=== PATIENT | female | born 1945 | race Caucasian/White ===

== ENCOUNTER → 2018-05-02 08:13 | Outpatient (CLI) | payer MEDICARE, OTHER, SELFPAY ==
[2018-05-02 09:28] LABS: Hemoglobin A1C% w Est Avg Glu 6.4 % (4.0-6.0)
[2018-05-02 09:32] LABS: Creatinine Urine Random 69.5 mg/dL
[2018-05-02 09:44] LABS: Alanine Aminotransferase 23 IU/L (9-52); Albumin 4.3 g/dL (3.5-5.0); Albumin Globulin Ratio 1.1 (1.0-2.8); Alkaline Phosphatase 63 U/L (38-126); Aspartate Aminotransferase 23 IU/L (14-36); BUN Creatinine Ratio 21.4 (6-22); Bilirubin Total 0.8 mg/dL (0.2-1.3); Blood Urea Nitrogen 15 mg/dL (7-17); Calcium 9.2 mg/dL (8.4-10.2); Carbon Dioxide 30 mmol/L (22-32); Chloride 102 mmol/L (98-107); Cholesterol 130 mg/dL (140-199); Estimated Glomerular Filt Rate > 60.0 mL/min (>60); Globulin 3.8 g/dL (1.7-4.1); Glucose 78 mg/dL (80-110); HDL Cholesterol 36 mg/dL (40-60); HEMOLYSIS < 15 (0-50); LDL Cholesterol Calculated 70 mg/dL (<100); Potassium 3.9 mmol/L (3.4-5.1); Sodium 140 mmol/L (137-145); Total Protein 8.1 g/dL (6.3-8.2); Triglycerides 118 mg/dL (35-150)
[2018-05-02 09:50] LABS: Microalbumi Creatinin Ratio Ur 8.6 ug/mg CR (<30); Microalbumin Urine Random < 0.6 mg/dL (0-1.6)
[2018-05-02 10:05] LABS: Thyroid Stimulating Hormone 4.03 uIU/mL (0.47-4.68)
== END ==
PROVIDERS: PCP Physician Assistant; Visit Provider Physician Assistant
DX: E11.9 Type 2 diabetes mellitus without complications (principal); E78.5 Hyperlipidemia, unspecified; I10 Essential (primary) hypertension
CPT/HCPCS: 36415; 80053; 80061; 82043; 82570; 83036; 84443

== ENCOUNTER → 2018-05-31 11:38 | Outpatient (CLI) | payer MEDICARE, OTHER, SELFPAY ==
--- NOTE | 2018-05-31 11:39 | DI.MG.S_ITS ---
BILATERAL DIGITAL SCREENING MAMMOGRAM 3D/2D WITH CAD: 05/31/2018 CLINICAL: Routine screening. Comparison is made to exams dated: 02/28/2016 mammogram, 10/30/2014 mammogram, and 04/17/2013 mammogram - [facility]. The tissue of both breasts is predominantly fatty. Current study was also evaluated with a Computer Aided Detection (CAD) system. No significant masses, calcifications, or other findings are seen in either breast. There has been no significant interval change. IMPRESSION: NEGATIVE There is no mammographic evidence of malignancy. A 1 year screening mammogram is recommended. This exam was interpreted at Station ID: [id number]. NOTE: For mammograms, a report in lay terms will be sent to the patient. Approximately 15% of breast malignancies will not be visualized mammographically. In the management of a palpable breast mass, a negative mammogram must not discourage biopsy of a clinically suspicious lesion. Electronically Signed By: Lloyd smith/tommy:05/31/2018 16:56:34 letter sent: Normal Exam ACR BI-RADS Category 1: Negative 3341F
== END ==
PROVIDERS: Family Provider Physician Assistant; PCP Physician Assistant; Visit Provider Physician Assistant
DX: Z12.31 Encounter for screening mammogram for malignant neoplasm of breast (principal)
CPT/HCPCS: 77063; 77067

== ENCOUNTER → 2019-03-24 09:00 | Outpatient (CLI) | payer MEDICARE, OTHER, SELFPAY ==
[2019-03-24 10:17] LABS: Hemoglobin A1C% w Est Avg Glu 5.7 % (4.0-6.0)
[2019-03-24 10:44] LABS: Alanine Aminotransferase 20 IU/L (9-52); Albumin 4.2 g/dL (3.5-5.0); Albumin Globulin Ratio 1.2 (1.0-2.8); Alkaline Phosphatase 55 U/L (38-126); Aspartate Aminotransferase 23 IU/L (14-36); Bilirubin Total 0.9 mg/dL (0.2-1.3); Blood Urea Nitrogen 18 mg/dL (7-17); Calcium 9.8 mg/dL (8.4-10.2); Carbon Dioxide 28 mmol/L (22-32); Chloride 103 mmol/L (98-107); Cholesterol 140 mg/dL (140-199); Estimated Glomerular Filt Rate > 60.0 mL/min (>60); Globulin 3.4 g/dL (1.7-4.1); Glucose 112 mg/dL (80-110); HDL Cholesterol 36 mg/dL (40-60); HEMOLYSIS < 15 (0-50); LDL Cholesterol Calculated 88 mg/dL (<100); Potassium 3.9 mmol/L (3.4-5.1); Sodium 141 mmol/L (137-145); Total Protein 7.6 g/dL (6.3-8.2); Triglycerides 81 mg/dL (35-150)
[2019-03-24 12:19] LABS: Creatinine Urine Random 82.5 mg/dL
[2019-03-24 12:25] LABS: Microalbumi Creatinin Ratio Ur 7.2 ug/mg CR (<30); Microalbumin Urine Random < 0.6 mg/dL (0-1.6)
== END ==
PROVIDERS: PCP Physician Assistant; Visit Provider Physician Assistant
DX: E11.9 Type 2 diabetes mellitus without complications (principal); E78.5 Hyperlipidemia, unspecified; I10 Essential (primary) hypertension
CPT/HCPCS: 36415; 80053; 80061; 82043; 82570; 83036

== ENCOUNTER → 2019-06-06 15:12 | Outpatient (CLI) | payer MEDICARE, OTHER, SELFPAY ==
--- NOTE | 2019-06-06 15:14 | DI.MG.S_ITS ---
BILATERAL DIGITAL SCREENING MAMMOGRAM 3D/2D WITH CAD: 06/06/2019 CLINICAL: Routine screening. Comparison is made to exams dated: 05/31/2018 mammogram, 02/28/2016 mammogram, and 10/30/2014 mammogram - [facility]. The tissue of both breasts is predominantly fatty. Current study was also evaluated with a Computer Aided Detection (CAD) system. There are benign vascular calcifications and calcifications in both breasts. No significant masses, calcifications, or other findings are seen in either breast. There has been no significant interval change. IMPRESSION: There is no mammographic evidence of malignancy. A 1 year screening mammogram is recommended. This exam was interpreted at Station ID: [id number]. NOTE: For mammograms, a report in lay terms will be sent to the patient. Approximately 15% of breast malignancies will not be visualized mammographically. In the management of a palpable breast mass, a negative mammogram must not discourage biopsy of a clinically suspicious lesion. Electronically Signed By: Ghislaine evans/tommy:06/06/2019 16:06:21 letter sent: Normal Exam ACR BI-RADS Category 2: Benign Finding(s) 3342F
== END ==
PROVIDERS: PCP Physician Assistant; Visit Provider Physician Assistant
DX: Z12.31 Encounter for screening mammogram for malignant neoplasm of breast (principal)
CPT/HCPCS: 77063; 77067

== ENCOUNTER → 2020-04-19 08:11 | Outpatient (CLI) | payer MEDICARE, OTHER, SELFPAY ==
[2020-04-19 09:36] LABS: Basophils Absolute Auto 0 /uL (0-100); Basophils Percent Auto 0.5 % (0-2); Eosinophils Absolute Auto 500 /uL (0-450); Eosinophils Percent Auto 8.9 % (2-4); Hematocrit 37.1 % (36-46); Hemoglobin 12.7 g/dL (12.0-16.0); Lymphocytes Absolute Auto 2900 /uL (1100-4500); Lymphocytes Percent Auto 49.7 % (25-40); Mean Corpuscular HGB Conc 34.3 % (30-36); Mean Corpuscular Hemoglobin 31.8 PG (26-34); Mean Corpuscular Volume 92.6 fL (80-100); Monocytes Absolute Auto 500 /uL (0-900); Monocytes Percent Auto 8.3 % (3-14); Neutrophils Absolute Auto 1900 /uL (1500-7000); Neutrophils Percent Auto 32.6 % (50-75); Platelet Count 240 X10^3/uL (150-400); Red Blood Cell Count 4.01 X10^6/uL (4.0-5.2); Red Cell Distribution Width 13.9 % (11.6-14.8); White Blood Cell Count 5.9 X10^3/uL (4.5-11.0)
[2020-04-19 09:37] LABS: Add Manual Diff / Slide Review SLIDE REVIEW
[2020-04-19 09:44] LABS: Hemoglobin A1C% w Est Avg Glu 7.1 % (4.0-6.0)
[2020-04-19 09:59] LABS: RBC Morphology Normal Morphology
[2020-04-19 10:01] LABS: Platelet Estimate Adequate on smear
[2020-04-19 10:50] LABS: Alanine Aminotransferase 23 IU/L (<35); Albumin 4.2 g/dL (3.5-5.0); Albumin Globulin Ratio 1.1 (1.0-2.8); Alkaline Phosphatase 68 U/L (38-126); Aspartate Aminotransferase 27 IU/L (14-36); BUN Creatinine Ratio 21.9 (6-22); Bilirubin Total 0.7 mg/dL (0.2-1.3); Blood Urea Nitrogen 16 mg/dL (7-17); Calcium 9.5 mg/dL (8.4-10.2); Carbon Dioxide 28 mmol/L (22-32); Chloride 103 mmol/L (98-107); Cholesterol 161 mg/dL (140-199); Estimated Glomerular Filt Rate > 60.0 mL/min (>60); Glucose 112 mg/dL (80-110); HDL Cholesterol 29 mg/dL (40-60); HEMOLYSIS < 15 (0-50); LDL Cholesterol Calculated 109 mg/dL (<100); Potassium 4.3 mmol/L (3.4-5.1); Sodium 138 mmol/L (137-145); Total Protein 8.2 g/dL (6.3-8.2); Triglycerides 117 mg/dL (35-150)
[2020-04-19 10:59] LABS: Vitamin D 25 Hydroxy (D3) 35.4 ng/mL (30.0-100.0)
== END ==
PROVIDERS: PCP Family Medicine; Referring Provider Family Medicine; Visit Provider Family Medicine
DX: E11.9 Type 2 diabetes mellitus without complications (principal); E78.2 Mixed hyperlipidemia; I10 Essential (primary) hypertension; E55.9 Vitamin D deficiency, unspecified
CPT/HCPCS: 36415; 80053; 80061; 82306; 83036; 85025

== ENCOUNTER → 2021-04-09 10:49 | Outpatient (CLI) | payer MEDICARE, SELFPAY ==
--- NOTE | 2021-04-09 10:54 | DI.MG.S_ITS ---
BILATERAL DIGITAL SCREENING MAMMOGRAM 3D/2D WITH CAD: 04/09/2021 CLINICAL: Routine screening. Comparison is made to exams dated: 06/06/2019 mammogram, 05/31/2018 mammogram, and 02/28/2016 mammogram - [facility]. The tissue of both breasts is predominantly fatty. Current study was also evaluated with a Computer Aided Detection (CAD) system. There are benign calcifications in both breasts. There also are benign vascular calcifications in both breasts. No significant masses, calcifications, or other findings are seen in either breast. There has been no significant interval change. IMPRESSION: BENIGN There is no mammographic evidence of malignancy. A 1 year screening mammogram is recommended. This exam was interpreted at Station ID: [id number]. NOTE: For mammograms, a report in lay terms will be sent to the patient. Approximately 15% of breast malignancies will not be visualized mammographically. In the management of a palpable breast mass, a negative mammogram must not discourage biopsy of a clinically suspicious lesion. Electronically Signed By: Dary garcia/tommy:04/09/2021 13:03:57 letter sent: Normal Exam ACR BI-RADS Category 2: Benign Finding(s) 3342F
== END ==
PROVIDERS: PCP Family Medicine; Referring Provider Family Medicine; Visit Provider Family Medicine
DX: Z12.31 Encounter for screening mammogram for malignant neoplasm of breast (principal)
CPT/HCPCS: 77063; 77067

== ENCOUNTER → 2021-04-15 10:15 | Outpatient (CLI) | payer MEDICARE, SELFPAY ==
[2021-04-15 11:29] LABS: Add Manual Diff / Slide Review NO; Basophils Absolute Auto 0 /uL (0-100); Basophils Percent Auto 0.5 % (0-2); Eosinophils Absolute Auto 200 /uL (0-450); Eosinophils Percent Auto 2.8 % (2-4); Hematocrit 38.4 % (36-46); Hemoglobin 12.9 g/dL (12.0-16.0); Lymphocytes Absolute Auto 3000 /uL (1100-4500); Lymphocytes Percent Auto 42.4 % (25-40); Mean Corpuscular HGB Conc 33.5 % (30-36); Mean Corpuscular Hemoglobin 31.6 PG (26-34); Mean Corpuscular Volume 94.2 fL (80-100); Monocytes Absolute Auto 500 /uL (0-900); Monocytes Percent Auto 7.2 % (3-14); Neutrophils Absolute Auto 3300 /uL (1500-7000); Neutrophils Percent Auto 47.1 % (50-75); Platelet Count 237 X10^3/uL (150-400); Red Blood Cell Count 4.08 X10^6/uL (4.0-5.2); Red Cell Distribution Width 13.6 % (11.6-14.8)
[2021-04-15 11:33] LABS: Hemoglobin A1C% w Est Avg Glu 6.9 % (4.0-6.0)
[2021-04-15 11:40] LABS: Alanine Aminotransferase 31 IU/L (<35); Albumin 4.5 g/dL (3.5-5.0); Albumin Globulin Ratio 1.1 (1.0-2.8); Alkaline Phosphatase 68 U/L (38-126); Aspartate Aminotransferase 33 IU/L (14-36); BUN Creatinine Ratio 25.6 (6-22); Bilirubin Total 0.9 mg/dL (0.2-1.3); Blood Urea Nitrogen 20 mg/dL (7-17); Calcium 9.9 mg/dL (8.4-10.2); Carbon Dioxide 28 mmol/L (22-32); Chloride 103 mmol/L (98-107); Cholesterol 172 mg/dL (140-199); Estimated Glomerular Filt Rate > 60.0 mL/min (>60); Globulin 4.2 g/dL (1.7-4.1); Glucose 122 mg/dL (80-110); HDL Cholesterol 34 mg/dL (40-60); HEMOLYSIS < 15 (0-50); LDL Cholesterol Calculated 109 mg/dL (<100); Sodium 139 mmol/L (137-145); Total Protein 8.7 g/dL (6.3-8.2); Triglycerides 144 mg/dL (35-150)
[2021-04-15 11:57] LABS: Vitamin D 25 Hydroxy (D3) 28.5 ng/mL (30.0-100.0)
== END ==
PROVIDERS: PCP Family Medicine; Referring Provider Family Medicine; Visit Provider Family Medicine
DX: E11.9 Type 2 diabetes mellitus without complications (principal); E55.9 Vitamin D deficiency, unspecified; E78.2 Mixed hyperlipidemia; I10 Essential (primary) hypertension
CPT/HCPCS: 36415; 80053; 80061; 82306; 83036; 85025

== ENCOUNTER → 2021-05-22 11:31 | Outpatient (CLI) | payer MEDICARE, SELFPAY ==
--- NOTE | 2021-05-22 11:33 | DI.RAD.S_ITS ---
PROCEDURE: XR KNEE LT 3V INDICATIONS: pain TECHNIQUE: 3 views of the knee were acquired. COMPARISON: [facility], , KNEE 3V LEFT, 06/20/2013, 11:47. FINDINGS: Bones: Moderate tricompartmental osteoarthritis is seen most prominent in medial femoral tibial compartment. No fractures or dislocations. No suspicious bony lesions. Soft tissues: No joint effusion. No suspicious soft tissue calcifications. 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 No fracture or dislocation. No significant joint effusion. Dictated by: Joe Duke M.D. on 05/22/2021 at 12:14 Approved by: Joe Duke M.D. on 05/22/2021 at 12:15
--- NOTE | 2021-05-22 11:33 | DI.RAD.S_ITS ---
PROCEDURE: XR KNEE RT 3V INDICATIONS: pain TECHNIQUE: 3 views of the knee were acquired. COMPARISON: [facility], , KNEE 3V LEFT, 06/20/2013, 11:47. FINDINGS: Bones: No fractures or dislocations. Moderate tricompartmental osteoarthritis is seen more prominent in medial femoral tibial compartment. No suspicious bony lesions. Soft tissues: No joint effusion. No suspicious soft tissue calcifications. 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 No fracture or dislocation. Dictated by: Joe Duke M.D. on 05/22/2021 at 11:58 Approved by: Joe Duke M.D. on 05/22/2021 at 12:14
== END ==
PROVIDERS: PCP Family Medicine; Referring Provider Family Medicine; Visit Provider Family Medicine
DX: M25.561 Pain in right knee (principal); M25.562 Pain in left knee; M16.0 Bilateral primary osteoarthritis of hip; G89.29 Other chronic pain
CPT/HCPCS: 73562

== ENCOUNTER 2021-06-25 08:15 | Outpatient (RCR) | payer MEDICARE, SELFPAY ==
--- NOTE | 2021-06-20 09:58 | PT.OIE ---
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) History of pneumonia (~2013) Hx of cholecystectomy (Unknown) Hx of knee surgery (Unknown) Hx of myocardial infarction (~2013) Hyperlipemia (Unknown) Hypertension (Unknown) Medicare annual wellness visit, subsequent Pyelonephritis (~2013) Somatic dysfunction of lower extremity Vitamin D deficiency Past Surgical History (Last Reviewed 04/16/20 @ 17:09 by Leonides Murray DO) History of back surgery (Unknown) 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) Hx of cholecystectomy (Unknown) Hx of hysterectomy (Unknown) Hx of knee surgery (Unknown) Visit Care Team Role Provider Type Leonides Murray DO Attending Provider Physician Primary Care Provider Referring Provider Specialty: [facility] Address: [address] [place] [address] Email: Physical Therapy Initial Evaluation PT-OP-A Visit Information Start: 06/20/21 09:37 Freq: Status: Active Protocol: Document 06/20/21 09:37 (Rec: 06/20/21 09:58 [email or web address]) Out-Patient Physical Therapy Visit Information Visit Information Visit Type Initial Evaluation Visit Start Time 08:45 Visit Stop Time 09:30 Total Visit Minutes 45 Visit Number 1 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 Recent x-ray shows moderate tricompartmental osteoarthritis more prominent in medial femoral tibial compartment. She also had bilateral cortisone injection at her knees few weeks ago from Dr. Murray. She is feeling better now with pain 3-4/10 but it was 6/10 prior to injection. She stated she had difficulty in walking more than a few blocks, specifically painful climbing stairs. Her pain limits her to go for long walks and kneel to reach for pantry. She lives in a 5th wheel so she does climb steps and reach down often. Prior Treatments and Tests meniscal repair bilateral within the past 10 years. Pt does not recall whether it's medial / lateral Cortisone injection from Dr. Murray on both knees recent x-ray =Moderate tricompartmental osteoarthritis more prominent in medial femoral tibial compartment PT-OP-C Subjective Start: 06/20/21 09:37 Freq: Status: Active Protocol: Document 06/20/21 09:37 HH (Rec: 06/20/21 09:58 HH [email or web address]) Patient Questionnaires Lower Extremity Functional Scale LEFS Score 49 LEFS Impairment 20 to 39% Impaired (Score 48- 62) OP-PT Pain Assessment Location B knee Pain Location Details medial knee joint line Intensity 4 Scale Used Numeric (0 - 10) Description Aching Frequency Frequent Pain Aggravating Factors ADL's,Activity,Exercise, Standing,Walking,Stair Climbing Pain Alleviating Factors Inactivity PT-OP-D Balance Start: 06/20/21 09:37 Freq: Status: Active Protocol: Document 06/20/21 09:37 HH (Rec: 06/20/21 09:58 HH [email or web address]) Balance Tests Single Limb Standing Single Limb- Right >30 Single Limb- Left >30 PT-OP-F Manual Assessment Start: 06/20/21 09:37 Freq: Status: Active Protocol: Document 06/20/21 09:37 HH (Rec: 06/20/21 09:58 HH [email or web address]) Manual Assessments Soft Tissue Assessment Soft Tissue Mobility Assessment significant toncity at hip adductors, and abductors. PT-OP-G Mobility & Gait Start: 06/20/21 09:37 Freq: Status: Active Protocol: Document 06/20/21 09:37 HH (Rec: 06/20/21 09:58 HH [email or web address]) OP Gait Assessment Comments Gait Comments dec stride length and lateral thrust noted at R/L knee during stance phase. PT-OP-K Range of Motion Start: 06/20/21 09:37 Freq: Status: Active Protocol: Document 06/20/21 09:37 HH (Rec: 06/20/21 09:58 [email or web address]) Knee Goniometric Range of Motion Knee Right Flexion Active (degrees) 131 Extension Passive (degrees) 4 Left Flexion Active (degrees) 137 Extension Passive (degrees) 3 Comments pain with end range flexion. PT-OP-L Special Tests Start: 06/20/21 09:37 Freq: Status: Active Protocol: Document 06/20/21 09:37 HH (Rec: 06/20/21 09:58 [email or web address]) Special Tests Knee Special Tests Patellar Grind Test Test Results +VE Muriel Test Test Results -ve Apley's Compression Test Results -ve Apprehension Test Test Results -ve Varus- 0 Degrees Test Results -ve Valgus- 0 Degrees Test Results -ve Varus- 25 Degrees Test Results -ve Valgus- 25 Degrees Test Results -ve PT-OP-M Strength Start: 06/20/21 09:37 Freq: Status: Active Protocol: Document 06/20/21 09:37 HH (Rec: 06/20/21 09:58 [email or web address]) Hip Strength Hip Manual Muscle Testing Right Flexion (L2) 4- Good- Extension (S1) 4- Good- Abduction 4- Good- Adduction 4- Good- Left Flexion (L2) 4- Good- Extension (S1) 4- Good- Abduction 4- Good- Adduction 4- Good- Knee Strength Knee Manual Muscle Testing Right Flexion (S2) 4 Good Extension (L3) 4 Good Left Flexion (S2) 4 Good Extension (L3) 4 Good Ankle/Foot Strength Ankle and Foot Manual Muscle Testing Right Dorsiflexion (L4) 4 Good Plantarflexion (S1) 4 Good Left Dorsiflexion (L4) 4 Good Plantarflexion (S1) 4 Good PT-OP-Q Treatments Start: 06/20/21 09:37 Freq: Status: Active Protocol: Document 06/20/21 09:37 HH (Rec: 06/20/21 09:58 [email or web address]) Therapeutic Exercises Supine Exercises hip add squeeze Side bilateral Reps/Minutes 10s x10 Comments for HEP piriformis stretch Side bilateral Reps/Minutes 15s x 5 Comments for HEP Standing Exercises calf raises Side bilateral Reps/Minutes 10 x2 tennis ball release Standing Exercise Name on bilateral buttocks Comments for hEP PT-OP-T Assessment and Plan Start: 06/20/21 09:37 Freq: Status: Active Protocol: Document 06/20/21 09:37 (Rec: 06/20/21 09:58 [email or web address]) Physical Therapy Assessment Rehab Potential Rehabilitation Potential Good Evaluation Complexity Number of Personal Factors/Comorbidities 1-2 Number of Body Systems Impaired 1-2 Clinical Presentation at Evaluation Stable Impairments Impairments Activity Tolerance,Balance, Functional Activities, Functional Mobility,Gait,Pain, Posture,ROM,Soft Tissue Mobility,Strength Goals HEP Impairment pt does not have HEP Short Term Goal (STG) pt will comply to daily HEP safely and independently without increase in pain STG Duration 4weeks LEFS Impairment pt scores 49 on LEFS Short Term Goal (STG) pt will be able to show improved mobility and strength by scoring 55 on LEFS STG Duration 4 weeks Assessment Summary Assessment Emily is a 76 yo female here for her chronic bilateral knee pain R>L which affects her ability to walk, kneel and climb stairs. Her recent x- ray shows Moderate tricompartmental osteoarthritis more prominent in medial femoral tibial compartment. Upon assessment, pt's symptoms are minimal possibly d/t her recent cortisone injection. She only has discomfort with end range flexion and patella grind test . However, She presents moderate knee varus posture with lateral knee thrust during gait. Pt will benefit from skilled therapy for postural correction, hip adductors strengthening to improve her knee strength and stability. However, [place] so her progress will be limited. Will focus primarily on pt education. Physical Therapy Plan Frequency and Duration Frequency of Treatment 1-2/wk Duration of Treatment 4 weeks Plan of Care Start Date 06/20/21 Plan of Care End Date 07/20/21 Therapeutic Interventions Therapeutic Interventions Aquatic Therapy,Balance Training,Gait Training,Home Exercise Program,Joint Mobilizations,Manual Therapy, Neuromuscular Re-education, Patient/Caregiver Education, Self-Care/Home Management,Soft Tissue Mobilization,Taping, Therapeutic Activities, Therapeutic Exercises Modalities Cold Pack/Ice Massage,Electric Stimulation,Hot Packs, Infrared Therapy,Ultrasound Next Visit Focus/Plan Next Note Type Treatment Note Next Visit Plan hip add strengthening STM on hip hip stretches
--- NOTE | 2021-06-20 09:58 | PT.OPPOC ---
Physical, Occupational & Speech Therapy At [facility] Current Diagnoses Other chronic pain (06/20/21) Pain in right knee (06/20/21) Pain in left knee (06/20/21) Visit Care Team Role Provider Type Leonides Murray DO Attending Provider Physician Primary Care Provider Referring Provider Specialty: Family Practice Address: [address] [place] [address], [facility] Email: Plan Of Care PT-OP-T Assessment and Plan Start: 06/20/21 09:37 Freq: Status: Active Protocol: Document 06/20/21 09:37 (Rec: 06/20/21 09:58 [email or web address]) Physical Therapy Assessment Rehab Potential Rehabilitation Potential Good Evaluation Complexity Number of Personal Factors/Comorbidities 1-2 Number of Body Systems Impaired 1-2 Clinical Presentation at Evaluation Stable Impairments Impairments Activity Tolerance,Balance, Functional Activities, Functional Mobility,Gait,Pain, Posture,ROM,Soft Tissue Mobility,Strength Goals HEP Impairment pt does not have HEP Short Term Goal (STG) pt will comply to daily HEP safely and independently without increase in pain STG Duration 4weeks LEFS Impairment pt scores 49 on LEFS Short Term Goal (STG) pt will be able to show improved mobility and strength by scoring 55 on LEFS STG Duration 4 weeks Assessment Summary Assessment Emily is a 76 yo female here for her chronic bilateral knee pain R>L which affects her ability to walk, kneel and climb stairs. Her recent x- ray shows Moderate tricompartmental osteoarthritis more prominent in medial femoral tibial compartment. Upon assessment, pt's symptoms are minimal possibly d/t her recent cortisone injection. She only has discomfort with end range flexion and patella grind test . However, She presents moderate knee varus posture with lateral knee thrust during gait. Pt will benefit from skilled therapy for postural correction, hip adductors strengthening to improve her knee strength and stability. However, [place] is [place] so her progress will be limited. Will focus primarily on pt education. Physical Therapy Plan Frequency and Duration Frequency of Treatment 1-2/wk Duration of Treatment 4 weeks Plan of Care Start Date 06/20/21 Plan of Care End Date 07/20/21 Therapeutic Interventions Therapeutic Interventions Aquatic Therapy,Balance Training,Gait Training,Home Exercise Program,Joint Mobilizations,Manual Therapy, Neuromuscular Re-education, Patient/Caregiver Education, Self-Care/Home Management,Soft Tissue Mobilization,Taping, Therapeutic Activities, Therapeutic Exercises Modalities Cold Pack/Ice Massage,Electric Stimulation,Hot Packs, Infrared Therapy,Ultrasound Next Visit Focus/Plan Next Note Type Treatment Note Next Visit Plan hip add strengthening STM on hip hip stretches Plan of Care Dates Plan of Care Start Date 06/20/21 Plan of Care End Date 07/20/21 Electronically Signed by: Steffen Medel, PT 06/20/21 0958 Please Sign and Return: I have reviewed this Plan of Care and certify that the skilled therapy services above are required to meet the patient?s needs. Physician Signature Date Printed Name and Credentials Clinical Instructor Signature Printed Name and Credentials
--- NOTE | 2021-06-23 10:32 | PT.OTN ---
Current Diagnoses Other chronic pain (06/23/21) Pain in right knee (06/23/21) Pain in left knee (06/23/21) Physical Therapy Treatment Note PT-OP-A Visit Information Start: 06/20/21 09:37 Freq: Status: Active Protocol: Document 06/23/21 09:49 HH (Rec: 06/23/21 10:31 [id number]) Out-Patient Physical Therapy Visit Information Visit Information Visit Type Treatment Note Visit Start Time 09:48 Visit Stop Time 10:30 Total Visit Minutes 42 Visit Number 2/ Number of [employer] GROUNDS Visits 0 PT-OP-B Current Condition Start: 06/20/21 09:37 Freq: Status: Active Protocol: Document 06/20/21 09:37 HH (Rec: 06/20/21 09:58 HH [email or web address]) Current Condition History of Current Condition Onset Date couple months ago Current Complaints Bilateral knee pain R>L, difficulty in walking History of Current Condition Emily is a 76 yo female here for her bilateral knee pain R >L. Recent x-ray shows moderate tricompartmental osteoarthritis more prominent in medial femoral tibial compartment. She also had bilateral cortisone injection at her knees few weeks ago from Dr. Murray. She is feeling better now with pain 3-4/10 but it was 6/10 prior to injection. She stated she had difficulty in walking more than a few blocks, specifically painful climbing stairs. Her pain limits her to go for long walks and kneel to reach for pantry. She lives in a 5th wheel so she does climb steps and reach down often. Prior Treatments and Tests meniscal repair bilateral within the past 10 years. Pt does not recall whether it's medial / lateral Cortisone injection from Dr. Murray on both knees recent x-ray =Moderate tricompartmental osteoarthritis more prominent in medial femoral tibial compartment PT-OP-C Subjective Start: 06/20/21 09:37 Freq: Status: Active Protocol: Document 06/23/21 09:49 HH (Rec: 06/23/21 10:31 [id number]) OP-PT Subjective Patient Comments Patient Comments Molly been doing my exercises and they feel ok. PT-OP-D Balance Start: 06/20/21 09:37 Freq: Status: Active Protocol: Document 06/20/21 09:37 HH (Rec: 06/20/21 09:58 HH [email or web address]) Balance Tests Single Limb Standing Single Limb- Right >30 Single Limb- Left >30 PT-OP-F Manual Assessment Start: 06/20/21 09:37 Freq: Status: Active Protocol: Document 06/20/21 09:37 HH (Rec: 06/20/21 09:58 [email or web address]) Manual Assessments Soft Tissue Assessment Soft Tissue Mobility Assessment significant toncity at hip adductors, and abductors. PT-OP-G Mobility & Gait Start: 06/20/21 09:37 Freq: Status: Active Protocol: Document 06/20/21 09:37 HH (Rec: 06/20/21 09:58 [email or web address]) OP Gait Assessment Comments Gait Comments dec stride length and lateral thrust noted at R/L knee during stance phase. PT-OP-K Range of Motion Start: 06/20/21 09:37 Freq: Status: Active Protocol: Document 06/20/21 09:37 HH (Rec: 06/20/21 09:58 [email or web address]) Knee Goniometric Range of Motion Knee Right Flexion Active (degrees) 131 Extension Passive (degrees) 4 Left Flexion Active (degrees) 137 Extension Passive (degrees) 3 Comments pain with end range flexion. PT-OP-L Special Tests Start: 06/20/21 09:37 Freq: Status: Active Protocol: Document 06/20/21 09:37 HH (Rec: 06/20/21 09:58 [email or web address]) Special Tests Knee Special Tests Patellar Grind Test Test Results +VE Muriel Test Test Results -ve Apley's Compression Test Results -ve Apprehension Test Test Results -ve Varus- 0 Degrees Test Results -ve Valgus- 0 Degrees Test Results -ve Varus- 25 Degrees Test Results -ve Valgus- 25 Degrees Test Results -ve PT-OP-M Strength Start: 06/20/21 09:37 Freq: Status: Active Protocol: Document 06/20/21 09:37 HH (Rec: 06/20/21 09:58 [email or web address]) Hip Strength Hip Manual Muscle Testing Right Flexion (L2) 4- Good- Extension (S1) 4- Good- Abduction 4- Good- Adduction 4- Good- Left Flexion (L2) 4- Good- Extension (S1) 4- Good- Abduction 4- Good- Adduction 4- Good- Knee Strength Knee Manual Muscle Testing Right Flexion (S2) 4 Good Extension (L3) 4 Good Left Flexion (S2) 4 Good Extension (L3) 4 Good Ankle/Foot Strength Ankle and Foot Manual Muscle Testing Right Dorsiflexion (L4) 4 Good Plantarflexion (S1) 4 Good Left Dorsiflexion (L4) 4 Good Plantarflexion (S1) 4 Good PT-OP-Q Treatments Start: 06/20/21 09:37 Freq: Status: Active Protocol: Document 06/23/21 09:49 (Rec: 06/23/21 10:31 [id number]) Cardio Equipment Recumbent Bicycle Duration (Minutes) 5 Resistance 5 Seat Position 3 Therapeutic Exercises Supine Exercises bridging Side bilateral Equipment Used ball between. Reps/Minutes 10 x2, 3sec hold at top Comments for HEP hip add squeeze Side bilateral Reps/Minutes 10s x10 Comments review today. piriformis stretch Side bilateral Reps/Minutes 15s x 5 Comments review today Standing Exercises step up Side bilateral Equipment Used 4 inch step Reps/Minutes 10x 2 Comments next to L rail squat Side bilateral Reps/Minutes 8x2 calf raises Side bilateral Reps/Minutes 10 x2 Therapeutic Activity Therapeutic Activity STS Reps/Minutes 10 x2 Comments for HEP, cues on preventing using the trunk Manual Therapy Treatment Soft Tissue Mobilization R hip add Mobilization Type Rolling Intensity/Depth Moderate Body Position Supine R glute Mobilization Type Myofascial Release,Sustained Pressure,Trigger Point Release ,Other Intensity/Depth Moderate Body Position Sidelying PT-OP-T Assessment and Plan Start: 06/20/21 09:37 Freq: Status: Active Protocol: Document 06/23/21 09:49 (Rec: 06/23/21 10:31 [id number]) Physical Therapy Assessment Goals HEP Impairment pt does not have HEP Short Term Goal (STG) pt will comply to daily HEP safely and independently without increase in pain STG Duration 4weeks LEFS Impairment pt scores 49 on LEFS Short Term Goal (STG) pt will be able to show improved mobility and strength by scoring 55 on LEFS STG Duration 4 weeks Assessment Summary Assessment Added bridging, STS and step up today to HEP to focus on knee and hip strengthening. Pt chuck session very well without discomfort. Physical Therapy Plan Frequency and Duration Frequency of Treatment 1-2/wk Duration of Treatment 4 weeks Plan of Care Start Date 06/20/21 Plan of Care End Date 07/20/21 Therapeutic Interventions Therapeutic Interventions Aquatic Therapy,Balance Training,Gait Training,Home Exercise Program,Joint Mobilizations,Manual Therapy, Neuromuscular Re-education, Patient/Caregiver Education, Self-Care/Home Management,Soft Tissue Mobilization,Taping, Therapeutic Activities, Therapeutic Exercises Modalities Cold Pack/Ice Massage,Electric Stimulation,Hot Packs, Infrared Therapy,Ultrasound Next Visit Focus/Plan Next Note Type Treatment Note Next Visit Plan hip add strengthening STM on hip hip stretches
--- NOTE | 2021-06-25 08:57 | PT.OTN ---
Current Diagnoses Other chronic pain (06/25/21) Pain in right knee (06/25/21) Pain in left knee (06/25/21) Physical Therapy Treatment Note PT-OP-A Visit Information Start: 06/20/21 09:37 Freq: Status: Active Protocol: Document 06/25/21 08:17 HH (Rec: 06/25/21 08:57 HH [id number]) Out-Patient Physical Therapy Visit Information Visit Information Visit Type Discharge Summary Visit Start Time 08:16 Visit Stop Time 09:00 Total Visit Minutes 44 Visit Number 3/99 Number of PHYSICIAN GENERAL PRACTICE Visits 0 PT-OP-B Current Condition Start: 06/20/21 09:37 Freq: Status: Active Protocol: Document 06/20/21 09:37 HH (Rec: 06/20/21 09:58 HH [email or web address]) Current Condition History of Current Condition Onset Date couple months ago Current Complaints Bilateral knee pain R>L, difficulty in walking History of Current Condition Eimly is a 76 yo female here for her bilateral knee pain R >L. Recent x-ray shows moderate tricompartmental osteoarthritis more prominent in medial femoral tibial compartment. She also had bilateral cortisone injection at her knees few weeks ago from Dr. Murray. She is feeling better now with pain 3-4/10 but it was 6/10 prior to injection. She stated she had difficulty in walking more than a few blocks, specifically painful climbing stairs. Her pain limits her to go for long walks and kneel to reach for pantry. She lives in a 5th wheel so she does climb steps and reach down often. Prior Treatments and Tests meniscal repair bilateral within the past 10 years. Pt does not recall whether it's medial / lateral Cortisone injection from Dr. Murray on both knees recent x-ray =Moderate tricompartmental osteoarthritis more prominent in medial femoral tibial compartment PT-OP-C Subjective Start: 06/20/21 09:37 Freq: Status: Active Protocol: Document 06/25/21 08:17 HH (Rec: 06/25/21 08:57 HH [id number]) OP-PT Subjective Patient Comments Patient Comments My knees are doing okay so far. Patient Reported Progress Improving PT-OP-D Balance Start: 06/20/21 09:37 Freq: Status: Active Protocol: Document 06/20/21 09:37 HH (Rec: 06/20/21 09:58 HH [email or web address]) Balance Tests Single Limb Standing Single Limb- Right >30 Single Limb- Left >30 PT-OP-F Manual Assessment Start: 06/20/21 09:37 Freq: Status: Active Protocol: Document 06/20/21 09:37 HH (Rec: 06/20/21 09:58 [email or web address]) Manual Assessments Soft Tissue Assessment Soft Tissue Mobility Assessment significant toncity at hip adductors, and abductors. PT-OP-G Mobility & Gait Start: 06/20/21 09:37 Freq: Status: Active Protocol: Document 06/20/21 09:37 HH (Rec: 06/20/21 09:58 [email or web address]) OP Gait Assessment Comments Gait Comments dec stride length and lateral thrust noted at R/L knee during stance phase. PT-OP-K Range of Motion Start: 06/20/21 09:37 Freq: Status: Active Protocol: Document 06/20/21 09:37 HH (Rec: 06/20/21 09:58 [email or web address]) Knee Goniometric Range of Motion Knee Right Flexion Active (degrees) 131 Extension Passive (degrees) 4 Left Flexion Active (degrees) 137 Extension Passive (degrees) 3 Comments pain with end range flexion. PT-OP-L Special Tests Start: 06/20/21 09:37 Freq: Status: Active Protocol: Document 06/20/21 09:37 HH (Rec: 06/20/21 09:58 [email or web address]) Special Tests Knee Special Tests Patellar Grind Test Test Results +VE Muriel Test Test Results -ve Apley's Compression Test Results -ve Apprehension Test Test Results -ve Varus- 0 Degrees Test Results -ve Valgus- 0 Degrees Test Results -ve Varus- 25 Degrees Test Results -ve Valgus- 25 Degrees Test Results -ve PT-OP-M Strength Start: 06/20/21 09:37 Freq: Status: Active Protocol: Document 06/20/21 09:37 HH (Rec: 06/20/21 09:58 [email or web address]) Hip Strength Hip Manual Muscle Testing Right Flexion (L2) 4- Good- Extension (S1) 4- Good- Abduction 4- Good- Adduction 4- Good- Left Flexion (L2) 4- Good- Extension (S1) 4- Good- Abduction 4- Good- Adduction 4- Good- Knee Strength Knee Manual Muscle Testing Right Flexion (S2) 4 Good Extension (L3) 4 Good Left Flexion (S2) 4 Good Extension (L3) 4 Good Ankle/Foot Strength Ankle and Foot Manual Muscle Testing Right Dorsiflexion (L4) 4 Good Plantarflexion (S1) 4 Good Left Dorsiflexion (L4) 4 Good Plantarflexion (S1) 4 Good PT-OP-Q Treatments Start: 06/20/21 09:37 Freq: Status: Active Protocol: Document 06/25/21 08:17 (Rec: 06/25/21 08:57 [id number]) Cardio Equipment Recumbent Bicycle Duration (Minutes) 6 Resistance 5 Seat Position 3 Therapeutic Exercises Supine Exercises bridging Side bilateral Equipment Used ball between. Reps/Minutes 10 x2, 3sec hold at top Comments review hip add squeeze Side bilateral Reps/Minutes 10s x10 Comments review today. piriformis stretch Side bilateral Reps/Minutes 15s x 5 Comments review today Sitting Exercises LAQ Side bilateral Equipment Used 5 # ankle weight Reps/Minutes 10 x2 Comments for HEP Standing Exercises step up Side bilateral Equipment Used 4 inch step Reps/Minutes 10x 2 Comments next to L rail squat Side bilateral Reps/Minutes 10x2 Comments review calf raises Side bilateral Reps/Minutes 10 x2 tennis ball release Standing Exercise Name on bilateral buttocks Comments for hEP PT-OP-T Assessment and Plan Start: 06/20/21 09:37 Freq: Status: Active Protocol: Document 06/25/21 08:17 (Rec: 06/25/21 08:57 [id number]) Physical Therapy Assessment Goals HEP Impairment pt does not have HEP Short Term Goal (STG) pt will comply to daily HEP safely and independently without increase in pain STG Duration 4weeks LEFS Impairment pt scores 49 on LEFS Short Term Goal (STG) pt will be able to show improved mobility and strength by scoring 55 on LEFS STG Duration 4 weeks Assessment Summary Assessment Since pt is moving to [place] next week, therefore, spent time to review all her HEP today before DC. Physical Therapy Plan Frequency and Duration Frequency of Treatment 1-2/wk Duration of Treatment 4 weeks Plan of Care Start Date 06/20/21 Plan of Care End Date 07/20/21 Therapeutic Interventions Therapeutic Interventions Aquatic Therapy,Balance Training,Gait Training,Home Exercise Program,Joint Mobilizations,Manual Therapy, Neuromuscular Re-education, Patient/Caregiver Education, Self-Care/Home Management,Soft Tissue Mobilization,Taping, Therapeutic Activities, Therapeutic Exercises Modalities Cold Pack/Ice Massage,Electric Stimulation,Hot Packs, Infrared Therapy,Ultrasound Discharge Physical Therapy Discharge Reasons Patient Request
== END 2021-07-22 10:18 ==
LOC: PHYS 08:15
PROVIDERS: PCP Family Medicine; Referring Provider Family Medicine; Visit Provider Family Medicine
DX: M25.561 Pain in right knee (principal); M25.562 Pain in left knee; G89.29 Other chronic pain
CPT/HCPCS: 97110; 97140; 97161; 97530

== ENCOUNTER → 2022-04-07 09:38 | Outpatient (CLI) | payer MEDICARE, SELFPAY ==
[2022-04-07 10:48] LABS: Hemoglobin A1C% w Est Avg Glu 8.2 % (4.0-6.0)
[2022-04-07 10:59] LABS: Alanine Aminotransferase 30 IU/L (<35); Albumin 4.2 g/dL (3.5-5.0); Albumin Globulin Ratio 1.1 (1.0-2.8); Alkaline Phosphatase 58 U/L (38-126); Aspartate Aminotransferase 24 IU/L (14-36); Bilirubin Total 0.9 mg/dL (0.2-1.3); Blood Urea Nitrogen 20 mg/dL (7-17); Calcium 9.1 mg/dL (8.4-10.2); Carbon Dioxide 30 mmol/L (22-32); Chloride 102 mmol/L (98-107); Cholesterol 176 mg/dL (140-199); Estimated Glomerular Filt Rate > 60 mL/min (>60); Globulin 3.7 g/dL (1.7-4.1); Glucose 128 mg/dL (80-110); HDL Cholesterol 35 mg/dL (40-60); HEMOLYSIS < 15 (0-50); LDL Cholesterol Calculated 112 mg/dL (<100); Potassium 3.6 mmol/L (3.4-5.1); Sodium 139 mmol/L (137-145); Total Protein 7.9 g/dL (6.3-8.2); Triglycerides 147 mg/dL (35-150)
[2022-04-07 11:15] LABS: Vitamin D 25 Hydroxy (D3) 38.6 ng/mL (30.0-100.0)
== END ==
PROVIDERS: PCP Family Medicine; Referring Provider Family Medicine; Visit Provider Family Medicine
DX: E11.9 Type 2 diabetes mellitus without complications (principal); E55.9 Vitamin D deficiency, unspecified; E78.2 Mixed hyperlipidemia; I10 Essential (primary) hypertension
CPT/HCPCS: 36415; 80053; 80061; 82306; 83036

== ENCOUNTER → 2022-07-08 09:28 | Outpatient (CLI) | payer MEDICARE, SELFPAY ==
[2022-07-08 10:41] LABS: Alanine Aminotransferase 26 IU/L (<35); Albumin 4.2 g/dL (3.5-5.0); Albumin Globulin Ratio 1.1 (1.0-2.8); Alkaline Phosphatase 62 U/L (38-126); Aspartate Aminotransferase 27 IU/L (14-36); BUN Creatinine Ratio 24.3 (6-22); Bilirubin Total 0.7 mg/dL (0.2-1.3); Blood Urea Nitrogen 17 mg/dL (7-17); Calcium 9.2 mg/dL (8.4-10.2); Carbon Dioxide 26 mmol/L (22-32); Chloride 103 mmol/L (98-107); Estimated Glomerular Filt Rate > 60 mL/min (>60); Glucose 113 mg/dL (80-110); HEMOLYSIS < 15 (0-50); Potassium 3.4 mmol/L (3.4-5.1); Sodium 141 mmol/L (137-145); Total Protein 8.2 g/dL (6.3-8.2)
[2022-07-08 10:45] LABS: Hemoglobin A1C% w Est Avg Glu 7.2 % (4.0-6.0)
== END ==
PROVIDERS: PCP Family Medicine; Referring Provider Family Medicine; Visit Provider Family Medicine
DX: E11.9 Type 2 diabetes mellitus without complications (principal); E78.2 Mixed hyperlipidemia; I10 Essential (primary) hypertension
CPT/HCPCS: 36415; 80053; 83036

== ENCOUNTER → 2023-03-09 12:01 | Outpatient (CLI) | payer MEDICARE, SELFPAY ==
--- NOTE | 2023-03-25 09:20 | DIAB.MNT ---
Initial Diabetes Medical Nutrition Therapy Assessment Name: Emily Valente Date: 03/09/23 Time: 1-2p Dx: Type II Diabetes Provider: Trevor Diaz presents today for initial DM visit. 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 Endorses DM ed in 2011 at diagnosis in [place] Last eye apt 2 years ago Last dental 5 years ago Diet is vegetarian. Wants to confirm her diet choices are ideal for DM management and overall health. Also interested in discussing weight loss and potential nutrient deficiencies with vegetarian diet. Diet Recall: 830a: egg, veggie sausage, coffee and water 1p: veggies, cheese, low carb wrap 3-6p: fruit or veggies 6p: veggies, 1/2c rice, vegetarian chx strips 830p: fruit cup or low carb ice cream Idana: water x 60oz, coffee, diet soda occasionally Anthropometrics: Ht: 65 Wt: 176# reported Weight history: States preferred wt is 150#. Current BMI of 29. Physical Activity: Barriers include bad knees. Walks when knees do not bother her. Aims for 5x per week for 15-30 min 1-2x per day. Self-Monitoring Blood Glucose: FB-129mg/dl and pc readings 150-200mg/dl. Feels shaky and foggy at 70mg/dl. Treats with toast and low sugar jelly, results in 30mg/dl increase. Diabetes Medications: 30u Glargine HS Pertinent Labs: HgA1c: 8.2% 7.2% 07/2022 Past Medical History: (Last Updated 05/22/21 @ 11:32 by Javier Murray, DO) Bilateral knee pain Apvb-Fkif-Ilrh syndrome (Unknown) Carpal tunnel syndrome (~2013) Diabetes (Unknown) History of pneumonia (~2013) Hx of myocardial infarction (~2013) Hyperlipemia (Unknown) Hypertension (Unknown) Medicare annual wellness visit, subsequent Pyelonephritis (~2013) -sepsis-TN Somatic dysfunction of lower extremity Vitamin D deficiency Nutrition Rx: Plate Method Nutrition Diagnosis: - Predicted excessive Na intake r/t processed vegetarian options aeb diet recall Intervention: This participant was very receptive. Provided appropriate educational handouts. Discussed the following topics: Brief pathophysiology of T2DM SMBG goals and trends, s/s hypoglycemia Vegetarian diets: frank nutrients, Na in processed options healthy weight for age Focus on LBM Plate Method, Potential for adding resistance training safely Created SMART goals for patient self-care and success. Goals: Continue walks as able Aim for 30 min activity per day of some kind Consider resistance training Try to vary SMBG and write down to determine trends Follow-up: [facility] follow-up prn. Provided option to f/u in Aug after RD returns from leave or other options for support in the interim prn. Heather Buckley, [place], [facility] Certified Diabetes Care and Certified Pesticide Applicator P: [phone] Thank you for this referral
== END ==
PROVIDERS: Absent Provider Family Medicine; Family Provider Family Medicine; PCP Family Medicine; Referring Provider Family Medicine; Visit Provider Family Medicine
DX: E11.9 Type 2 diabetes mellitus without complications (principal); Z79.4 Long term (current) use of insulin; Z71.3 Dietary counseling and surveillance
CPT/HCPCS: 97802

== ENCOUNTER → 2023-03-11 08:00 | Outpatient (CLI) | payer MEDICARE, SELFPAY ==
--- NOTE | 2023-03-11 08:02 | DI.MG.S_ITS ---
BILATERAL DIGITAL SCREENING MAMMOGRAM 3D/2D WITH CAD: 03/11/2023 CLINICAL: Routine screening. Comparison is made to exams dated: 04/09/2021 mammogram, 06/06/2019 mammogram, and 05/31/2018 mammogram - [facility]. There are scattered areas of fibroglandular density in both breasts (category b / 25%-50% glandular tissue). Current study was also evaluated with a Computer Aided Detection (CAD) system. There are benign calcifications in both breasts. There also are benign vascular calcifications in both breasts. No significant masses, calcifications, or other findings are seen in either breast. There has been no significant interval change. IMPRESSION: BENIGN There is no mammographic evidence of malignancy. A 1 year screening mammogram is recommended. Based on the Tyrer Cuzick model (a risk assessment model) the patient's lifetime risk is 3.2% and her 10 year risk is 3.2%. According to the ACR, ACS, and NCCN guidelines, an annual breast MRI exam along with mammogram is recommended if the patient's lifetime risk is 20% or greater. This exam was interpreted at Station ID: [id number]. NOTE: For mammograms, a report in lay terms will be sent to the patient. Approximately 15% of breast malignancies will not be visualized mammographically. In the management of a palpable breast mass, a negative mammogram must not discourage biopsy of a clinically suspicious lesion. Electronically Signed By: Román aragon/tommy:03/11/2023 08:48:37 letter sent: Normal Exam ACR BI-RADS Category 2: Benign Finding(s) 3342F
[2023-03-11 08:49] LABS: Add Manual Diff / Slide Review NO; Basophils Absolute Auto 0 /uL (0-100); Basophils Percent Auto 0.7 % (0-2); Eosinophils Absolute Auto 500 /uL (0-450); Eosinophils Percent Auto 7.6 % (2-4); Hematocrit 37.7 % (36-46); Hemoglobin 12.8 g/dL (12.0-16.0); Lymphocytes Absolute Auto 2800 /uL (1100-4500); Lymphocytes Percent Auto 41.6 % (25-40); Monocytes Absolute Auto 600 /uL (0-900); Monocytes Percent Auto 9.4 % (3-14); Neutrophils Absolute Auto 2800 /uL (1500-7000); Neutrophils Percent Auto 40.7 % (50-75); Platelet Count 230 X10^3/uL (150-400); Red Blood Cell Count 4.01 X10^6/uL (4.0-5.2); Red Cell Distribution Width 13.7 % (11.6-14.8); White Blood Cell Count 6.8 X10^3/uL (4.5-11.0)
[2023-03-11 09:04] LABS: Alanine Aminotransferase 23 IU/L (<35); Albumin Globulin Ratio 1.2 (1.0-2.8); Alkaline Phosphatase 53 U/L (38-126); Aspartate Aminotransferase 21 IU/L (14-36); BUN Creatinine Ratio 21.5 (6-22); Bilirubin Total 0.5 mg/dL (0.2-1.3); Blood Urea Nitrogen 17 mg/dL (7-17); Carbon Dioxide 30 mmol/L (22-32); Chloride 101 mmol/L (98-107); Estimated Glomerular Filt Rate > 60 mL/min (>60); Globulin 3.4 g/dL (1.7-4.1); Glucose 108 mg/dL (80-110); HEMOLYSIS < 15 (0-50); Potassium 3.8 mmol/L (3.4-5.1); Sodium 138 mmol/L (137-145); Total Protein 7.4 g/dL (6.3-8.2)
[2023-03-11 10:42] LABS: Creatinine Urine Random 95.5 mg/dL
[2023-03-11 10:45] LABS: Microalbumin Urine Random < 0.6 mg/dL (0-1.6)
[2023-03-12 05:54] LABS: x Labcorp Estim. Avg Glu (eAG) 154 mg/dL (.)
== END ==
PROVIDERS: Family Provider Family Medicine; PCP Family Medicine; Referring Provider Family Medicine; Visit Provider Family Medicine
DX: Z12.31 Encounter for screening mammogram for malignant neoplasm of breast (principal); E11.9 Type 2 diabetes mellitus without complications; E78.2 Mixed hyperlipidemia; I10 Essential (primary) hypertension
CPT/HCPCS: 36415; 77063; 77067; 80053; 82043; 82570; 83036; 85025

== ENCOUNTER → 2023-06-29 15:07 | Outpatient (CLI) | payer MEDICARE, SELFPAY ==
--- NOTE | 2023-06-29 15:08 | DI.RAD.S_ITS ---
PROCEDURE: XR CHEST 2V INDICATIONS: Dyspnea TECHNIQUE: 2 views of the chest were acquired. COMPARISON: [facility], , CHEST 2 VIEW, 04/18/2015, 9:43. FINDINGS: Surgical changes and devices: Cholecystectomy clips. Lungs and pleura: Lungs are clear. No pleural effusions or pneumothorax. Mediastinum: Mediastinal contours are normal. Heart size is normal. Bones and chest wall: No suspicious bony abnormalities. Soft tissues appear unremarkable. IMPRESSION: No source for dyspnea identified radiographically. Dictated by: Calvin Vegas [facility] Interpreted: Joe George MD on 06/29/2023 at 15:29 Transcribed by: FLAQUITA on 06/29/2023 at 15:30 Approved by: Joe George M.D. on 06/30/2023 at 7:07
== END ==
PROVIDERS: Family Provider Family Medicine; PCP Family Medicine; Referring Provider Registered Nurse Diabetes Educator; Visit Provider Registered Nurse Diabetes Educator
DX: R06.09 Other forms of dyspnea (principal)
CPT/HCPCS: 71046

== ENCOUNTER → 2023-07-07 08:11 | Outpatient (CLI) | payer MEDICARE, SELFPAY | PROVIDERS: Family Provider Family Medicine; PCP Family Medicine; Referring Provider Family Medicine; Visit Provider Family Medicine | DX: R06.09 Other forms of dyspnea (principal); J98.8 Other specified respiratory disorders | CPT/HCPCS: 94060; 94726; 94729 ==

== ENCOUNTER → 2023-07-09 09:07 | Outpatient (CLI) | payer MEDICARE, SELFPAY ==
--- NOTE | 2023-07-09 09:08 | DI.ECHO.S_ITS ---
[facility] +---------+ : : [address] : [address] : : : : [address] : : : : Phone: [phone]+ Echocardiogram Report + + :Name: AMIE LUTZ Study Date: 07/09/2023 Height: 65 in : :[facility] ReadingLocation: Weight: 180 lb : : Gender: Female BSA: 1.9 m2 : :: 1945 Age: 78 yrs BP: 153/76 mmHg: :Reason For Study: Dyspnea on Exertion : :Ordering Physician: NEREIDA, : :ALMA Performed By: Cassandra Torrez : :Referring: ALMA PADRON : + + Interpretation Summary The ejection fraction is estimated to be 60-65%. Diastolic parameters suggest probable normal left ventricular diastolic function and normal filling pressures. The right ventricle is normal in size and function. There is mild mitral regurgitation. There is trace aortic regurgitation. There is mild to moderate tricuspid regurgitation. The right ventricular systolic pressure is estimated to be at least 30 mmHg based on an estimated right atrial pressure of 3 mm Hg. Procedure: A two-dimensional transthoracic echocardiogram with color flow and Doppler was performed. The study quality was technically adequate. The patient had an echocardiogram, but there is no comparison study available. The patient was in normal sinus rhythm during the exam. Left Ventricle: The left ventricle is normal in size. The ejection fraction is estimated to be 60-65%. Diastolic parameters suggest probable normal left ventricular diastolic function and normal filling pressures. Right Ventricle: The right ventricle is normal in size and function. Atria: Borderline left atrial enlargement. Right atrial size is normal. The atrial septum is aneurysmal. There is no Doppler evidence for an interatrial shunt. Mitral Valve: The mitral valve is normal. There is mild mitral annular calcification. There is no mitral valve stenosis. There is mild mitral regurgitation. Aortic Valve: The aortic valve is trileaflet. There is no aortic valve stenosis. There is trace aortic regurgitation. Tricuspid Valve: The tricuspid valve is normal. There is no tricuspid stenosis. There is mild to moderate tricuspid regurgitation. The right ventricular systolic pressure is estimated to be at least 30 mmHg based on an estimated right atrial pressure of 3 mm Hg. Pulmonic Valve: The pulmonic valve is not well visualized. There is no pulmonic valvular stenosis. There is trace pulmonic regurgitation. Great Vessels: The aortic root is normal size. The ascending aorta is normal in size. The pulmonary artery is normal size. The IVC is of normal diameter and collapses greater than 50% with a sniff. This suggests a low right atrial pressure of 3 mm Hg. Pericardium/ Pleura There is no pericardial effusion. There is no pleural effusion. MMode/2D Measurements & Calculations LVIDd: 4.3 cm LVOT diam: 1.9 cm LVIDs: 2.6 cm Ao root diam: 3.0 cm FS: 39.5 % asc Aorta Diam: 2.8 cm IVSd: 0.80 cm LVPWd: 0.90 cm LV walter. diameter/BSA (cm/m^2): 2.3 LV sys. diameter/BSA (cm/m^2): 1.4 LA A2 area: 21.5 cm2 RA long axis: 4.6 cm LA A4 area: 18.8 cm2 RA area: 13.1 cm2 LA length (vol): 5.4 cm RA vol: 31.8 ml LA vol: 63.4 ml RA : 16.8 ml/m2 LA vol index: 33.5 ml/m2 RVD1 (basal): 3.5 cm LVLs ap4: 5.7 cm LVLd ap2: 7.2 cm TAPSE_phl: 2.0 cm LVLs ap2: 6.1 cm Doppler Measurements & Calculations Ao V2 max: 126.3 cm/sec LVOT Max Saad: 93.2 cm/sec Ao V2 mean: 87.6 cm/sec LV V1 max P.5 mmHg Ao max P.0 mmHg LV V1 VTI: 19.7 cm Ao mean P.5 mmHg RALPH(I,D): 2.1 cm2 Ao V2 VTI: 27.1 cm RALPH(V,D): 2.1 cm2 sev ratio: 0.73 RALPH indexed to BSA (cm^2/m^2): 1.1 MV E max saad: 57.2 cm/sec TR max saad: 229.5 cm/sec MV A max saad: 79.5 cm/sec TR max P.4 mmHg MV E/A: 0.72 PA V2 max: 112.0 cm/sec Med Peak E' Saad: 8.0 cm/sec PA V2 mean: 74.9 cm/sec E/E' med: 7.1 PA mean P.0 mmHg Lat Peak E' Saad: 9.1 cm/sec PA pr(Accel): 36.3 mmHg E/E' lat: 6.3 E/e' average: 6.7 MV dec time: 0.22 sec SV(LVOT): 55.7 ml AV VR_phl: 0.74 RALPH(VTI)/BSA_phl: 1.1 Reading Physician:05:00 PM
== END ==
PROVIDERS: Family Provider Family Medicine; PCP Family Medicine; Referring Provider Registered Nurse Diabetes Educator; Visit Provider Registered Nurse Diabetes Educator
DX: R06.09 Other forms of dyspnea (principal); I35.1 Nonrheumatic aortic (valve) insufficiency; I34.0 Nonrheumatic mitral (valve) insufficiency; I07.1 Rheumatic tricuspid insufficiency
CPT/HCPCS: 93306

== ENCOUNTER → 2023-07-14 13:30 | Outpatient (CLI) | payer MEDICARE, SELFPAY | PROVIDERS: Family Provider Family Medicine; PCP Family Medicine; Referring Provider Registered Nurse Diabetes Educator; Visit Provider Registered Nurse Diabetes Educator | DX: R06.09 Other forms of dyspnea (principal) | CPT/HCPCS: 93242 ==

== ENCOUNTER → 2023-07-29 15:05 | Outpatient (CLI) | payer OTHER, SELFPAY ==
--- NOTE | 2023-07-29 15:05 | DI.NM.S_ITS ---
PROCEDURE: NM EXERCISE TREADMILL NON NUC COMPARISON: None. INDICATIONS: Other forms of dyspnea FINDINGS: The patient exercised for 2 minutes and 31 seconds reaching 97% of maximum predicted heart rate. Severely reduced exercise capacity (ANTHONY +49%) and study stopped due to shortness of breath. No angina, no ectopy, and no ST changes during exercise or recovery. IMPRESSION: Low risk, normal treadmill ECG only stress test from inducible ischemia standpoint. Severely reduced exercise tolerance (ANTHONY +49%). Dictated by: Bravo Gaming MD on 07/30/2023 at 17:05 Approved by: Bravo Gaming MD on 07/30/2023 at 17:07
== END ==
PROVIDERS: Family Provider Family Medicine; PCP Family Medicine; Referring Provider Registered Nurse Diabetes Educator; Visit Provider Registered Nurse Diabetes Educator
DX: R06.09 Other forms of dyspnea (principal)
CPT/HCPCS: 93017

== ENCOUNTER → 2023-09-22 09:11 | Outpatient (CLI) | payer OTHER, SELFPAY ==
[2023-09-22 10:04] LABS: Add Manual Diff / Slide Review NO; Basophils Absolute Auto 0 /uL (0-100); Basophils Percent Auto 0.6 % (0-2); Eosinophils Absolute Auto 200 /uL (0-450); Eosinophils Percent Auto 3.2 % (2-4); Hematocrit 37.8 % (36-46); Hemoglobin 12.9 g/dL (12.0-16.0); Lymphocytes Absolute Auto 3100 /uL (1100-4500); Mean Corpuscular HGB Conc 34.1 % (30-36); Mean Corpuscular Hemoglobin 31.8 PG (26-34); Mean Corpuscular Volume 93.3 fL (80-100); Monocytes Absolute Auto 500 /uL (0-900); Monocytes Percent Auto 7.3 % (3-14); Neutrophils Absolute Auto 3300 /uL (1500-7000); Neutrophils Percent Auto 45.9 % (50-75); Platelet Count 219 X10^3/uL (150-400); Red Blood Cell Count 4.05 X10^6/uL (4.0-5.2); Red Cell Distribution Width 13.3 % (11.6-14.8); White Blood Cell Count 7.2 X10^3/uL (4.5-11.0)
[2023-09-22 10:19] LABS: Hemoglobin A1C% w Est Avg Glu 7.8 % (4.0-6.0)
[2023-09-22 10:29] LABS: BUN Creatinine Ratio 25.7 (6-22); Blood Urea Nitrogen 19 mg/dL (7-17); Calcium 10.5 mg/dL (8.4-10.2); Carbon Dioxide 28 mmol/L (22-32); Chloride 100 mmol/L (98-107); Estimated Glomerular Filt Rate > 60 mL/min (>60); Glucose 105 mg/dL (80-110); HEMOLYSIS < 15 (0-50); Potassium 3.5 mmol/L (3.4-5.1); Sodium 136 mmol/L (137-145)
[2023-09-22 11:01] LABS: Appearance Urine UA SL CLOUDY; Color Urine UA Yellow; pH Urine UA 6.5 (4.5-8.0)
[2023-09-22 11:02] LABS: Bacteria Urine Many (>30); Bilirubin Urine UA Negative (NEGATIVE); Culture Indicated Urine Specimen Cultured; Glucose Urine UA NEGATIVE (Negative); Ketones Urine UA NEGATIVE (NEGATIVE); Leukocyte Esterase Urine UA 2+ (NEGATIVE); Nitrite Urine UA POSITIVE (Negative); Occult Blood Urine UA Negative (Negative); Protein Urine UA Negative (Negative); RBC Urine None Seen (0-5/HPF); Squamous Epithelial Cell Urine >30 /HPF (0-5/HPF); Urobilinogen Urine UA 0.2 E.U./dL (0.2); WBC Urine 30-100/HPF (0-5/HPF)
== END ==
PROVIDERS: Family Provider Family Medicine; PCP Family Medicine; Referring Provider Orthopaedic Surgery; Visit Provider Orthopaedic Surgery
DX: Z01.818 Encounter for other preprocedural examination (principal); Z01.812 Encounter for preprocedural laboratory examination; R73.9 Hyperglycemia, unspecified; N39.0 Urinary tract infection, site not specified; R06.02 Shortness of breath; J45.40 Moderate persistent asthma, uncomplicated
CPT/HCPCS: 36415; 80048; 81001; 83036; 85025; 87077; 87086; 87186; 93005; 93010; 99214

== ENCOUNTER → 2024-02-24 08:05 | Outpatient (CLI) | payer MEDICARE, SELFPAY ==
--- NOTE | 2024-02-24 08:09 | DI.RAD.S_ITS ---
PROCEDURE: FL UPPER GI SERIES INDICATIONS: eval reflux w/ stricture COMPARISON: None. FINDINGS: KUB: Preprocedural brick siding applicator film demonstrates a normal bowel gas pattern. No suspicious abdominal calcifications. Visualized solid organ contours appear normal. Bony structures appear unremarkable. Esophagus: Esophageal mucosa is normal on air-contrast views. On single-contrast views, there is normal esophageal peristalsis. No strictures, extrinsic mass effects, or diverticula. Moderate hiatal hernia. Elicited gastroesophageal reflux is seen into the mid to upper esophagus. There is normal transit of a calibrated barium tablet through the esophagus. Stomach: The stomach is normally distensible, with normal rugal fold thickness. No mucosal masses or ulcers. Pylorus and duodenal bulb appear normal in morphology. Duodenal folds are normal in thickness as well. IMPRESSION: 1. Moderate hiatal hernia. 2. Elicited gastroesophageal reflux into the mid to upper esophagus. Approved by: Bobby Bautista M.D. on 02/24/2024 at 13:02
[2024-02-24 09:56] LABS: Add Manual Diff / Slide Review NO; Basophils Absolute Auto 0 /uL (0-100); Basophils Percent Auto 0.5 % (0-2); Eosinophils Absolute Auto 300 /uL (0-450); Eosinophils Percent Auto 5.5 % (2-4); Hematocrit 35.1 % (36-46); Hemoglobin 11.9 g/dL (12.0-16.0); Lymphocytes Absolute Auto 3100 /uL (1100-4500); Lymphocytes Percent Auto 49.5 % (25-40); Mean Corpuscular HGB Conc 33.8 % (30-36); Mean Corpuscular Hemoglobin 32.3 PG (26-34); Mean Corpuscular Volume 95.5 fL (80-100); Monocytes Absolute Auto 600 /uL (0-900); Neutrophils Absolute Auto 2200 /uL (1500-7000); Neutrophils Percent Auto 34.5 % (50-75); Platelet Count 264 X10^3/uL (150-400); Red Blood Cell Count 3.68 X10^6/uL (4.0-5.2); Red Cell Distribution Width 14.8 % (11.6-14.8); White Blood Cell Count 6.3 X10^3/uL (4.5-11.0)
[2024-02-24 10:19] LABS: Carbon Dioxide 25 mmol/L (22-32); Chloride 103 mmol/L (98-107); HEMOLYSIS < 15 (0-50); Potassium 3.9 mmol/L (3.4-5.1); Sodium 139 mmol/L (137-145)
== END ==
PROVIDERS: Family Provider Family Medicine; PCP Family Medicine; Referring Provider Orthopaedic Surgery; Visit Provider Orthopaedic Surgery
DX: K21.9 Gastro-esophageal reflux disease without esophagitis (principal); Z01.812 Encounter for preprocedural laboratory examination; K22.2 Esophageal obstruction; Z01.818 Encounter for other preprocedural examination; K44.9 Diaphragmatic hernia without obstruction or gangrene
CPT/HCPCS: 36415; 74240; 80051; 85025

== ENCOUNTER 2024-02-28 12:37 | Emergency (ER) | payer MEDICARE, SELFPAY ==
[2024-02-28 12:54] VITALS: BP 146/97; PULSE 89; RESP 18; TEMP 36.7; O2SAT 98; BMI 28.3
--- NOTE | 2024-02-28 13:04 | DI.RAD.S_ITS ---
PROCEDURE: XR KNEE RT 3V INDICATIONS: Fall 5/ increasing pain bearing weight. TECHNIQUE: 3 views of the knee were acquired. COMPARISON: [facility], CR, XR KNEE LT 3V, 05/22/2021, 11:38. FINDINGS: Bones: No fractures or dislocations. No suspicious bony lesions. Chondrocalcinosis. Moderate tricompartmental joint space narrowing and periarticular osteophytosis. Soft tissues: No joint effusion. No suspicious soft tissue calcifications. IMPRESSION: No acute bony abnormality or significant effusion. Moderate tricompartmental osteoarthrosis. Chondrocalcinosis. Approved by: Maryuri Howard M.D.,Ph.D. on 02/28/2024 at 13:56
--- NOTE | 2024-02-28 13:04 | DI.RAD.S_ITS ---
PROCEDURE: XR HIP W PEL IF DONE RT 2V INDICATIONS: Fall 5/ increasing pain bearing weight. TECHNIQUE: AP pelvis with lateral view(s) of the right hip(s). COMPARISON: [facility], , HIP 2V RIGHT, 08/14/2008, 13:53. FINDINGS: Bones: No fractures or dislocations. Pelvic ring appears intact. No suspicious bony lesions. Soft tissues: The visualized bowel gas pattern is normal. No suspicious soft tissue calcifications. Oral contrast opacifies the colon. IMPRESSION: No acute bony abnormality. Approved by: Maryuri Howard M.D.,Ph.D. on 02/28/2024 at 13:47
--- NOTE | 2024-02-28 13:08 | DI.US.S_ITS ---
PROCEDURE: US PERIPH VENOUS LOW EXTREM RT INDICATIONS: decreased movement post fall 02/01 with pain in calf TECHNIQUE: Real-time imaging, as well as color and pulse Doppler interrogation, were performed of the lower extremity deep veins from the inguinal ligament to the popliteal fossa, with documentation of the visualized calf veins. COMPARISON: None. FINDINGS: The common femoral, femoral, popliteal, and the visualized calf veins are normally compressible, and free of intraluminal thrombus. Color and pulse Doppler demonstrate normal phasic intraluminal flow. There is normal augmentation response to distal compression maneuver. IMPRESSION: No findings of lower extremity deep venous thrombosis. Dictated by: Fab Casper M.D. on 02/28/2024 at 14:36 Approved by: Fab Casper M.D. on 02/28/2024 at 14:36
[2024-02-28] MEDS: ACETAMINOPHEN 325 MG TABLET 975 MG PO (13:12)
[2024-02-28] MEDS: ONDANSETRON 4 MG ODT SL (15:27)
[2024-02-28] MEDS: OXYCODONE/ACETAMINOPHEN 5/325 TABLET 1 TAB PO (15:27)
[2024-02-28 15:39] VITALS: BP 136/60; PULSE 87
--- NOTE | 2024-02-28 17:28 | ED.LOWEXIN ---
HPI - Extremity Injury (Lower) <Shauna Rinaldi PA-C - Last Filed: 02/28/24 17:33> General Chief Complaint: Extremity Injury, Lower Stated Complaint: sciatic nerve pain Time Seen by Provider: 02/28/24 17:17 Source: patient Mode of arrival: Wheelchair History of Present Illness HPI Narrative: 78-year-old female presents to the ED with right-sided hip and knee pain for 4 weeks. Patient states that she suffered a mechanical fall on 02/02/2024, following which she has had right-sided hip and knee pain. No numbness, tingling, weakness. No urinary hesitancy, urinary incontinence, bowel incontinence. Patient states that she feels the pain go down from the right side of her back down the right leg. Related Data Home Medications Medication Instructions Recorded Confirmed FOLIC ACID/VIT A/VIT B1/VIT 1 tab PO QDAY ##0 03/30/11 02/23/24 (#MULTIVITAMIN) VITAMIN B COMPLEX 1 cap PO QDAY ##0 03/30/11 02/23/24 cholecalciferol (vitamin D3) 25 25 mcg PO DAILY 05/29/21 02/23/24 mcg (1,000 unit) capsule pen needle, diabetic 32 gauge x #1,200 ea 06/29/23 02/23/24 (TechLITE Pen Needle) Previous Rx's Medication Instructions Recorded Disabled Parking Permit #1 ea 04/16/20 blood sugar diagnostic (Blood #400 ea 04/03/22 Glucose Test strips) sumatriptan succinate 50 mg tablet 50 mg PO PRN #9 tabs 04/03/22 (Imitrex) lancets 30 gauge (OneTouch Delica See Rx Instructions .Route 06/05/22 Plus Lancet) .COMPLEX #400 ea amlodipine 10 mg tablet 10 mg PO QDAY #90 tabs 04/02/23 atorvastatin 10 mg tablet (Lipitor) 10 mg PO HS #90 tabs 04/02/23 hydrochlorothiazide 25 mg tablet 25 mg PO QDAY #90 tabs 04/02/23 potassium chloride 10 mEq 10 meq PO DAILY #90 caps 04/02/23 capsule,extended release [place] #100 ea 04/14/23 fluticasone 250 mcg-salmeterol 50 1 inh inhalation BID #180 ea 09/22/23 mcg/dose blistr powdr for inhalation insulin glargine 100 unit/mL (3 See Rx Instructions .Route 09/23/23 mL) subcutaneous pen (Lantus .COMPLEX #15 mL Solostar U-100 Insulin) albuterol sulfate 90 mcg/actuation 2 puff PO Q4-6H PRN for wheezing 12/28/23 aerosol inhaler #8.5 grams losartan 50 mg tablet 50 mg PO BID #180 tabs 12/28/23 cyclobenzaprine 5 mg tablet 5 mg PO BEDTIME PRN muscle spasm 02/23/24 #14 tabs naproxen 500 mg tablet 500 mg PO Q12H PRN pain #30 tabs 02/23/24 oxycodone-acetaminophen 5 mg-325 1 tab PO Q4-6H PRN pain #10 tabs 02/28/24 mg tablet (Percocet) Allergies Allergy/AdvReac Type Severity Reaction Status Date / Time codeine [CODEINE] Allergy Severe NAUSEA AND Verified 02/23/24 13:48 VOMITING lisinopril [LISINOPRIL] AdvReac Mild COUGH Verified 02/23/24 13:48 Review of Systems <Shauna Rinaldi PA-C - Last Filed: 02/28/24 17:33> Constitutional Constitutional: Denies chills, Denies fatigue, Denies fever(s), Denies frequent falls, Denies lethargy and Denies weakness Eyes Eyes: Denies change in vision, Denies eye discharge, Denies irritation and Denies loss of vision ENT Ears, Nose, Mouth, and Throat: Denies change in voice, Denies dizziness, Denies neck pain, Denies sore throat and Denies throat swelling Cardiovascular Cardiovascular: Denies chest pain, Denies irregular heart rhythm, Denies lightheadedness, Denies palpitations, Denies dyspnea, Denies dyspnea on exertion and Denies orthopnea Respiratory Respiratory: Denies cough, Denies dyspnea, Denies dyspnea on exertion and Denies wheezing Gastrointestinal Gastrointestinal: Denies abdominal pain, Denies change in bowel habits, Denies diarrhea, Denies nausea and Denies vomiting Musculoskeletal Musculoskeletal: Denies neck pain and Denies numbness Comments: Right-sided hip and knee pain Integumentary/Breasts Skin/Breast: Denies pruritus, Denies erythema, Denies rash and Denies wounds Neurologic Neurologic: Denies behavioral changes, Denies confusion, Denies dizziness, Denies frequent falls, Denies loss of vision, Denies numbness and Denies weakness Psychiatric Psychiatric: Denies anxiety, Denies behavioral changes, Denies confusion, Denies depression, Denies homicidal ideation and Denies suicidal ideation Endocrine Endocrine: Denies fatigue, Denies flushing and Denies palpitations Hematologic/Lymphatic Hematologic/Lymphatic: Denies easy bruising Allergic/Immunologic Allergic/Immunologic: Denies urticaria, Denies throat swelling and Denies wheezing Patient History <Shauna Rinaldi PA-C - Last Filed: 02/28/24 17:33> Medical History (Updated 02/28/24 @ 17:27 by Shauna Rinaldi PA-C) group home (current) use of insulin Preventative health care GERD (gastroesophageal reflux disease) History of migraine headaches Actinic keratosis Medication side effect Greater trochanteric bursitis of both hips Iliotibial band tendinitis of both sides Somatic dysfunction of lower extremity Bilateral knee pain Medicare annual wellness visit, subsequent Vitamin D deficiency History of pneumonia (~2013) Carpal tunnel syndrome (~2013) Tikk-Fgmd-Zkqn syndrome (Unknown) Pyelonephritis (~2013) Hx of myocardial infarction (~2013) Hyperlipemia (Unknown) Hypertension (Unknown) Diabetes (Unknown) Surgical History History of back surgery (Unknown) Hx of knee surgery (Unknown) Hx of hysterectomy (Unknown) Hx of cholecystectomy (Unknown) 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) Family History Child Age: 56 Kkgc-Cqtd-Bfas syndrome Father Alzheimer disease Mother Lung cancer Social History Smoking Status: Never smoker second hand exposure: No alcohol intake: current substance use type: does not use Smoking Status: Never smoker Substance Use Type: does not use Exam <Shauna Rinaldi PA-C - Last Filed: 02/28/24 17:33> Narrative Exam Narrative: Const General:?cooperative, healthy appearing and comfortable [facility] Head:?normal to inspection Ears:?hearing grossly normal bilaterally Nose:?external nose normal Face and sinus:?normal facial exam and sinuses nontender Mouth:?oral mucosae normal Throat:?posterior oropharynx normal Eyes General:?appearance normal, both eyes and all related structures Neck Neck:?normal visual inspection and no lymphadenopathy noted Resp Effort & Inspection:?normal respiratory effort Auscultation:?clear to auscultation bilaterally Cardio Rate:?regular rate Rhythm:?regular rhythm Musculoskeletal No midline tenderness to palpation. No paraspinal tenderness to palpation. There is no bony tenderness with palpation of the hip or knee. Strength and sensation is intact. There is full range of motion. No bruising. Patient is able to walk normally. Patient is neurovascularly intact. Neuro General:?patient alert, patient awake and patient oriented x3 Initial Vital Signs Initial Vital Signs: Vital Signs Temperature 98.1 F 02/28/24 12:54 Pulse Rate 89 02/28/24 12:54 Respiratory Rate 18 02/28/24 12:54 Blood Pressure 146/97 H 02/28/24 12:54 Pulse Oximetry 98 02/28/24 12:54 Oxygen Delivery Method Room Air 02/28/24 12:54 <Cruzito Valente MD - Last Filed: 02/28/24 19:09> Initial Vital Signs Initial Vital Signs: Vital Signs Temperature 98.1 F 02/28/24 12:54 Pulse Rate 89 02/28/24 12:54 Respiratory Rate 18 02/28/24 12:54 Blood Pressure 146/97 H 02/28/24 12:54 Pulse Oximetry 98 02/28/24 12:54 Oxygen Delivery Method Room Air 02/28/24 12:54 Course <Shauna Rinaldi PA-C - Last Filed: 02/28/24 17:33> Orders Ordered: ED Orders 02/28/24 13:04 XR hip w pel if done RT 2V Stat XR knee RT 3V Stat 02/28/24 13:08 US periph venous low extrem rt Stat Discontinued Medications Acetaminophen (Acetaminophen 325 Mg Tablet) 975 mg PO NOW ONE Stop: 02/28/24 13:11 Last Admin: 02/28/24 13:12 Dose: 975 mg Documented By: RB Ondansetron HCl (Ondansetron 4 Mg Odt) 4 mg SL NOW ONE Stop: 02/28/24 15:24 Last Admin: 02/28/24 15:27 Dose: 4 mg Documented By: SPF Oxycodone/Acetaminophen (Oxycodone/Acetaminophen 5/325 Tablet) 1 tab PO NOW ONE Stop: 02/28/24 15:17 Last Admin: 02/28/24 15:27 Dose: 1 tab Documented By: SPF Vital Signs Vital signs: Vital Signs - 8 hr 02/28/24 12:54 02/28/24 15:39 02/28/24 17:50 Temperature 98.1 F Pulse Rate 89 87 89 Respiratory Rate 18 14 Blood Pressure 146/97 H 136/60 131/59 L Pulse Oximetry 98 Oxygen Delivery Method Room Air 02/28/24 17:52 Temperature Pulse Rate Respiratory Rate Blood Pressure Pulse Oximetry 97 Oxygen Delivery Method Room Air <Cruzito Valente MD - Last Filed: 02/28/24 19:09> Orders Ordered: ED Orders 02/28/24 13:04 XR hip w pel if done RT 2V Stat XR knee RT 3V Stat 02/28/24 13:08 US periph venous low extrem rt Stat Discontinued Medications Acetaminophen (Acetaminophen 325 Mg Tablet) 975 mg PO NOW ONE Stop: 02/28/24 13:11 Last Admin: 02/28/24 13:12 Dose: 975 mg Documented By: RB Ondansetron HCl (Ondansetron 4 Mg Odt) 4 mg SL NOW ONE Stop: 02/28/24 15:24 Last Admin: 02/28/24 15:27 Dose: 4 mg Documented By: SPF Oxycodone/Acetaminophen (Oxycodone/Acetaminophen 5/325 Tablet) 1 tab PO NOW ONE Stop: 02/28/24 15:17 Last Admin: 02/28/24 15:27 Dose: 1 tab Documented By: SPF Vital Signs Vital signs: Vital Signs - 8 hr 02/28/24 12:54 02/28/24 15:39 02/28/24 17:50 Temperature 98.1 F Pulse Rate 89 87 89 Respiratory Rate 18 14 Blood Pressure 146/97 H 136/60 131/59 L Pulse Oximetry 98 Oxygen Delivery Method Room Air 02/28/24 17:52 Temperature Pulse Rate Respiratory Rate Blood Pressure Pulse Oximetry 97 Oxygen Delivery Method Room Air MDM - Extremity Injury (Lower) <Shauna Rinaldi PA-C - Last Filed: 02/28/24 17:33> MDM Narrative Medical decision making narrative: 78-year-old female presents to the ED with right-sided hip and knee pain for 4 weeks. Concern for fracture/dislocation versus musculoskeletal sprain/strain versus DVT versus other. X-rays were obtained which did not show acute findings. Ultrasound of the right lower extremity was negative for DVTs. Patient's symptoms improved with Percocet. Prescribed pain medications for a short period of time. Patient is able to walk normally. Recommend follow-up with PCP as soon as possible for further evaluation. ED return precautions discussed with patient. Patient verbalized understanding. Medical records reviewed: Yes Discharge Plan Departure Patient Disposition: Home Clinical Impression: Sciatica Qualifiers: Laterality: right Qualified Code(s): M54.31 - Sciatica, right side Instructions: DI for Sciatica Activity Restrictions/Additional Instructions: You were evaluated in the ED today for right-sided hip and knee pain. Your x-rays were normal. Your symptoms are likely due to a musculoskeletal sprain/strain/contusion. You are being prescribed some pain medications for the next few days until you are able to see your PCP. Please follow-up with your PCP as soon as possible. Return to the ED if you have worsening symptoms, numbness, tingling, weakness, urinary difficulties. Prescriptions: New oxycodone-acetaminophen [Percocet] 5-325 mg tablet 1 tab PO Q4-6H PRN (Reason: pain) Qty: 10 0RF No Action VITAMIN B COMPLEX 1 cap PO QDAY Qty: 0 FOLIC ACID/VIT A/VIT B1/VIT (#MULTIVITAMIN) 1 tab PO QDAY Qty: 0 (DME) Blood Glucose Test Strip See Rx Instructions .ROUTE .MEDSUPPLY Qty: 400 3RF Rx Instructions: Use to test blood glucose FOUR TIMES DAILY. lancets [OneTouch Delica Plus Lancet] 30 gauge misc See Rx Instructions .ROUTE .COMPLEX Qty: 400 2RF Dose Instruction: USE TO TEST BLOOD SUGAR FOUR TIMES DAILY Rx Instructions: USE TO TEST BLOOD SUGAR FOUR TIMES DAILY atorvastatin [Lipitor] 10 mg tablet 10 mg PO HS Qty: 90 3RF potassium chloride 10 mEq capsule, extended release 10 meq PO DAILY Qty: 90 3RF hydrochlorothiazide 25 mg tablet 25 mg PO QDAY Qty: 90 3RF amlodipine 10 mg tablet 10 mg PO QDAY Qty: 90 3RF fluticasone propion-salmeterol 250-50 mcg/dose blister with device 1 inh inhalation BID Qty: 180 3RF Rx Instructions: rinse mouth with water, gargle and spit after each use Lantus Solostar U-100 Insulin 100 unit/mL (3 mL) insulin pen See Rx Instructions .ROUTE .COMPLEX Qty: 15 7RF Dose Instruction: ADMINISTER 25 UNITS UNDER THE SKIN EVERY EVENING Rx Instructions: ADMINISTER 30 UNITS UNDER THE SKIN EVERY EVENING albuterol sulfate 90 mcg/actuation HFA aerosol inhaler 2 puff PO Q4-6H PRN (Reason: for wheezing) Qty: 8.5 0RF Rx Instructions: Need appointment for further refills 12/28/23 losartan 50 mg tablet 50 mg PO BID Qty: 180 0RF Rx Instructions: need appointment for further refills 12/28/23 (DME) Disabled Parking Permit Qty: 1 0RF Rx Instructions: As directed cholecalciferol (vitamin D3) 25 mcg (1,000 unit) capsule 25 mcg PO DAILY (DME) [place] 0 .Route .MEDSUPPLY Qty: 100 3RF Dose Instruction: As directed Rx Instructions: Use to inject insulin daily. generic pen needles. [id number] () GRN sumatriptan succinate [Imitrex] 50 mg tablet 50 mg PO PRN Qty: 9 2RF (DME) pen needle, diabetic [TechLITE Pen Needle] 32 gauge x 5/32 needle See Rx Instructions .ROUTE DAILY Qty: 1200 Rx Instructions: As directed naproxen 500 mg tablet 500 mg PO Q12H PRN (Reason: pain) Qty: 30 0RF cyclobenzaprine 5 mg tablet 5 mg PO BEDTIME PRN (Reason: muscle spasm) Qty: 14 0RF Referrals: Chandler Roman, DO [Primary Care Provider] - Stand Alone Forms: Patient Portal/API ED Sign-out <Cruzito Valente MD - Last Filed: 02/28/24 19:09> Cosign ED Attending Stormy Attestation: I was immediately available in the department for consultation. I reviewed the documentation. Supervised by Cruzito Valente MD.
[2024-02-28 17:50] VITALS: BP 131/59; PULSE 89; RESP 14
[2024-02-28 17:52] VITALS: O2SAT 97
== END 2024-02-28 17:52 | disposition home or self-care (01) ==
PROVIDERS: Emergency Provider Student in an Organized Health Care Education/Training Program; Family Provider Family Medicine; PCP Family Medicine
DX: M54.31 Sciatica, right side (principal); M25.561 Pain in right knee; M25.551 Pain in right hip
CPT/HCPCS: 73502; 73562; 93971; 99283; 99284

== ENCOUNTER → 2024-03-09 09:18 | Outpatient (CLI) | payer MEDICARE, SELFPAY ==
[2024-03-09 10:09] LABS: Hemoglobin A1C% w Est Avg Glu 6.3 % (4.0-6.0)
== END ==
LOC: LAB 09:19
PROVIDERS: Family Provider Family Medicine; PCP Family Medicine; Referring Provider Family Medicine; Visit Provider Family Medicine
DX: E11.9 Type 2 diabetes mellitus without complications (principal)
CPT/HCPCS: 36415; 83036

== ENCOUNTER → 2024-04-04 14:35 | Outpatient (CLI) | payer MEDICARE, SELFPAY ==
--- NOTE | 2024-04-04 14:37 | DI.RAD.S_ITS ---
PROCEDURE: XR LUMBAR SPINE 2-3V INDICATIONS: Persistent lower back and sacral pain x2 months TECHNIQUE: 3 views of the lumbar spine were acquired. COMPARISON: [facility], , -SPINE 2-3 VIEWS, 11/09/2013, 10:47. FINDINGS: Bones: 5 fap-wce-[id number] vertebrae are present. There is normal bony alignment. No vertebral body compression fractures. No suspicious bony lesions. Severe disc space narrowing is present L4-5 with overall moderate degenerative disc space narrowing throughout the lumbar spine. There is moderate to severe foraminal narrowing at L5-S1. Overall interval progression is present since 2013. Scattered anterior osteophytes are present. Soft tissues: Overlying bowel gas pattern is normal. No suspicious soft tissue calcifications. IMPRESSION: Progressive degenerative changes most severe at L5-S1. Dictated by: Gisselle Lazar M.D. on 04/04/2024 at 16:06 Approved by: Gisselle Lazar M.D. on 04/04/2024 at 16:07
--- NOTE | 2024-04-04 14:37 | DI.RAD.S_ITS ---
PROCEDURE: XR PELVIS 1-2V INDICATIONS: Persistent lower back and pelvic pain x2 months TECHNIQUE: 2 view(s) of the pelvis acquired. COMPARISON: None. FINDINGS: Bones: No fractures or dislocations. No suspicious bony lesions. Moderate bilateral degenerative hip joint space narrowing. Degenerative changes are present within the lower lumbar spine. Soft tissues: Visualized bowel gas pattern is normal. No suspicious soft tissue calcifications. 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 Dictated by: Gisselle Lazar M.D. on 04/04/2024 at 16:03 Approved by: Gisselle Lazar M.D. on 04/04/2024 at 16:06
== END ==
PROVIDERS: Family Provider Family Medicine; PCP Family Medicine; Referring Provider Family Medicine; Visit Provider Family Medicine
DX: M48.07 Spinal stenosis, lumbosacral region (principal); M54.50 Low back pain, unspecified
CPT/HCPCS: 72100; 72170

== ENCOUNTER 2024-04-19 22:38 | Inpatient (IN) | payer MEDICARE, SELFPAY ==
[2024-04-19 23:09] VITALS: BP 132/69; PULSE 88; RESP 20; TEMP 36.9; O2SAT 96; BMI 30.7
--- NOTE | 2024-04-19 23:20 | EKG_ITS ---
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
--- NOTE | 2024-04-19 23:20 | ED.ABDPAIN ---
HPI - Abdominal Pain General Chief Complaint: Abdominal Pain Stated Complaint: knee px, abd px, headache Time Seen by Provider: 04/19/24 22:50 Source: patient and family Mode of arrival: Wheelchair History of Present Illness HPI narrative: 78-year-old female with history of hypertension, insulin-dependent diabetes, chronic pain presents by private vehicle from home for abdominal pain, knee pain, altered mental status. History obtained from at bedside, however both and are poor historians and exact timeline of symptoms is confusing. Symptoms have been ongoing anywhere between 1-3 weeks. Patient has chronic knee pain and states that she was scheduled to undergo knee replacement surgery next month with Dr. Wilson. Patient has been taking her home pain medications without significant relief. Has been states that patient has not had very much to eat or drink over the last several days because her pain is so intense. Tonight between all of the patient's various pains as well as confusion has been decided to bring patient in for evaluation. Patient is alternately crying or laughing. Points to her midepigastric region as source of most pain, but was unable to provide any additional significant history Related Data Home Medications Medication Instructions Recorded Confirmed FOLIC ACID/VIT A/VIT B1/VIT 1 tab PO QDAY ##0 03/30/11 04/04/24 (#MULTIVITAMIN) VITAMIN B COMPLEX 1 cap PO QDAY ##0 03/30/11 04/04/24 cholecalciferol (vitamin D3) 25 25 mcg PO DAILY 05/29/21 04/04/24 mcg (1,000 unit) capsule pen needle, diabetic 32 gauge x #1,200 ea 06/29/23 04/04/24 (TechLITE Pen Needle) hydrocodone 5 mg-acetaminophen 325 tab PO 03/23/24 04/04/24 mg tablet Previous Rx's Medication Instructions Recorded Disabled Parking Permit #1 ea 04/16/20 blood sugar diagnostic (Blood #400 ea 04/03/22 Glucose Test strips) sumatriptan succinate 50 mg tablet 50 mg PO PRN #9 tabs 04/03/22 (Imitrex) [place] #100 ea 04/14/23 insulin glargine 100 unit/mL (3 See Rx Instructions .Route 09/23/23 mL) subcutaneous pen (Lantus .COMPLEX #15 mL Solostar U-100 Insulin) albuterol sulfate 90 mcg/actuation 2 puff PO Q4-6H PRN for wheezing 12/28/23 aerosol inhaler #8.5 grams amlodipine 10 mg tablet 10 mg PO QDAY #90 tabs 03/22/24 atorvastatin 10 mg tablet (Lipitor) 10 mg PO HS #90 tabs 03/22/24 hydrochlorothiazide 25 mg tablet 25 mg PO QDAY #90 tabs 03/22/24 losartan 50 mg tablet 50 mg PO BID #180 tabs 03/22/24 potassium chloride 10 mEq 10 meq PO DAILY #90 caps 03/22/24 capsule,extended release meloxicam 15 mg tablet 7.5 mg (1/2 x 15 mg) PO BID #30 03/23/24 tabs piroxicam 10 mg capsule (Feldene) 10 mg PO DAILY #30 caps 04/04/24 tramadol 50 mg tablet 50 mg PO BID PRN pain #30 tabs 04/04/24 lancets 30 gauge (OneTouch Delica See Rx Instructions .Route 04/07/24 Plus Lancet) .COMPLEX #400 ea oxaprozin 300 mg capsule 300 mg PO BID #60 caps 04/10/24 Allergies Allergy/AdvReac Type Severity Reaction Status Date / Time codeine [CODEINE] Allergy Severe NAUSEA AND Verified 04/04/24 13:58 VOMITING lisinopril [LISINOPRIL] AdvReac Mild COUGH Verified 04/04/24 13:58 Patient History Medical History 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 Preventative health care GERD (gastroesophageal reflux disease) History of migraine headaches Actinic keratosis Medication side effect Greater trochanteric bursitis of both hips Iliotibial band tendinitis of both sides Somatic dysfunction of lower extremity Bilateral knee pain Medicare annual wellness visit, subsequent Vitamin D deficiency History of pneumonia (~2013) Carpal tunnel syndrome (~2013) Tslx-Hray-Ioyz syndrome (Unknown) Pyelonephritis (~2013) Hx of myocardial infarction (~2013) Hyperlipemia (Unknown) Hypertension (Unknown) Diabetes (Unknown) Surgical History History of back surgery (Unknown) Hx of knee surgery (Unknown) Hx of hysterectomy (Unknown) Hx of cholecystectomy (Unknown) 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) Family History Child Age: 56 Itly-Kust-Osvs syndrome Father Alzheimer disease Mother Lung cancer Social History Smoking Status: Never smoker second hand exposure: No alcohol intake: current substance use type: does not use Smoking Status: Never smoker Substance Use Type: does not use Exam Initial Vital Signs Initial Vital Signs: Vital Signs Temperature 98.5 F 04/19/24 23:09 Pulse Rate 88 04/19/24 23:09 Respiratory Rate 20 04/19/24 23:09 Blood Pressure 132/69 04/19/24 23:09 Pulse Oximetry 96 04/19/24 23:09 Oxygen Delivery Method Room Air 04/19/24 23:09 Const: Awake, alert to voice, appears chronically unwell Cardiac: regular rate, regular rhythm RESP: unlabored, clear bilaterally, no wheezing GI: Soft, minimal midepigastric tenderness to deep palpation MSK: Atraumatic, full range of motion, pulses equal Skin: Warm, Dry, intact, no rashes Neuro: AO x3, CN II-XII grossly intact, moves all extremities Course Orders Ordered: ED Orders 04/19/24 23:19 CT abdomen pelvis wo con Stat 04/19/24 23:20 CT head/brain wo con Stat Chest [XR chest 1V] Stat EKG-12 Lead Stat 04/19/24 23:27 BNP [NT-proBNP (BNP-Adult 18+)] Stat CBC Auto Diff [Complete Blood Count AUTO DIFF] Stat CMP [Comprehensive Metabolic Panel] Stat Lactate (Lactic Acid) Stat Lipase Stat MAG [Magnesium] Stat PT [Prothrombin Time INR] Stat Procalcitonin Stat 04/19/24 23:40 Ammonia (NH3) Stat 04/19/24 23:55 Respiratory Panel (Film Array) Stat 04/20/24 01:23 CMP [Comprehensive Metabolic Panel] Stat 04/20/24 01:37 ABG [Arterial Blood Gas] Stat 04/20/24 02:06 UA Complete [Urinalysis and Microscopic] Stat Urine Culture Stat Urine Drug Screen, Rapid Stat Acetaminophen (Acetaminophen 325 Mg Tablet) 650 mg PO Q6H PRN PRN Reason: Fever/Mild Pain (1-3) Albuterol (Albuterol 2.5 Mg/3 Ml Neb (Adult)) 2.5 mg INH [id number] PRN PRN Reason: Dyspnea Amlodipine Besylate (Amlodipine 5 Mg Tablet) 10 mg PO DAILY ASHLEY Atorvastatin Calcium (Atorvastatin 20 Mg Tablet) 10 mg PO BEDTIME ASHLEY Hydralazine HCl (Hydralazine 20 Mg/Ml Vial) 10 mg IV Q6HR PRN PRN Reason: SBP>= 160 or DBP >=110 Hydrochlorothiazide (Hydrochlorothiazide 25 Mg Tablet) 25 mg PO DAILY ASHLEY Sodium Chloride (Normal Saline 0.9%) 1,000 mls @ 125 mls/hr IV CONT ASHLEY POTASSIUM CHLORIDE IN WATER (Potassium Cl 10 Meq/100 Ml Bebe) 10 meq in 100 mls @ 100 mls/hr IV Q1H ASHLEY Stop: 04/20/24 04:59 Melatonin (Melatonin 3 Mg Tablet) 6 mg PO BEDTIME PRN PRN Reason: insomnia Multivitamins (Multivitamin 1 Tablet) 1 tab PO DAILY ASHLEY Naloxone HCl (Naloxone 0.4 Mg/Ml Vial) 0.2 mg IV Q2MIN PRN PRN Reason: Opiate Reversal Ondansetron HCl (Ondansetron 4 Mg/2 Ml Inj) 4 mg IV Q8HR PRN PRN Reason: Nausea And Vomiting Sennosides (Sennosides 8.6 Mg Tablet) 17.2 mg PO BEDTIME PRN PRN Reason: Constipation Vitamin D (Cholecalciferol (Vitamin D3) 1,000 Unit Tablet) 1,000 unit PO DAILY ASHLEY Discontinued Medications Albuterol (Albuterol Hfa Mdi 60 Puff/8 Gm Inhaler) 2 puff INH Q4-6H PRN PRN Reason: for wheezing Calcitonin [place] (Calcitonin,[place] 400 Units/2 Ml Mdv) 300 units IM NOW ONE Stop: 04/20/24 00:32 Last Admin: 04/20/24 00:41 Dose: 300 units Documented By: MARY Droperidol (Droperidol 5 Mg/2 Ml Vial) 2.5 mg IV NOW ONE Stop: 04/20/24 02:08 Sodium Chloride (Normal Saline 0.9%) 1,000 mls @ 1,000 mls/hr IV BOLUS ONE Stop: 04/20/24 00:16 Last Infusion: 04/20/24 00:33 Dose: Infused Documented By: Admin: 04/19/24 23:43 Dose: 1,000 mls/hr Documented By: CLAY Sodium Chloride (Normal Saline 0.9%) 1,000 mls @ 1,000 mls/hr IV BOLUS ONE Stop: 04/20/24 00:56 Last Infusion: 04/20/24 01:26 Dose: Infused Documented By: Admin: 04/20/24 00:34 Dose: 1,000 mls/hr Documented By: MARY Magnesium Sulfate (Magnesium Sulfate) 2 gm in 50 mls @ 25 mls/hr IV NOW ONE Stop: 04/20/24 02:16 Last Infusion: 04/20/24 02:35 Dose: Infused Documented By: CLAY Co-signed By: Admin: 04/20/24 00:37 Dose: 25 mls/hr Documented By: MARY Co-signed By: CLAY Ceftriaxone Sodium 1,000 mg/ (Sodium Chloride) 100 mls @ 200 mls/hr IV NOW ONE Stop: 04/20/24 02:25 Morphine Sulfate (Morphine 4 Mg/Ml Inj) 4 mg IV NOW ONE Stop: 04/19/24 23:18 Last Admin: 04/19/24 23:44 Dose: 4 mg Documented By: CLAY Vital Signs Vital signs: Vital Signs - 8 hr 04/19/24 23:09 04/19/24 23:52 04/19/24 23:59 Temperature 98.5 F Pulse Rate 88 77 78 Respiratory Rate 20 16 25 H Blood Pressure 132/69 Pulse Oximetry 96 Oxygen Delivery Method Room Air 04/19/24 23:59 04/20/24 00:00 04/20/24 00:00 Temperature Pulse Rate 80 Respiratory Rate 22 Blood Pressure 133/63 130/61 Pulse Oximetry Oxygen Delivery Method 04/20/24 00:30 04/20/24 00:30 04/20/24 01:00 Temperature Pulse Rate 78 88 Respiratory Rate 14 25 H Blood Pressure 136/63 Pulse Oximetry 99 99 Oxygen Delivery Method Room Air 04/20/24 01:01 04/20/24 01:01 04/20/24 01:30 Temperature Pulse Rate 79 93 H Respiratory Rate 19 20 Blood Pressure 133/58 L Pulse Oximetry 99 Oxygen Delivery Method Room Air 04/20/24 02:00 04/20/24 02:00 04/20/24 02:30 Temperature Pulse Rate 89 82 Respiratory Rate 15 16 Blood Pressure 135/62 Pulse Oximetry 98 93 Oxygen Delivery Method Room Air Room Air 04/20/24 02:30 Temperature Pulse Rate Respiratory Rate Blood Pressure 125/70 Pulse Oximetry Oxygen Delivery Method MDM - Abdominal Pain Lab Data 04/19/24 23:27 04/20/24 01:23 Labs: Lab Results 04/19/24 04/19/24 04/19/24 Range/Units 23:27 23:40 23:55 WBC 11.7 H (4.5-11.0) X10^3/uL RBC 3.89 L (4.0-5.2) X10^6/uL Hgb 12.4 (12.0-16.0) g/dL Hct 36.5 (36-46) % MCV 93.9 (80-100) fL MCH 31.8 (26-34) PG MCHC 33.9 (30-36) % RDW 13.5 (11.6-14.8) % Plt Count 205 (150-400) X10^3/uL Neut % (Auto) 64.4 (50-75) % Lymph % (Auto) 27.6 (25-40) % [place] % (Auto) 7.2 (3-14) % Eos % (Auto) 0.3 L (2-4) % Baso % (Auto) 0.5 (0-2) % Neut # (Auto) 7500 H (2352-9207) /uL Lymph # (Auto) 3200 (7662-6987) /uL [place] # (Auto) 800 (0-900) /uL Eos # (Auto) 0 (0-450) /uL Baso # (Auto) 100 (0-100) /uL PT 12.0 (9.4-12.5) SECONDS INR 1.0 (0.9-1.3) ABG Sample Site ABG pH (7.35-7.45) ABG pCO2 (35-45) mmHg ABG pO2 (80-100) mmHg ABG HCO3 (23-27) mmol/L ABG Total CO2 (23-27) mmol/L ABG O2 Saturation (95-100) % ABG Base Excess (-2-3) mmol/L O2 Delivery Device FiO2 Sodium 138 (137-145) mmol/L Potassium 3.6 (3.4-5.1) mmol/L Chloride 102 (98-107) mmol/L Carbon Dioxide 23 (22-32) mmol/L BUN 55 H (7-17) mg/dL Creatinine 1.56 H (0.52-1.04) mg/dL Estimated GFR 34 L (>60) mL/min BUN/Creatinine Ratio 35.3 H (6-22) Glucose 158 H (80-110) mg/dL Lactate 2.4 H (0.7-2.1) mmol/L Calcium 13.1 H* (8.4-10.2) mg/dL Magnesium 1.4 L (1.6-2.3) mg/dL Total Bilirubin 0.6 (0.2-1.3) mg/dL AST 25 (14-36) IU/L ALT 21 (<35) IU/L Alkaline Phosphatase 84 (38-126) U/L Ammonia < 9 L (9-30) umol/L NT-Pro-B Natriuret Pep 45 (<450) pg/mL Total Protein 8.8 H (6.3-8.2) g/dL Albumin 4.5 (3.5-5.0) g/dL Globulin 4.3 H (1.7-4.1) g/dL Albumin/Globulin Ratio 1.0 (1.0-2.8) Lipase 55 (23-300) U/L Procalcitonin 0.074 (<0.5) ng/mL Urine Color Urine Appearance Urine pH (4.5-8.0) Ur Specific [place] (1.000-1.035) Urine Protein (Negative) Urine Glucose (UA) (Negative) g/dL Urine Ketones (NEGATIVE) Urine Occult Blood (Negative) Urine Nitrate (Negative) Urine Bilirubin (NEGATIVE) Urine Urobilinogen (0.2) E.U./dL Ur Leukocyte Esterase (NEGATIVE) Urine RBC (0-5/HPF) Urine WBC (0-5/HPF) Ur Squamous Epith Cells (0-5/HPF) Ur Transition Epith Cell Ur Renal Epithelial Cell Calcium Oxalate Crystal Uric Acid Crystals Triple Phos Crystals Other Crystals Amorphous Sediment Urine Bacteria (None) Hyaline Casts Granular Casts RBC Casts WBC Casts Other Casts Urine Mucus Urine Trichomonas Urine Yeast Urine Sperm Ur Culture Indicated? Micro UA Comment Vol Urine Centrifuged U Opiates 300ng/mL cut (Negative) Ur Oxycodone Screen (Negative) Urine Methadone Screen (Negative) Ur Barbiturates Screen (Negative) U Tricyclic Antidepress (Negative) Ur Phencyclidine Scrn (Negative) Ur Amphetamines Screen (Negative) U Methamphetamines Scrn (Negative) Ur MDMA Scrn (Ecstasy) (Negative) U Benzodiazepines Scrn (Negative) Urine Cocaine Screen (Negative) U Marijuana (THC) Screen (Negative) Urine Specific [place] (Normal) Ur Creatinine (Normal) Chlamy pneumoniae PCR Not detected (Not Detect) Adenovirus (PCR) Not detected (Not Detect) B.parapertussis DNA PCR Not detected (Not Detecte) Coronavirus OC43 (PCR) Not detected (Not Detect) Coronavirus HKU1 (PCR) Not detected (Not Detect) Coronavirus 229E (PCR) Not detected (Not Detect) SARS-CoV-2 (PCR) Not detected (Not Detecte) Coronavirus NL63 (PCR) Not detected (Not Detect) Human Metapneumovir PCR Not detected (Not Detect) Influenza Type A (PCR) Not detected (Not Detect) Influenza Type B (PCR) Not detected (Not Detect) M. pneumoniae (PCR) Not detected (Not Detect) Parainfluenza 1 (PCR) Not detected (Not Detect) Parainfluenza 2 (PCR) Not detected (Not Detect) Parainfluenza 3 (PCR) Not detected (Not Detect) Parainfluenza 4 (PCR) Not detected (Not Detect) RSV (PCR) Not detected (Not Detect) Entero/Rhino (PCR) Not detected (Not Detect) 04/20/24 04/20/24 04/20/24 Range/Units 01:23 01:37 02:06 WBC (4.5-11.0) X10^3/uL RBC (4.0-5.2) X10^6/uL Hgb (12.0-16.0) g/dL Hct (36-46) % MCV (80-100) fL MCH (26-34) PG MCHC (30-36) % RDW (11.6-14.8) % Plt Count (150-400) X10^3/uL Neut % (Auto) (50-75) % Lymph % (Auto) (25-40) % [place] % (Auto) (3-14) % Eos % (Auto) (2-4) % Baso % (Auto) (0-2) % Neut # (Auto) (6648-1853) /uL Lymph # (Auto) (4234-6729) /uL [place] # (Auto) (0-900) /uL Eos # (Auto) (0-450) /uL Baso # (Auto) (0-100) /uL PT (9.4-12.5) SECONDS INR (0.9-1.3) ABG Sample Site Right radial ABG pH 7.58 H (7.35-7.45) ABG pCO2 20.6 L* (35-45) mmHg ABG pO2 112 H (80-100) mmHg ABG HCO3 19 L (23-27) mmol/L ABG Total CO2 19 L (23-27) mmol/L ABG O2 Saturation 99 (95-100) % ABG Base Excess -1.3 (-2-3) mmol/L O2 Delivery Device Not Reportable FiO2 21 Sodium 139 (137-145) mmol/L Potassium 3.2 L (3.4-5.1) mmol/L Chloride 110 H (98-107) mmol/L Carbon Dioxide 21 L (22-32) mmol/L BUN 49 H (7-17) mg/dL Creatinine 1.25 H (0.52-1.04) mg/dL Estimated GFR 45 L (>60) mL/min BUN/Creatinine Ratio 39.2 H (6-22) Glucose 115 H (80-110) mg/dL Lactate 1.5 (0.7-2.1) mmol/L Calcium 11.1 H (8.4-10.2) mg/dL Magnesium (1.6-2.3) mg/dL Total Bilirubin 0.7 (0.2-1.3) mg/dL AST 74 H (14-36) IU/L ALT 36 H (<35) IU/L Alkaline Phosphatase 88 (38-126) U/L Ammonia (9-30) umol/L NT-Pro-B Natriuret Pep (<450) pg/mL Total Protein 7.3 (6.3-8.2) g/dL Albumin 3.7 (3.5-5.0) g/dL Globulin 3.6 (1.7-4.1) g/dL Albumin/Globulin Ratio 1.0 (1.0-2.8) Lipase (23-300) U/L Procalcitonin (<0.5) ng/mL Urine Color Yellow Urine Appearance Clear Urine pH 6.0 (4.5-8.0) Ur Specific [place] <=1.005 (1.000-1.035) Urine Protein Negative (Negative) Urine Glucose (UA) Negative (Negative) g/dL Urine Ketones Negative (NEGATIVE) Urine Occult Blood Negative (Negative) Urine Nitrate Positive H (Negative) Urine Bilirubin Negative (NEGATIVE) Urine Urobilinogen 0.2 (0.2) E.U./dL Ur Leukocyte Esterase Negative (NEGATIVE) Urine RBC None seen (0-5/HPF) Urine WBC (0-5/HPF) Ur Squamous Epith Cells (0-5/HPF) Ur Transition Epith Cell Ur Renal Epithelial Cell Calcium Oxalate Crystal Uric Acid Crystals Triple Phos Crystals Other Crystals Amorphous Sediment Urine Bacteria (None) Hyaline Casts Granular Casts RBC Casts WBC Casts Other Casts Urine Mucus Urine Trichomonas Urine Yeast Urine Sperm Ur Culture Indicated? Micro UA Comment Vol Urine Centrifuged U Opiates 300ng/mL cut (Negative) Ur Oxycodone Screen (Negative) Urine Methadone Screen (Negative) Ur Barbiturates Screen (Negative) U Tricyclic Antidepress (Negative) Ur Phencyclidine Scrn (Negative) Ur Amphetamines Screen (Negative) U Methamphetamines Scrn (Negative) Ur MDMA Scrn (Ecstasy) (Negative) U Benzodiazepines Scrn (Negative) Urine Cocaine Screen (Negative) U Marijuana (THC) Screen (Negative) Urine Specific [place] (Normal) Ur Creatinine (Normal) Chlamy pneumoniae PCR (Not Detect) Adenovirus (PCR) (Not Detect) B.parapertussis DNA PCR (Not Detecte) Coronavirus OC43 (PCR) (Not Detect) Coronavirus HKU1 (PCR) (Not Detect) Coronavirus 229E (PCR) (Not Detect) SARS-CoV-2 (PCR) (Not Detecte) Coronavirus NL63 (PCR) (Not Detect) Human Metapneumovir PCR (Not Detect) Influenza Type A (PCR) (Not Detect) Influenza Type B (PCR) (Not Detect) M. pneumoniae (PCR) (Not Detect) Parainfluenza 1 (PCR) (Not Detect) Parainfluenza 2 (PCR) (Not Detect) Parainfluenza 3 (PCR) (Not Detect) Parainfluenza 4 (PCR) (Not Detect) RSV (PCR) (Not Detect) Entero/Rhino (PCR) (Not Detect) 04/20/24 04/20/24 04/20/24 Range/Units 02:06 02:06 02:06 WBC (4.5-11.0) X10^3/uL RBC (4.0-5.2) X10^6/uL Hgb (12.0-16.0) g/dL Hct (36-46) % MCV (80-100) fL MCH (26-34) PG MCHC (30-36) % RDW (11.6-14.8) % Plt Count (150-400) X10^3/uL Neut % (Auto) (50-75) % Lymph % (Auto) (25-40) % [place] % (Auto) (3-14) % Eos % (Auto) (2-4) % Baso % (Auto) (0-2) % Neut # (Auto) (8472-2037) /uL Lymph # (Auto) (8644-9955) /uL [place] # (Auto) (0-900) /uL Eos # (Auto) (0-450) /uL Baso # (Auto) (0-100) /uL PT (9.4-12.5) SECONDS INR (0.9-1.3) ABG Sample Site ABG pH (7.35-7.45) ABG pCO2 (35-45) mmHg ABG pO2 (80-100) mmHg ABG HCO3 (23-27) mmol/L ABG Total CO2 (23-27) mmol/L ABG O2 Saturation (95-100) % ABG Base Excess (-2-3) mmol/L O2 Delivery Device FiO2 Sodium (137-145) mmol/L Potassium (3.4-5.1) mmol/L Chloride (98-107) mmol/L Carbon Dioxide (22-32) mmol/L BUN (7-17) mg/dL Creatinine (0.52-1.04) mg/dL Estimated GFR (>60) mL/min BUN/Creatinine Ratio (6-22) Glucose (80-110) mg/dL Lactate (0.7-2.1) mmol/L Calcium (8.4-10.2) mg/dL Magnesium (1.6-2.3) mg/dL Total Bilirubin (0.2-1.3) mg/dL AST (14-36) IU/L ALT (<35) IU/L Alkaline Phosphatase (38-126) U/L Ammonia (9-30) umol/L NT-Pro-B Natriuret Pep (<450) pg/mL Total Protein (6.3-8.2) g/dL Albumin (3.5-5.0) g/dL Globulin (1.7-4.1) g/dL Albumin/Globulin Ratio (1.0-2.8) Lipase (23-300) U/L Procalcitonin (<0.5) ng/mL Urine Color Urine Appearance Urine pH (4.5-8.0) Ur Specific [place] (1.000-1.035) Urine Protein (Negative) Urine Glucose (UA) (Negative) g/dL Urine Ketones (NEGATIVE) Urine Occult Blood (Negative) Urine Nitrate (Negative) Urine Bilirubin (NEGATIVE) Urine Urobilinogen (0.2) E.U./dL Ur Leukocyte Esterase (NEGATIVE) Urine RBC Cancelled (0-5/HPF) Urine WBC None seen Cancelled (0-5/HPF) Ur Squamous Epith Cells 0-1 /hpf D Cancelled (0-5/HPF) Ur Transition Epith Cell Cancelled Ur Renal Epithelial Cell Cancelled Calcium Oxalate Crystal Cancelled Uric Acid Crystals Cancelled Triple Phos Crystals Cancelled Other Crystals Cancelled Amorphous Sediment Cancelled Urine Bacteria Many (>30) H (None) Hyaline Casts Granular Casts RBC Casts WBC Casts Other Casts Urine Mucus Urine Trichomonas Urine Yeast Urine Sperm Ur Culture Indicated? Micro UA Comment Vol Urine Centrifuged U Opiates 300ng/mL cut (Negative) Ur Oxycodone Screen (Negative) Urine Methadone Screen (Negative) Ur Barbiturates Screen (Negative) U Tricyclic Antidepress (Negative) Ur Phencyclidine Scrn (Negative) Ur Amphetamines Screen (Negative) U Methamphetamines Scrn (Negative) Ur MDMA Scrn (Ecstasy) (Negative) U Benzodiazepines Scrn (Negative) Urine Cocaine Screen (Negative) U Marijuana (THC) Screen (Negative) Urine Specific [place] (Normal) Ur Creatinine (Normal) Chlamy pneumoniae PCR (Not Detect) Adenovirus (PCR) (Not Detect) B.parapertussis DNA PCR (Not Detecte) Coronavirus OC43 (PCR) (Not Detect) Coronavirus HKU1 (PCR) (Not Detect) Coronavirus 229E (PCR) (Not Detect) SARS-CoV-2 (PCR) (Not Detecte) Coronavirus NL63 (PCR) (Not Detect) Human Metapneumovir PCR (Not Detect) Influenza Type A (PCR) (Not Detect) Influenza Type B (PCR) (Not Detect) M. pneumoniae (PCR) (Not Detect) Parainfluenza 1 (PCR) (Not Detect) Parainfluenza 2 (PCR) (Not Detect) Parainfluenza 3 (PCR) (Not Detect) Parainfluenza 4 (PCR) (Not Detect) RSV (PCR) (Not Detect) Entero/Rhino (PCR) (Not Detect) 04/20/24 04/20/24 04/20/24 Range/Units 02:06 02:06 02:06 WBC (4.5-11.0) X10^3/uL RBC (4.0-5.2) X10^6/uL Hgb (12.0-16.0) g/dL Hct (36-46) % MCV (80-100) fL MCH (26-34) PG MCHC (30-36) % RDW (11.6-14.8) % Plt Count (150-400) X10^3/uL Neut % (Auto) (50-75) % Lymph % (Auto) (25-40) % [place] % (Auto) (3-14) % Eos % (Auto) (2-4) % Baso % (Auto) (0-2) % Neut # (Auto) (5507-1804) /uL Lymph # (Auto) (9448-8459) /uL [place] # (Auto) (0-900) /uL Eos # (Auto) (0-450) /uL Baso # (Auto) (0-100) /uL PT (9.4-12.5) SECONDS INR (0.9-1.3) ABG Sample Site ABG pH (7.35-7.45) ABG pCO2 (35-45) mmHg ABG pO2 (80-100) mmHg ABG HCO3 (23-27) mmol/L ABG Total CO2 (23-27) mmol/L ABG O2 Saturation (95-100) % ABG Base Excess (-2-3) mmol/L O2 Delivery Device FiO2 Sodium (137-145) mmol/L Potassium (3.4-5.1) mmol/L Chloride (98-107) mmol/L Carbon Dioxide (22-32) mmol/L BUN (7-17) mg/dL Creatinine (0.52-1.04) mg/dL Estimated GFR (>60) mL/min BUN/Creatinine Ratio (6-22) Glucose (80-110) mg/dL Lactate (0.7-2.1) mmol/L Calcium (8.4-10.2) mg/dL Magnesium (1.6-2.3) mg/dL Total Bilirubin (0.2-1.3) mg/dL AST (14-36) IU/L ALT (<35) IU/L Alkaline Phosphatase (38-126) U/L Ammonia (9-30) umol/L NT-Pro-B Natriuret Pep (<450) pg/mL Total Protein (6.3-8.2) g/dL Albumin (3.5-5.0) g/dL Globulin (1.7-4.1) g/dL Albumin/Globulin Ratio (1.0-2.8) Lipase (23-300) U/L Procalcitonin (<0.5) ng/mL Urine Color Urine Appearance Urine pH Normal (4.5-8.0) Ur Specific [place] (1.000-1.035) Urine Protein (Negative) Urine Glucose (UA) (Negative) g/dL Urine Ketones (NEGATIVE) Urine Occult Blood (Negative) Urine Nitrate (Negative) Urine Bilirubin (NEGATIVE) Urine Urobilinogen (0.2) E.U./dL Ur Leukocyte Esterase (NEGATIVE) Urine RBC (0-5/HPF) Urine WBC (0-5/HPF) Ur Squamous Epith Cells (0-5/HPF) Ur Transition Epith Cell Ur Renal Epithelial Cell Calcium Oxalate Crystal Uric Acid Crystals Triple Phos Crystals Other Crystals Amorphous Sediment Urine Bacteria Cancelled (None) Hyaline Casts Cancelled Granular Casts Cancelled RBC Casts Cancelled WBC Casts Cancelled Other Casts Cancelled Urine Mucus Cancelled Urine Trichomonas Cancelled Urine Yeast Cancelled Urine Sperm Cancelled Ur Culture Indicated? Specimen cultured Cancelled Micro UA Comment Cancelled Vol Urine Centrifuged 10ml (spun) Cancelled U Opiates 300ng/mL cut Positive H (Negative) Ur Oxycodone Screen Negative (Negative) Urine Methadone Screen Negative (Negative) Ur Barbiturates Screen Negative (Negative) U Tricyclic Antidepress Negative (Negative) Ur Phencyclidine Scrn Negative (Negative) Ur Amphetamines Screen Negative (Negative) U Methamphetamines Scrn Negative (Negative) Ur MDMA Scrn (Ecstasy) Negative (Negative) U Benzodiazepines Scrn Negative (Negative) Urine Cocaine Screen Negative (Negative) U Marijuana (THC) Screen Negative (Negative) Urine Specific [place] Normal (Normal) Ur Creatinine Normal (Normal) Chlamy pneumoniae PCR (Not Detect) Adenovirus (PCR) (Not Detect) B.parapertussis DNA PCR (Not Detecte) Coronavirus OC43 (PCR) (Not Detect) Coronavirus HKU1 (PCR) (Not Detect) Coronavirus 229E (PCR) (Not Detect) SARS-CoV-2 (PCR) (Not Detecte) Coronavirus NL63 (PCR) (Not Detect) Human Metapneumovir PCR (Not Detect) Influenza Type A (PCR) (Not Detect) Influenza Type B (PCR) (Not Detect) M. pneumoniae (PCR) (Not Detect) Parainfluenza 1 (PCR) (Not Detect) Parainfluenza 2 (PCR) (Not Detect) Parainfluenza 3 (PCR) (Not Detect) Parainfluenza 4 (PCR) (Not Detect) RSV (PCR) (Not Detect) Entero/Rhino (PCR) (Not Detect) Point of care testing: Point of Care Testing Glucose POC 150 Urine Dip Bedside Urine Glucose Negative Bedside Urine Bilirubin - Negative Bedside Urine Ketone - Negative Urine Specific [place] 1.010 Bedside Urine Occult Blood - Negative Bedside Urine pH 7.0 Bedside Urine Protein - Negative Bedside Urine Urobilinogen - Negative Bedside Urine Nitrite + Positive Bedside Urine Leukocytes - Negative Esterase Imaging Data CT scan - abdomen/pelvis: Radiologist's Impression: PROCEDURE: CT ABDOMEN PELVIS WO CON INDICATIONS: midepigastric pain, AMS TECHNIQUE: Axial sections were acquired from the lung bases to the pubic symphysis. Coronal and sagittal reformats were performed. For radiation dose reduction, the following was used: automated exposure control, adjustment of mA and/or kV according to patient size. COMPARISON: [facility], CT, ABDOMEN/PELVIS WITH CONTRAST, 11/28/2013, 8:30. FINDINGS: Image quality: Diagnostic. Lower Chest: No significant findings. URINARY: Right Kidney: No stones or hydronephrosis. Hyperdense exophytic focus is present posteriorly on right measuring 1 point cm. Scattered hypodensities are also present. Right Ureter: No hydroureter. Left Kidney: Low-attenuation foci Left Ureter: No hydroureter. Bladder: Normal wall thickness. No stones. ABDOMEN: Liver: No contour-deforming solid mass. Gallbladder: Removed. Biliary ducts: Common bile is measuring 1.0 cm. Pancreas: No ductal dilation. Spleen: Removed. Adrenal Glands: No adrenal nodules. Stomach and Bowel: Normal colonic caliber, without significant wall thickening. Moderate hiatal hernia. There is a fat containing within the anterior transverse colon. It measures 4.3 cm AP x 8 2 cm transverse. This was present in 2013 at which it measured approximately 2.8 x 3.5 cm. There is no proximal obstruction. Peritoneum: No abnormal intraperitoneal fluid. No free air. Ventral Wall: No hernia. Abdominal Nodes: No enlarged retroperitoneal or mesenteric lymph nodes. Vessels: Aorta and inferior vena cava are normal in size. PELVIS: Pelvic Organs: Unremarkable. Pelvic Nodes: Unremarkable. Miscellaneous: No inguinal hernias are seen. Bones: Unremarkable. 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 This is increased in size since 2014. No obstruction. Diverticulosis. Hyperdense exophytic focus arising from the right kidney. While this could represent hyperdense cysts, other etiologies cannot be excluded. Further evaluation as clinically indicated with ultrasound or dedicated renal CT/MR protocol is recommended as indicated. Hiatal hernia. Dictated by: Gisselle Lazar M.D. on 04/20/2024 at 0:30 Approved by: Gisselle Lazar M.D. on 04/20/2024 at 0:47 Chest x-ray: Radiologist's Impression: PROCEDURE: XR CHEST 1V INDICATIONS: AMS TECHNIQUE: One view of the chest was acquired. COMPARISON: [facility], , XR CHEST 2V, 06/29/2023, 15:24. FINDINGS: Surgical changes and devices: None. Lungs and pleura: Lungs are clear. No pleural effusions or pneumothorax. Mediastinum: Mediastinal contours appear normal. Heart size is enlarged. Bones and chest wall: No suspicious bony lesions. Overlying soft tissues appear unremarkable. IMPRESSION: No acute pulmonary process. Dictated by: Gisselle Lazar M.D. on 04/20/2024 at 0:30 Approved by: Gisselle Lazar M.D. on 04/20/2024 at 0:30 CT scan - head: Radiologist's Impression: PROCEDURE: CT HEAD/BRAIN WO CON INDICATIONS: AMS TECHNIQUE: Noncontrast 4.5 mm thick angled axial sections acquired from the foramen magnum to the vertex, with coronal and sagittal reformats. For radiation dose reduction, the following was used: automated exposure control, adjustment of mA and/or kV according to patient size. COMPARISON: None. FINDINGS: Image quality: Diagnostic. CSF spaces: Basal cisterns are patent. No extra-axial fluid collections. The ventricles are symmetric in size and shape. Brain: No intracranial bleeds or masses. There is cerebral volume loss for age, with resultant ventricular and sulcal prominence. There are periventricular and deep white matter chronic small vessel ischemic changes. There is intracranial internal carotid artery atherosclerosis. Skull and face: Calvarium and visualized facial bones appear intact, without suspicious lesions. Sinuses: Visualized sinuses and mastoids are clear. IMPRESSION: 1. No acute intracranial process. 2. Moderate atrophy and chronic microvascular ischemic changes. Dictated by: Gisselle Lazar M.D. on 04/20/2024 at 0:29 Approved by: Gisselle Lazar M.D. on 04/20/2024 at 0:29 MDM Narrative Medical decision making narrative: Altered mental status of unknown exact duration, worse today. Patient has her eyes closed, she alternately moans and laughs, following commands but unable to provide any meaningful history. Abdomen soft, minimally tender to deep palpation in the midepigastric region without rebound or guarding. Hemodynamically stable. Labs and imaging to be obtained. Laboratory work significant for WBC count 11.7, hemoglobin 12.4, platelets 205, sodium 138, potassium 3.6, creatinine 1.56, GFR 34, calcium 13.1, magnesium 1.4, ammonia undetectable. Patient's last creatinine in system greater than 7 months ago. Uncertain etiology of hypercalcemia, patient was on hydrochlorothiazide, no other medications that would obviously raise blood calcium. Patient given calcitonin, 2 L of IV fluids. CT brain negative for acute findings. CT abdomen and pelvis negative for etiology of patient's reported abdominal pain. Calcium improved with IV fluids and calcitonin to 11.1. Patient still altered, no change in mental status from arrival. Urinalysis positive for leukocyte esterase and nitrites with many bacteria. Given dose of IV Rocephin. Based on patient's continued encephalopathy with elevated calcium and suspected urinary tract infection patient to be admitted for further treatment. Critical Care Time Critical Care Time Critical Care Time: Yes Total Critical Care Time: 36 Attestation: Metabolic encephalopathy with hypercalcemia and likely urinary tract infection. Critical care includes aggressive IV fluid hydration, neurologic assessments, management of hypercalcemia Discharge Plan Departure Patient Disposition: Admitted as Observation Clinical Impression: Hypercalcemia, Acute metabolic encephalopathy, Acute UTI, CINTHYA (acute kidney injury) Admit Date/Time: 04/20/24 02:33 Admit Provider: Johny Gibson
[2024-04-19 23:39] LABS: Add Manual Diff / Slide Review NO; Basophils Absolute Auto 100 /uL (0-100); Basophils Percent Auto 0.5 % (0-2); Eosinophils Absolute Auto 0 /uL (0-450); Eosinophils Percent Auto 0.3 % (2-4); Hematocrit 36.5 % (36-46); Hemoglobin 12.4 g/dL (12.0-16.0); Lymphocytes Absolute Auto 3200 /uL (1100-4500); Lymphocytes Percent Auto 27.6 % (25-40); Mean Corpuscular HGB Conc 33.9 % (30-36); Mean Corpuscular Hemoglobin 31.8 PG (26-34); Mean Corpuscular Volume 93.9 fL (80-100); Monocytes Absolute Auto 800 /uL (0-900); Monocytes Percent Auto 7.2 % (3-14); Neutrophils Absolute Auto 7500 /uL (1500-7000); Neutrophils Percent Auto 64.4 % (50-75); Platelet Count 205 X10^3/uL (150-400); Red Blood Cell Count 3.89 X10^6/uL (4.0-5.2); Red Cell Distribution Width 13.5 % (11.6-14.8); White Blood Cell Count 11.7 X10^3/uL (4.5-11.0)
[2024-04-19] MEDS: SODIUM CHLORIDE 0.9% 1,000 ML 1000 ML IV (23:43)
[2024-04-19] MEDS: MORPHINE 4 MG/ML INJ IV (23:44)
[2024-04-19 23:51] LABS: Alanine Aminotransferase 21 IU/L (<35); Albumin 4.5 g/dL (3.5-5.0); Alkaline Phosphatase 84 U/L (38-126); Aspartate Aminotransferase 25 IU/L (14-36); BUN Creatinine Ratio 35.3 (6-22); Bilirubin Total 0.6 mg/dL (0.2-1.3); Blood Urea Nitrogen 55 mg/dL (7-17); Carbon Dioxide 23 mmol/L (22-32); Chloride 102 mmol/L (98-107); Estimated Glomerular Filt Rate 34 mL/min (>60); Globulin 4.3 g/dL (1.7-4.1); Glucose 158 mg/dL (80-110); HEMOLYSIS < 15 (0-50); Lactate (Lactic Acid) 2.4 mmol/L (0.7-2.1); Lipase 55 U/L (23-300); Magnesium 1.4 mg/dL (1.6-2.3); Potassium 3.6 mmol/L (3.4-5.1); Sodium 138 mmol/L (137-145); Total Protein 8.8 g/dL (6.3-8.2)
[2024-04-19 23:52] VITALS: PULSE 77; RESP 16
[2024-04-19 23:56] LABS: Calcium 13.1 mg/dL (8.4-10.2)
[2024-04-19 23:59] VITALS: BP 133/63; PULSE 78; RESP 25
[2024-04-20] VITALS (15 sets, daily range): BP systolic 111–136; BP diastolic 43–70; PULSE 75–96; RESP 14–25; TEMP 36.1–36.7; O2SAT 92–99; BMI 26.4
[2024-04-20] LABS: NT-proBNP (BNP-Adult 18+) 45 pg/mL (<450)
[2024-04-20 00:07] LABS: Procalcitonin 0.074 ng/mL (<0.5)
[2024-04-20 00:16] LABS: Ammonia (NH3) < 9 umol/L (9-30)
[2024-04-20] MEDS: SODIUM CHLORIDE 0.9% 1,000 ML 1000 ML IV (00:34)
[2024-04-20] MEDS: MAGNESIUM SULFATE 2 GM/50 ML PIGGYBACK IV (00:37)
[2024-04-20] MEDS: CALCITONIN,SALMON 400 UNITS/2 ML MDV 300 UNITS IM (00:41)
[2024-04-20 00:52] LABS: Adenovirus Not Detected (Not Detect); B. parapertussis Not Detected (Not Detecte); Bordetella pertussis Not Detected (Not Detect); Chlamydophila pneumoniae Not Detected (Not Detect); Coronavirus 229E Not Detected (Not Detect); Coronavirus HKU1 Not Detected (Not Detect); Coronavirus NL 63 Not Detected (Not Detect); Coronavirus OC43 Not Detected (Not Detect); Human Metapneumovirus Not Detected (Not Detect); Human Rhinovirus/Enterovirus Not Detected (Not Detect); Influenza A Not Detected (Not Detect); Influenza B Not Detected (Not Detect); Mycoplasma pneumoniae Not Detected (Not Detect); Parainfluenza Virus 1 Not Detected (Not Detect); Parainfluenza Virus 2 Not Detected (Not Detect); Parainfluenza Virus 3 Not Detected (Not Detect); Parainfluenza Virus 4 Not Detected (Not Detect); Respiratory Syncytial Virus Not Detected (Not Detect); SARS- CoV-2 Not Detected (Not Detecte)
[2024-04-20 01:10] LABS: Reflexed Lactate in 2 Hours Y
[2024-04-20 01:43] LABS: Alanine Aminotransferase 36 IU/L (<35); Albumin 3.7 g/dL (3.5-5.0); Alkaline Phosphatase 88 U/L (38-126); Aspartate Aminotransferase 74 IU/L (14-36); BUN Creatinine Ratio 39.2 (6-22); Bilirubin Total 0.7 mg/dL (0.2-1.3); Blood Urea Nitrogen 49 mg/dL (7-17); Calcium 11.1 mg/dL (8.4-10.2); Carbon Dioxide 21 mmol/L (22-32); Chloride 110 mmol/L (98-107); Estimated Glomerular Filt Rate 45 mL/min (>60); Globulin 3.6 g/dL (1.7-4.1); Glucose 115 mg/dL (80-110); HEMOLYSIS < 15 (0-50); Lactate 2HR (Lactic Acid Rflx) 1.5 mmol/L (0.7-2.1); Potassium 3.2 mmol/L (3.4-5.1); Sodium 139 mmol/L (137-145); Total Protein 7.3 g/dL (6.3-8.2)
[2024-04-20 01:50] LABS: Blood Gas Collection Site Right Radial; pH ABG 7.58 (7.35-7.45)
[2024-04-20 01:51] LABS: Base Excess ABG -1.3 mmol/L (-2-3); HCO3 ABG 19 mmol/L (23-27); Oxygen Saturation ABG 99 % (95-100); PCO2 ABG 20.6 mmHg (35-45); PO2 ABG 112 mmHg (80-100); TCO2 ABG 19 mmol/L (23-27)
[2024-04-20 01:52] LABS: Allen Test for ABG Passed? Yes, Passed; Fractionated Inspired Oxygen 21
[2024-04-20 02:19] LABS: Appearance Urine UA CLEAR; Bilirubin Urine UA NEGATIVE (NEGATIVE); Color Urine UA YELLOW; Glucose Urine UA NEGATIVE (Negative); Ketones Urine UA NEGATIVE (NEGATIVE); Leukocyte Esterase Urine UA NEGATIVE (NEGATIVE); Nitrite Urine UA POSITIVE (Negative); Occult Blood Urine UA NEGATIVE (Negative); Protein Urine UA NEGATIVE (Negative); Specific Gravity Urine UA <=1.005 (1.000-1.035); Urobilinogen Urine UA 0.2 E.U./dL (0.2)
[2024-04-20 02:24] LABS: UR Morphine/Opiate cutoff 300 Positive (Negative); Ur Creatinine Normal (Normal); Ur Specific Gravity Normal (Normal); Urine Amphetamines Negative (Negative); Urine Barbiturates Negative (Negative); Urine Benzodiazepines Negative (Negative); Urine Cocaine Negative (Negative); Urine MDMA Negative (Negative); Urine Methadone Negative (Negative); Urine Methamphetamines Negative (Negative); Urine Oxycodone Negative (Negative); Urine Phencyclidine Negative (Negative); Urine Tetrahydrocannabinol Negative (Negative); Urine Tricyclic Antidepressant Negative (Negative); Urine pH Normal (Normal)
[2024-04-20 02:35] LABS: Bacteria Urine Many (>30); Culture Indicated Urine Specimen Cultured; RBC Urine None Seen (0-5/HPF); Squamous Epithelial Cell Urine 0-1 /HPF (0-5/HPF); Urine Volume 10mL (spun); WBC Urine None Seen (0-5/HPF)
--- NOTE | 2024-04-20 02:59 | DI.MRI.S_ITS ---
PROCEDURE: MR ABDOMEN WO/W CON INDICATIONS: hypercalcemia and renal mass TECHNIQUE: Coronal HASTE through abdomen and pelvis; axial 2D FLASH in- and [id number] (with and without fat saturation), and breath-hold T2 FSE from the hepatic dome to the bottom of the kidneys. Coronal HASTE MR urogram of kidneys and bladder. Dynamic coronal VIBE during IV gadolinium administration; postgadolinium axial VIBE or 2D FLASH with fat saturation from the hepatic dome through the kidneys. COMPARISON: [facility], CT, CT ABDOMEN PELVIS WO CON, 04/19/2024, 23:23. FINDINGS: Image quality: Suboptimal due to motion artifact. Kidneys and Ureters: No hydronephrosis. No solid mass. Multiple renal cysts are present. The previously described lesions with indeterminate attenuation demonstrate T1 hyperintense characteristics, favoring benign hemorrhagic cysts. These include: -2.3 cm lesion at the superior pole of the left kidney (series 5, image 12) -2.2 cm lesion along the lateral margin of the right kidney (series 5, image 23). Enhancement of lesions cannot be confirmed due to the presence of T1 hyperintense signal and motion artifact. OTHER: Lung bases: Small hiatal hernia.. Liver: No solid mass. Gallbladder: Absent. Biliary ducts: No biliary dilation. Pancreas: No ductal dilation. Spleen: Size is within normal limits. Adrenal Glands: No adrenal nodules. Stomach and Bowel: Normal colonic caliber, without significant wall thickening. Colonic diverticulosis without evidence of diverticulitis. Peritoneum: No abnormal intraperitoneal fluid. No free air. Ventral Wall: No hernia. Abdominal Nodes: No retroperitoneal or mesenteric adenopathy by size criteria. Vessels: Aorta and inferior vena cava are normal in size. Bones: No aggressive osseous abnormality. IMPRESSION: Suboptimal evaluation due to motion artifact. This degrades the subtraction sequences, and does not allow for evaluation of true enhancement. Indeterminate lesions of the kidneys demonstrate intrinsic T1 hyperintense properties, favoring benign hemorrhagic cysts. However, given the limitations listed above, short-term follow-up with multiphasic CT should be considered in 6 months. Dictated by: Bulmaro Coyle M.D. on 04/20/2024 at 16:26 Approved by: Bulmaro Coyle M.D. on 04/20/2024 at 16:31
[2024-04-20] MEDS: SODIUM CHLORIDE 0.9% 1,000 ML 125 ML IV ×3 (03:50→22:45)
--- NOTE | 2024-04-20 05:08 | EKG_ITS ---
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
[2024-04-20] MEDS: cefTRIAXone 1,000 MG in SODIUM CHLORIDE 0.9% 100 ML 200 MG IV (05:25)
--- NOTE | 2024-04-20 05:25 | PM.HP.1 ---
History of Present Illness History of Present Illness Chief complaint: knee px, abd px, headache Narrative: 78 years old female with history of hypertension, hyperlipidemia, insulin-dependent diabetes, chronic pain presented to the ER with right upper quadrant abdominal pain, knee pain and altered mental status. The patient is poor historian but does report the pain was going on for over a week. Described as right upper quadrant, comes and goes, nonradiating, severe, relieved by pain medications, associated with some nausea and vomiting. She also reported poor appetite and feeling thirsty. Compliant with her home medications. Laboratory shows WBC 11.7, pH 7.58, pCO2 20.6, potassium 3.2, creatinine 125, blood sugar 158, lactic acid 2.4, calcium 13.1, AST 74, ALT 36, lipase 55, U tox positive for opioids, respiratory viral panel negative, procalcitonin 0.074. CT of the head and chest x-ray unremarkable. Abdominal CT scan shows hypodense exophytic focus arising from the right kidney could represent hyperdense cysts. In the ER she was given ceftriaxone 1 g IV, calcitonin, NS 2 L, magnesium 2 g IV, morphine 4 mg IV, droperidol 2.5 mg IV. 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 Preventative health care GERD (gastroesophageal reflux disease) History of migraine headaches Actinic keratosis Medication side effect Greater trochanteric bursitis of both hips Iliotibial band tendinitis of both sides Somatic dysfunction of lower extremity Bilateral knee pain Medicare annual wellness visit, subsequent Vitamin D deficiency History of pneumonia (~2013) Carpal tunnel syndrome (~2013) Oeei-Yjoi-Sajx syndrome (Unknown) Pyelonephritis (~2013) Hx of myocardial infarction (~2013) Hyperlipemia (Unknown) Hypertension (Unknown) Diabetes (Unknown) Surgical History History of back surgery (Unknown) Hx of knee surgery (Unknown) Hx of hysterectomy (Unknown) Hx of cholecystectomy (Unknown) 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) Family History Child Age: 56 Ivty-Kfmz-Kncw syndrome Father Alzheimer disease Mother Lung cancer Social History household members: spouse Smoking Status: Never smoker second hand exposure: No alcohol intake: current substance use type: does not use Meds Home Medications and Allergies Home Medications Medication Instructions Recorded Confirmed Type FOLIC ACID/VIT A/VIT B1/VIT 1 tab PO QDAY ##0 03/30/11 04/20/24 History (#MULTIVITAMIN) VITAMIN B COMPLEX 1 cap PO QDAY ##0 03/30/11 04/20/24 History Disabled Parking Permit #1 ea 04/16/20 04/20/24 Rx cholecalciferol (vitamin D3) 25 25 mcg PO DAILY 05/29/21 04/20/24 History mcg (1,000 unit) capsule blood sugar diagnostic (Blood #400 ea 04/03/22 04/20/24 Rx Glucose Test strips) sumatriptan succinate 50 mg tablet 50 mg PO PRN #9 tabs 04/03/22 04/20/24 Rx (Imitrex) [place] #100 ea 04/14/23 04/20/24 Rx pen needle, diabetic 32 gauge x #1,200 ea 06/29/23 04/20/24 History (TechLITE Pen Needle) albuterol sulfate 90 mcg/actuation 2 puff PO Q4-6H PRN for wheezing 12/28/23 04/20/24 Rx aerosol inhaler #8.5 grams amlodipine 10 mg tablet 10 mg PO QDAY #90 tabs 03/22/24 04/20/24 Rx atorvastatin 10 mg tablet (Lipitor) 10 mg PO HS #90 tabs 03/22/24 04/20/24 Rx hydrochlorothiazide 25 mg tablet 25 mg PO QDAY #90 tabs 03/22/24 04/20/24 Rx losartan 50 mg tablet 50 mg PO BID #180 tabs 03/22/24 04/20/24 Rx potassium chloride 10 mEq 10 meq PO DAILY #90 caps 03/22/24 04/20/24 Rx capsule,extended release tramadol 50 mg tablet 50 mg PO BID PRN pain #30 tabs 04/04/24 04/20/24 Rx lancets 30 gauge (OneTouch Delica See Rx Instructions .Route 04/07/24 04/20/24 Rx Plus Lancet) .COMPLEX #400 ea insulin glargine 100 unit/mL (3 30 unit SUBCUT DAILY 04/20/24 04/20/24 History mL) subcutaneous pen (Lantus Solostar U-100 Insulin) Allergies Allergy/AdvReac Type Severity Reaction Status Date / Time codeine [CODEINE] Allergy Severe NAUSEA AND Verified 04/04/24 13:58 VOMITING lisinopril [LISINOPRIL] AdvReac Mild COUGH Verified 04/04/24 13:58 Review of Systems Review of Systems ROS: Yes All systems reviewed with the patient and are negative except as otherwise documented Constitutional Constitutional: Reports as per HPI and Reports system reviewed and no additional complaints, except as documented Eyes Eyes: Reports as per HPI and Reports system reviewed and no additional complaints, except as documented ENT Ears, Nose, Mouth, and Throat: Yes as per HPI and Yes system reviewed and no additional complaints, except as documented Cardiovascular Cardiovascular: Reports system reviewed and no additional complaints, except as documented Respiratory Respiratory: Reports system reviewed and no additional complaints, except as documented Gastrointestinal Gastrointestinal: Reports system reviewed and no additional complaints, except as documented Genitourinary Genitourinary: Reports system reviewed and no additional complaints, except as documented Musculoskeletal Musculoskeletal: Reports system reviewed and no additional complaints, except as documented, Reports abnormal gait and Reports numbness Neurologic Neurologic: Reports system reviewed and no additional complaints, except as documented, Reports abnormal gait, Reports confusion and Reports numbness Psychiatric Psychiatric: Reports system reviewed and no additional complaints, except as documented and Reports confusion Exam Vital Signs (past 8 hours): - 04/19/24 23:09 04/19/24 23:52 04/19/24 23:59 Temperature 98.5 F Pulse Rate 88 77 78 Respiratory Rate 20 16 25 H Blood Pressure 132/69 Pulse Oximetry 96 Oxygen Delivery Method Room Air Oxygen Flow Rate 04/19/24 23:59 04/20/24 00:00 04/20/24 00:00 Temperature Pulse Rate 80 Respiratory Rate 22 Blood Pressure 133/63 130/61 Pulse Oximetry Oxygen Delivery Method Oxygen Flow Rate 04/20/24 00:30 04/20/24 00:30 04/20/24 01:00 Temperature Pulse Rate 78 88 Respiratory Rate 14 25 H Blood Pressure 136/63 Pulse Oximetry 99 99 Oxygen Delivery Method Room Air Oxygen Flow Rate 04/20/24 01:01 04/20/24 01:01 04/20/24 01:30 Temperature Pulse Rate 79 93 H Respiratory Rate 19 20 Blood Pressure 133/58 L Pulse Oximetry 99 Oxygen Delivery Method Room Air Oxygen Flow Rate 04/20/24 02:00 04/20/24 02:00 04/20/24 02:30 Temperature Pulse Rate 89 82 Respiratory Rate 15 16 Blood Pressure 135/62 Pulse Oximetry 98 93 Oxygen Delivery Method Room Air Room Air Oxygen Flow Rate 04/20/24 02:30 04/20/24 02:52 04/20/24 03:00 Temperature 97.8 F Pulse Rate 89 89 Respiratory Rate 18 14 Blood Pressure 125/70 114/47 L Pulse Oximetry 92 93 Oxygen Delivery Method Room Air Oxygen Flow Rate 04/20/24 03:00 04/20/24 04:00 04/20/24 04:05 Temperature 97.8 F Pulse Rate 89 Respiratory Rate 18 Blood Pressure 121/56 L 114/47 L Pulse Oximetry 92 Oxygen Delivery Method Room Air Oxygen Flow Rate 0 Oxygen Delivery Method Room Air Oxygen Flow Rate 0 Const General: cooperative, comfortable and well developed Orientation: alert and oriented x3 HENMT Head: normal to inspection, normocephalic and atraumatic Face and sinus: normal facial exam Mouth: oral mucosae normal and moist mucous membranes Throat: posterior oropharynx normal Eyes General: appearance normal, both eyes and all related structures Pupils: PERRL EOM: EOM intact bilaterally Neck Neck: normal visual inspection and full ROM Chest Chest: normal inspection of the chest Resp Effort & Inspection: normal respiratory effort and able to speak in complete sentences Auscultation: clear to auscultation bilaterally Cardio Palpation: normal PMI Rate: regular rate Rhythm: regular rhythm Heart Sounds: S1 normal and S2 normal GI Inspection: normal to inspection Palpation: soft and no hepatosplenomegaly Auscultation: normal bowel sounds Skin General: no rashes or lesions noted Lesions: no lesions Rashes: no rashes Trauma: no lacerations or abrasions Neuro General: patient alert, patient awake, patient oriented x3 and no focal motor deficits Cranial Nerves: CN's II-XI intact bilaterally Cognition: normal cognition Speech: speech normal Gait: normal gait Motor: muscle tone normal throughout Sensory Exam: no sensory deficits noted Extrem General: full ROM and no calf tenderness Psych Appearance: grossly normal Mental Status: mental status grossly normal Speech and Movement: speech and movement normal Objective Labs 04/19/24 23:27 04/20/24 01:23 Labs: Laboratory Results - last 24 hr 04/19/24 04/19/24 04/19/24 23:27 23:40 23:55 WBC 11.7 H RBC 3.89 L Hgb 12.4 Hct 36.5 MCV 93.9 MCH 31.8 MCHC 33.9 RDW 13.5 Plt Count 205 Neut % (Auto) 64.4 Lymph % (Auto) 27.6 [place] % (Auto) 7.2 Eos % (Auto) 0.3 L Baso % (Auto) 0.5 Neut # (Auto) 7500 H Lymph # (Auto) 3200 [place] # (Auto) 800 Eos # (Auto) 0 Baso # (Auto) 100 PT 12.0 INR 1.0 ABG Sample Site ABG pH ABG pCO2 ABG pO2 ABG HCO3 ABG Total CO2 ABG O2 Saturation ABG Base Excess O2 Delivery Device FiO2 Sodium 138 Potassium 3.6 Chloride 102 Carbon Dioxide 23 BUN 55 H Creatinine 1.56 H Estimated GFR 34 L BUN/Creatinine Ratio 35.3 H Glucose 158 H Lactate 2.4 H Calcium 13.1 H* Magnesium 1.4 L Total Bilirubin 0.6 AST 25 ALT 21 Alkaline Phosphatase 84 Ammonia < 9 L NT-Pro-B Natriuret Pep 45 Total Protein 8.8 H Albumin 4.5 Globulin 4.3 H Albumin/Globulin Ratio 1.0 Lipase 55 Procalcitonin 0.074 Urine Color Urine Appearance Urine pH Ur Specific [place] Urine Protein Urine Glucose (UA) Urine Ketones Urine Occult Blood Urine Nitrate Urine Bilirubin Urine Urobilinogen Ur Leukocyte Esterase Urine RBC Urine WBC Ur Squamous Epith Cells Ur Transition Epith Cell Ur Renal Epithelial Cell Calcium Oxalate Crystal Uric Acid Crystals Triple Phos Crystals Other Crystals Amorphous Sediment Urine Bacteria Hyaline Casts Granular Casts RBC Casts WBC Casts Other Casts Urine Mucus Urine Trichomonas Urine Yeast Urine Sperm Ur Culture Indicated? Micro UA Comment Vol Urine Centrifuged U Opiates 300ng/mL cut Ur Oxycodone Screen Urine Methadone Screen Ur Barbiturates Screen U Tricyclic Antidepress Ur Phencyclidine Scrn Ur Amphetamines Screen U Methamphetamines Scrn Ur MDMA Scrn (Ecstasy) U Benzodiazepines Scrn Urine Cocaine Screen U Marijuana (THC) Screen Urine Specific [place] Ur Creatinine Chlamy pneumoniae PCR Not detected Adenovirus (PCR) Not detected B.parapertussis DNA PCR Not detected Coronavirus OC43 (PCR) Not detected Coronavirus HKU1 (PCR) Not detected Coronavirus 229E (PCR) Not detected SARS-CoV-2 (PCR) Not detected Coronavirus NL63 (PCR) Not detected Human Metapneumovir PCR Not detected Influenza Type A (PCR) Not detected Influenza Type B (PCR) Not detected M. pneumoniae (PCR) Not detected Parainfluenza 1 (PCR) Not detected Parainfluenza 2 (PCR) Not detected Parainfluenza 3 (PCR) Not detected Parainfluenza 4 (PCR) Not detected RSV (PCR) Not detected Entero/Rhino (PCR) Not detected 04/20/24 04/20/24 04/20/24 01:23 01:37 02:06 WBC RBC Hgb Hct MCV MCH MCHC RDW Plt Count Neut % (Auto) Lymph % (Auto) [place] % (Auto) Eos % (Auto) Baso % (Auto) Neut # (Auto) Lymph # (Auto) [place] # (Auto) Eos # (Auto) Baso # (Auto) PT INR ABG Sample Site Right radial ABG pH 7.58 H ABG pCO2 20.6 L* ABG pO2 112 H ABG HCO3 19 L ABG Total CO2 19 L ABG O2 Saturation 99 ABG Base Excess -1.3 O2 Delivery Device Not Reportable FiO2 21 Sodium 139 Potassium 3.2 L Chloride 110 H Carbon Dioxide 21 L BUN 49 H Creatinine 1.25 H Estimated GFR 45 L BUN/Creatinine Ratio 39.2 H Glucose 115 H Lactate 1.5 Calcium 11.1 H Magnesium Total Bilirubin 0.7 AST 74 H ALT 36 H Alkaline Phosphatase 88 Ammonia NT-Pro-B Natriuret Pep Total Protein 7.3 Albumin 3.7 Globulin 3.6 Albumin/Globulin Ratio 1.0 Lipase Procalcitonin Urine Color Yellow Urine Appearance Clear Urine pH 6.0 Ur Specific [place] <=1.005 Urine Protein Negative Urine Glucose (UA) Negative Urine Ketones Negative Urine Occult Blood Negative Urine Nitrate Positive H Urine Bilirubin Negative Urine Urobilinogen 0.2 Ur Leukocyte Esterase Negative Urine RBC None seen Urine WBC Ur Squamous Epith Cells Ur Transition Epith Cell Ur Renal Epithelial Cell Calcium Oxalate Crystal Uric Acid Crystals Triple Phos Crystals Other Crystals Amorphous Sediment Urine Bacteria Hyaline Casts Granular Casts RBC Casts WBC Casts Other Casts Urine Mucus Urine Trichomonas Urine Yeast Urine Sperm Ur Culture Indicated? Micro UA Comment Vol Urine Centrifuged U Opiates 300ng/mL cut Ur Oxycodone Screen Urine Methadone Screen Ur Barbiturates Screen U Tricyclic Antidepress Ur Phencyclidine Scrn Ur Amphetamines Screen U Methamphetamines Scrn Ur MDMA Scrn (Ecstasy) U Benzodiazepines Scrn Urine Cocaine Screen U Marijuana (THC) Screen Urine Specific [place] Ur Creatinine Chlamy pneumoniae PCR Adenovirus (PCR) B.parapertussis DNA PCR Coronavirus OC43 (PCR) Coronavirus HKU1 (PCR) Coronavirus 229E (PCR) SARS-CoV-2 (PCR) Coronavirus NL63 (PCR) Human Metapneumovir PCR Influenza Type A (PCR) Influenza Type B (PCR) M. pneumoniae (PCR) Parainfluenza 1 (PCR) Parainfluenza 2 (PCR) Parainfluenza 3 (PCR) Parainfluenza 4 (PCR) RSV (PCR) Entero/Rhino (PCR) 04/20/24 04/20/24 04/20/24 02:06 02:06 02:06 WBC RBC Hgb Hct MCV MCH MCHC RDW Plt Count Neut % (Auto) Lymph % (Auto) [place] % (Auto) Eos % (Auto) Baso % (Auto) Neut # (Auto) Lymph # (Auto) [place] # (Auto) Eos # (Auto) Baso # (Auto) PT INR ABG Sample Site ABG pH ABG pCO2 ABG pO2 ABG HCO3 ABG Total CO2 ABG O2 Saturation ABG Base Excess O2 Delivery Device FiO2 Sodium Potassium Chloride Carbon Dioxide BUN Creatinine Estimated GFR BUN/Creatinine Ratio Glucose Lactate Calcium Magnesium Total Bilirubin AST ALT Alkaline Phosphatase Ammonia NT-Pro-B Natriuret Pep Total Protein Albumin Globulin Albumin/Globulin Ratio Lipase Procalcitonin Urine Color Urine Appearance Urine pH Ur Specific [place] Urine Protein Urine Glucose (UA) Urine Ketones Urine Occult Blood Urine Nitrate Urine Bilirubin Urine Urobilinogen Ur Leukocyte Esterase Urine RBC Cancelled Urine WBC None seen Cancelled Ur Squamous Epith Cells 0-1 /hpf D Cancelled Ur Transition Epith Cell Cancelled Ur Renal Epithelial Cell Cancelled Calcium Oxalate Crystal Cancelled Uric Acid Crystals Cancelled Triple Phos Crystals Cancelled Other Crystals Cancelled Amorphous Sediment Cancelled Urine Bacteria Many (>30) H Hyaline Casts Granular Casts RBC Casts WBC Casts Other Casts Urine Mucus Urine Trichomonas Urine Yeast Urine Sperm Ur Culture Indicated? Micro UA Comment Vol Urine Centrifuged U Opiates 300ng/mL cut Ur Oxycodone Screen Urine Methadone Screen Ur Barbiturates Screen U Tricyclic Antidepress Ur Phencyclidine Scrn Ur Amphetamines Screen U Methamphetamines Scrn Ur MDMA Scrn (Ecstasy) U Benzodiazepines Scrn Urine Cocaine Screen U Marijuana (THC) Screen Urine Specific [place] Ur Creatinine Chlamy pneumoniae PCR Adenovirus (PCR) B.parapertussis DNA PCR Coronavirus OC43 (PCR) Coronavirus HKU1 (PCR) Coronavirus 229E (PCR) SARS-CoV-2 (PCR) Coronavirus NL63 (PCR) Human Metapneumovir PCR Influenza Type A (PCR) Influenza Type B (PCR) M. pneumoniae (PCR) Parainfluenza 1 (PCR) Parainfluenza 2 (PCR) Parainfluenza 3 (PCR) Parainfluenza 4 (PCR) RSV (PCR) Entero/Rhino (PCR) 04/20/24 04/20/24 04/20/24 02:06 02:06 02:06 WBC RBC Hgb Hct MCV MCH MCHC RDW Plt Count Neut % (Auto) Lymph % (Auto) [place] % (Auto) Eos % (Auto) Baso % (Auto) Neut # (Auto) Lymph # (Auto) [place] # (Auto) Eos # (Auto) Baso # (Auto) PT INR ABG Sample Site ABG pH ABG pCO2 ABG pO2 ABG HCO3 ABG Total CO2 ABG O2 Saturation ABG Base Excess O2 Delivery Device FiO2 Sodium Potassium Chloride Carbon Dioxide BUN Creatinine Estimated GFR BUN/Creatinine Ratio Glucose Lactate Calcium Magnesium Total Bilirubin AST ALT Alkaline Phosphatase Ammonia NT-Pro-B Natriuret Pep Total Protein Albumin Globulin Albumin/Globulin Ratio Lipase Procalcitonin Urine Color Urine Appearance Urine pH Normal Ur Specific [place] Urine Protein Urine Glucose (UA) Urine Ketones Urine Occult Blood Urine Nitrate Urine Bilirubin Urine Urobilinogen Ur Leukocyte Esterase Urine RBC Urine WBC Ur Squamous Epith Cells Ur Transition Epith Cell Ur Renal Epithelial Cell Calcium Oxalate Crystal Uric Acid Crystals Triple Phos Crystals Other Crystals Amorphous Sediment Urine Bacteria Cancelled Hyaline Casts Cancelled Granular Casts Cancelled RBC Casts Cancelled WBC Casts Cancelled Other Casts Cancelled Urine Mucus Cancelled Urine Trichomonas Cancelled Urine Yeast Cancelled Urine Sperm Cancelled Ur Culture Indicated? Specimen cultured Cancelled Micro UA Comment Cancelled Vol Urine Centrifuged 10ml (spun) Cancelled U Opiates 300ng/mL cut Positive H Ur Oxycodone Screen Negative Urine Methadone Screen Negative Ur Barbiturates Screen Negative U Tricyclic Antidepress Negative Ur Phencyclidine Scrn Negative Ur Amphetamines Screen Negative U Methamphetamines Scrn Negative Ur MDMA Scrn (Ecstasy) Negative U Benzodiazepines Scrn Negative Urine Cocaine Screen Negative U Marijuana (THC) Screen Negative Urine Specific [place] Normal Ur Creatinine Normal Chlamy pneumoniae PCR Adenovirus (PCR) B.parapertussis DNA PCR Coronavirus OC43 (PCR) Coronavirus HKU1 (PCR) Coronavirus 229E (PCR) SARS-CoV-2 (PCR) Coronavirus NL63 (PCR) Human Metapneumovir PCR Influenza Type A (PCR) Influenza Type B (PCR) M. pneumoniae (PCR) Parainfluenza 1 (PCR) Parainfluenza 2 (PCR) Parainfluenza 3 (PCR) Parainfluenza 4 (PCR) RSV (PCR) Entero/Rhino (PCR) Assessment & Plan Assessment & Plan narrative: Altered mental status with confusion. Most likely multifactorial due to hypercalcemia, dehydration, acute kidney injury and possible UTI. CT of the head negative. -Will start the patient on IV fluids and will monitor her mentation. -Hold on on any medications affecting her mentation. Hypercalcemia from uncertain etiology. Suspect occult malignancy. She was given calcitonin and fluids in the ED. Latest calcium is 11.1. -Continue with IV fluids and monitor ionized calcium closely -Telemetry. Check thyroid hormones and vitamin D Acute kidney injury. Creatinine 1.25 from 0.9. Most likely prerenal. -IV fluids, -BMP daily -Monitor urine output Electrolyte derangements including hypokalemia and hypomagnesemia. -Replace and monitor -Hold diuretics and NATALI inhibitor's for now UTI. The patient is asymptomatic. UA is not so convincing. She was given ceftriaxone 1 g IV in the ED. -Follow-up on the urine cultures -Hold on any antibiotics for now Right kidney hypodense exophytic focus arising from the right kidney with concern for malignancy. -Will order MRCP for better evaluation Diabetes mellitus type 2, insulin-dependent. -ADA diet, monitor blood sugar ACHS, -Restart her home insulin, SSI Hypertension. Hold losartan and hydrochlorothiazide for now due to CINTHYA. -Hydralazine as needed Hyperlipidemia. Restart atorvastatin and check lipids Chronic right knee pain. Hold on any opioids due to confusion for now. Tylenol as needed. Time-Based Coding :: [TOTAL MINUTES] spent with patient and on the chart (including review of chart, obtaining history, exam, reviewing outside data, placing orders, documenting exam and treatment plan, and counseling patient) on [DATE]. Quality VTE Deep Vein Thrombosis/Pulmonary Embolism Present on Admission: No MIPS - Admit I confirm the patient?s Advance Care Plan is present, Code status is documented, Surrogate decision maker is in patient?s record [If Yes, STOP here]: Yes MIPS - Meds 'Current medications' to include all prescriptions, [id number] products, herbals, cannabis/cannabidiol products, and vitamin/mineral/dietary (nutritional) supplements. I have utilized all available resources to obtain, update, or review the patient?s current medications. [If Yes, STOP here]: Yes
[2024-04-20] MEDS: POTASSIUM CHLORIDE IN WATER 10 MEQ/100 ML PIGGYBACK 100 MEQ IV ×2 (06:05→07:09)
[2024-04-20 06:39] LABS: BUN Creatinine Ratio 38.6 (6-22); Blood Urea Nitrogen 44 mg/dL (7-17); Calcium 10.7 mg/dL (8.4-10.2); Carbon Dioxide 23 mmol/L (22-32); Chloride 111 mmol/L (98-107); Estimated Glomerular Filt Rate 50 mL/min (>60); Glucose 102 mg/dL (80-110); HEMOLYSIS < 15 (0-50); Potassium 3.1 mmol/L (3.4-5.1); Sodium 141 mmol/L (137-145)
[2024-04-20 06:41] LABS: Cholesterol 120 mg/dL (140-199); HDL Cholesterol 30 mg/dL (40-60); LDL Cholesterol Calculated 64 mg/dL (<100); Triglycerides 131 mg/dL (35-150)
--- NOTE | 2024-04-20 06:50 | PC.NURSE ---
Addendum entered by Lawanda Cervantes R.N. 04/20/24 06:51: Pt mental status returned to baseline, A/O x 4, answering questions appropriately, able to remember detailed medication information. Original Note: SOUR BLEACHING PLEATER reported Pt going in and out of A flutter on telemetry. Provider notified, and repeat EKG ordered.
--- NOTE | 2024-04-20 07:28 | P.HP_ITS ---
History of Present Illness History of Present Illness Date Patient Seen: 04/20/24 Chief complaint: knee px, abd px, headache Narrative: From night doctor: 78 years old female with history of hypertension, hyperlipidemia, insulin- dependent diabetes, chronic pain presented to the ER with right upper quadrant abdominal pain, knee pain and altered mental status. The patient is poor historian but does report the pain was going on for over a week. Described as right upper quadrant, comes and goes, nonradiating, severe, relieved by pain medications, associated with some nausea and vomiting. She also reported poor appetite and feeling thirsty. Compliant with her home medications. Laboratory shows WBC 11.7, pH 7.58, pCO2 20.6, potassium 3.2, creatinine 125, blood sugar 158, lactic acid 2.4, calcium 13.1, AST 74, ALT 36, lipase 55, U tox positive for opioids, respiratory viral panel negative, procalcitonin 0.074. CT of the head and chest x-ray unremarkable. Abdominal CT scan shows hypodense exophytic focus arising from the right kidney could represent hyperdense cysts. In the ER she was given ceftriaxone 1 g IV, calcitonin, NS 2 L, magnesium 2 g IV, morphine 4 mg IV, droperidol 2.5 mg IV. S: She presents with a one-week history of weakness. She was found to be hypercalcemic in the ED and was given calcitonin and IV fluids. She also had an UTI and was given ceftriaxone. Imaging indicated a possible right kidney mass. Her daughter's recently had surgery for hyperparathyroidism. She has no personal history of hypercalcemia. Her right anterior pain has improved and resolved since her arrival. She has a history of cholecystectomy in her liver function tests were fairly unremarkable. No recent fevers, or chills. No nausea, and vomiting. 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 Preventative health care GERD (gastroesophageal reflux disease) History of migraine headaches Actinic keratosis Medication side effect Greater trochanteric bursitis of both hips Iliotibial band tendinitis of both sides Somatic dysfunction of lower extremity Bilateral knee pain Medicare annual wellness visit, subsequent Vitamin D deficiency History of pneumonia (~2013) Carpal tunnel syndrome (~2013) Iidm-Mqhq-Dapt syndrome (Unknown) Pyelonephritis (~2013) Hx of myocardial infarction (~2013) Hyperlipemia (Unknown) Hypertension (Unknown) Diabetes (Unknown) Surgical History History of back surgery (Unknown) Hx of knee surgery (Unknown) Hx of hysterectomy (Unknown) Hx of cholecystectomy (Unknown) 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) Family History Child Age: 56 Czdp-Jads-Sikt syndrome Father Alzheimer disease Mother Lung cancer Social History household members: spouse Smoking Status: Never smoker second hand exposure: No alcohol intake: current substance use type: does not use Meds Home Medications and Allergies Home Medications Medication Instructions Recorded Confirmed Type FOLIC ACID/VIT A/VIT B1/VIT 1 tab PO QDAY ##0 03/30/11 04/20/24 History (#MULTIVITAMIN) VITAMIN B COMPLEX 1 cap PO QDAY ##0 03/30/11 04/20/24 History Disabled Parking Permit #1 ea 04/16/20 04/20/24 Rx cholecalciferol (vitamin D3) 25 25 mcg PO DAILY 05/29/21 04/20/24 History mcg (1,000 unit) capsule blood sugar diagnostic (Blood #400 ea 04/03/22 04/20/24 Rx Glucose Test strips) sumatriptan succinate 50 mg tablet 50 mg PO PRN #9 tabs 04/03/22 04/20/24 Rx (Imitrex) [place] #100 ea 04/14/23 04/20/24 Rx pen needle, diabetic 32 gauge x #1,200 ea 06/29/23 04/20/24 History / (TechLITE Pen Needle) albuterol sulfate 90 mcg/actuation 2 puff PO Q4-6H PRN for wheezing 12/28/23 04/20/24 Rx aerosol inhaler #8.5 grams amlodipine 10 mg tablet 10 mg PO QDAY #90 tabs 03/22/24 04/20/24 Rx atorvastatin 10 mg tablet (Lipitor) 10 mg PO HS #90 tabs 03/22/24 04/20/24 Rx hydrochlorothiazide 25 mg tablet 25 mg PO QDAY #90 tabs 03/22/24 04/20/24 Rx losartan 50 mg tablet 50 mg PO BID #180 tabs 03/22/24 04/20/24 Rx potassium chloride 10 mEq 10 meq PO DAILY #90 caps 03/22/24 04/20/24 Rx capsule,extended release tramadol 50 mg tablet 50 mg PO BID PRN pain #30 tabs 04/04/24 04/20/24 Rx lancets 30 gauge (OneTouch Delica See Rx Instructions .Route 04/07/24 04/20/24 Rx Plus Lancet) .COMPLEX #400 ea insulin glargine 100 unit/mL (3 30 unit SUBCUT DAILY 04/20/24 04/20/24 History mL) subcutaneous pen (Lantus Solostar U-100 Insulin) Allergies Allergy/AdvReac Type Severity Reaction Status Date / Time codeine [CODEINE] Allergy Severe NAUSEA AND Verified 04/04/24 13:58 VOMITING lisinopril [LISINOPRIL] AdvReac Mild COUGH Verified 04/04/24 13:58 Review of Systems Review of Systems Narrative: All else reviewed and otherwise unremarkable except as noted in the history and physical. Exam Vital Signs (past 8 hours): - 04/19/24 23:52 04/19/24 23:59 04/19/24 23:59 Temperature Pulse Rate 77 78 Respiratory Rate 16 25 H Blood Pressure 133/63 Pulse Oximetry Oxygen Delivery Method Oxygen Flow Rate 04/20/24 00:00 04/20/24 00:00 04/20/24 00:30 Temperature Pulse Rate 80 Respiratory Rate 22 Blood Pressure 130/61 136/63 Pulse Oximetry Oxygen Delivery Method Oxygen Flow Rate 04/20/24 00:30 04/20/24 01:00 04/20/24 01:01 Temperature Pulse Rate 78 88 79 Respiratory Rate 14 25 H 19 Blood Pressure Pulse Oximetry 99 99 99 Oxygen Delivery Method Room Air Room Air Oxygen Flow Rate 04/20/24 01:01 04/20/24 01:30 04/20/24 02:00 Temperature Pulse Rate 93 H 89 Respiratory Rate 20 15 Blood Pressure 133/58 L Pulse Oximetry 98 Oxygen Delivery Method Room Air Oxygen Flow Rate 04/20/24 02:00 04/20/24 02:30 04/20/24 02:30 Temperature Pulse Rate 82 Respiratory Rate 16 Blood Pressure 135/62 125/70 Pulse Oximetry 93 Oxygen Delivery Method Room Air Oxygen Flow Rate 04/20/24 02:52 04/20/24 03:00 04/20/24 03:00 Temperature 97.8 F Pulse Rate 89 89 Respiratory Rate 18 14 Blood Pressure 114/47 L 121/56 L Pulse Oximetry 92 93 Oxygen Delivery Method Room Air Oxygen Flow Rate 04/20/24 04:00 04/20/24 04:05 Temperature 97.8 F Pulse Rate 89 Respiratory Rate 18 Blood Pressure 114/47 L Pulse Oximetry 92 Oxygen Delivery Method Room Air Oxygen Flow Rate 0 Oxygen Delivery Method Room Air Oxygen Flow Rate 0 Narrative Exam Narrative: NAD, alert and oriented, fluent speech, calm. She appears somewhat fatigued but is sitting up in a chair. Normocephalic skull, EOMI, anicteric sclera, symmetric pupils. Oropharynx unremarkable, no droop. Neck supple, midline trachea, no adenopathy. Lungs clear, normal rate and effort. Heart regular, no murmur gallop or rub. Abdomen is soft, non distended and non tender. Extremities are free of edema. Skin is free of rash or lesions. Joints are not swollen or deformed. Judgment appears to be normal. Objective Imaging Chest x-ray: Radiologist's impression: No acute pulmonary process. CT scan - head: Radiologist's impression: 1. No acute intracranial process. 2. Moderate atrophy and chronic microvascular ischemic changes. CT scan - abdomen: Radiologist's impression: Lower Chest: No significant findings. URINARY: Right Kidney: No stones or hydronephrosis. Hyperdense exophytic focus is present posteriorly on right measuring 1 point cm. Scattered hypodensities are also present. Right Ureter: No hydroureter. Left Kidney: Low-attenuation foci Left Ureter: No hydroureter. Bladder: Normal wall thickness. No stones. ABDOMEN: Liver: No contour-deforming solid mass. Gallbladder: Removed. Biliary ducts: Common bile is measuring 1.0 cm. Pancreas: No ductal dilation. Spleen: Removed. Adrenal Glands: No adrenal nodules. Stomach and Bowel: Normal colonic caliber, without significant wall thickening. Moderate hiatal hernia. There is a fat containing within the anterior transverse colon. It measures 4.3 cm AP x 8 2 cm transverse. This was present in 2013 at which it measured approximately 2.8 x 3.5 cm. There is no proximal obstruction. Peritoneum: No abnormal intraperitoneal fluid. No free air. Ventral Wall: No hernia. Abdominal Nodes: No enlarged retroperitoneal or mesenteric lymph nodes. Vessels: Aorta and inferior vena cava are normal in size. PELVIS: Pelvic Organs: Unremarkable. Pelvic Nodes: Unremarkable. Miscellaneous: No inguinal hernias are seen. Bones: Unremarkable. 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 This is increased in size since 2013. No obstruction. Diverticulosis. Hyperdense exophytic focus arising from the right kidney. While this could represent hyperdense cysts, other etiologies cannot be excluded. Further evaluation as clinically indicated with ultrasound or dedicated renal CT/MR protocol is recommended as indicated. Hiatal hernia. Labs 04/19/24 23:27 04/20/24 10:50 Labs: Laboratory Results - last 24 hr 04/19/24 04/19/24 04/19/24 23:27 23:40 23:55 WBC 11.7 H RBC 3.89 L Hgb 12.4 Hct 36.5 MCV 93.9 MCH 31.8 MCHC 33.9 RDW 13.5 Plt Count 205 Neut % (Auto) 64.4 Lymph % (Auto) 27.6 [place] % (Auto) 7.2 Eos % (Auto) 0.3 L Baso % (Auto) 0.5 Neut # (Auto) 7500 H Lymph # (Auto) 3200 [place] # (Auto) 800 Eos # (Auto) 0 Baso # (Auto) 100 PT 12.0 INR 1.0 ABG Sample Site ABG pH ABG pCO2 ABG pO2 ABG HCO3 ABG Total CO2 ABG O2 Saturation ABG Base Excess O2 Delivery Device FiO2 Sodium 138 Potassium 3.6 Chloride 102 Carbon Dioxide 23 BUN 55 H Creatinine 1.56 H Estimated GFR 34 L BUN/Creatinine Ratio 35.3 H Glucose 158 H Lactate 2.4 H Calcium 13.1 H* Magnesium 1.4 L Total Bilirubin 0.6 AST 25 ALT 21 Alkaline Phosphatase 84 Ammonia < 9 L NT-Pro-B Natriuret Pep 45 Total Protein 8.8 H Albumin 4.5 Globulin 4.3 H Albumin/Globulin Ratio 1.0 Triglycerides Cholesterol LDL Cholesterol, Calc HDL Cholesterol Lipase 55 Procalcitonin 0.074 Urine Color Urine Appearance Urine pH Ur Specific [place] Urine Protein Urine Glucose (UA) Urine Ketones Urine Occult Blood Urine Nitrate Urine Bilirubin Urine Urobilinogen Ur Leukocyte Esterase Urine RBC Urine WBC Ur Squamous Epith Cells Ur Transition Epith Cell Ur Renal Epithelial Cell Calcium Oxalate Crystal Uric Acid Crystals Triple Phos Crystals Other Crystals Amorphous Sediment Urine Bacteria Hyaline Casts Granular Casts RBC Casts WBC Casts Other Casts Urine Mucus Urine Trichomonas Urine Yeast Urine Sperm Ur Culture Indicated? Micro UA Comment Vol Urine Centrifuged U Opiates 300ng/mL cut Ur Oxycodone Screen Urine Methadone Screen Ur Barbiturates Screen U Tricyclic Antidepress Ur Phencyclidine Scrn Ur Amphetamines Screen U Methamphetamines Scrn Ur MDMA Scrn (Ecstasy) U Benzodiazepines Scrn Urine Cocaine Screen U Marijuana (THC) Screen Urine Specific [place] Ur Creatinine Chlamy pneumoniae PCR Not detected Adenovirus (PCR) Not detected B.parapertussis DNA PCR Not detected Coronavirus OC43 (PCR) Not detected Coronavirus HKU1 (PCR) Not detected Coronavirus 229E (PCR) Not detected SARS-CoV-2 (PCR) Not detected Coronavirus NL63 (PCR) Not detected Human Metapneumovir PCR Not detected Influenza Type A (PCR) Not detected Influenza Type B (PCR) Not detected M. pneumoniae (PCR) Not detected Parainfluenza 1 (PCR) Not detected Parainfluenza 2 (PCR) Not detected Parainfluenza 3 (PCR) Not detected Parainfluenza 4 (PCR) Not detected RSV (PCR) Not detected Entero/Rhino (PCR) Not detected 04/20/24 04/20/24 04/20/24 01:23 01:37 02:06 WBC RBC Hgb Hct MCV MCH MCHC RDW Plt Count Neut % (Auto) Lymph % (Auto) [place] % (Auto) Eos % (Auto) Baso % (Auto) Neut # (Auto) Lymph # (Auto) [place] # (Auto) Eos # (Auto) Baso # (Auto) PT INR ABG Sample Site Right radial ABG pH 7.58 H ABG pCO2 20.6 L* ABG pO2 112 H ABG HCO3 19 L ABG Total CO2 19 L ABG O2 Saturation 99 ABG Base Excess -1.3 O2 Delivery Device Not Reportable FiO2 21 Sodium 139 Potassium 3.2 L Chloride 110 H Carbon Dioxide 21 L BUN 49 H Creatinine 1.25 H Estimated GFR 45 L BUN/Creatinine Ratio 39.2 H Glucose 115 H Lactate 1.5 Calcium 11.1 H Magnesium Total Bilirubin 0.7 AST 74 H ALT 36 H Alkaline Phosphatase 88 Ammonia NT-Pro-B Natriuret Pep Total Protein 7.3 Albumin 3.7 Globulin 3.6 Albumin/Globulin Ratio 1.0 Triglycerides Cholesterol LDL Cholesterol, Calc HDL Cholesterol Lipase Procalcitonin Urine Color Yellow Urine Appearance Clear Urine pH 6.0 Ur Specific [place] <=1.005 Urine Protein Negative Urine Glucose (UA) Negative Urine Ketones Negative Urine Occult Blood Negative Urine Nitrate Positive H Urine Bilirubin Negative Urine Urobilinogen 0.2 Ur Leukocyte Esterase Negative Urine RBC None seen Urine WBC Ur Squamous Epith Cells Ur Transition Epith Cell Ur Renal Epithelial Cell Calcium Oxalate Crystal Uric Acid Crystals Triple Phos Crystals Other Crystals Amorphous Sediment Urine Bacteria Hyaline Casts Granular Casts RBC Casts WBC Casts Other Casts Urine Mucus Urine Trichomonas Urine Yeast Urine Sperm Ur Culture Indicated? Micro UA Comment Vol Urine Centrifuged U Opiates 300ng/mL cut Ur Oxycodone Screen Urine Methadone Screen Ur Barbiturates Screen U Tricyclic Antidepress Ur Phencyclidine Scrn Ur Amphetamines Screen U Methamphetamines Scrn Ur MDMA Scrn (Ecstasy) U Benzodiazepines Scrn Urine Cocaine Screen U Marijuana (THC) Screen Urine Specific [place] Ur Creatinine Chlamy pneumoniae PCR Adenovirus (PCR) B.parapertussis DNA PCR Coronavirus OC43 (PCR) Coronavirus HKU1 (PCR) Coronavirus 229E (PCR) SARS-CoV-2 (PCR) Coronavirus NL63 (PCR) Human Metapneumovir PCR Influenza Type A (PCR) Influenza Type B (PCR) M. pneumoniae (PCR) Parainfluenza 1 (PCR) Parainfluenza 2 (PCR) Parainfluenza 3 (PCR) Parainfluenza 4 (PCR) RSV (PCR) Entero/Rhino (PCR) 04/20/24 04/20/24 04/20/24 02:06 02:06 02:06 WBC RBC Hgb Hct MCV MCH MCHC RDW Plt Count Neut % (Auto) Lymph % (Auto) [place] % (Auto) Eos % (Auto) Baso % (Auto) Neut # (Auto) Lymph # (Auto) [place] # (Auto) Eos # (Auto) Baso # (Auto) PT INR ABG Sample Site ABG pH ABG pCO2 ABG pO2 ABG HCO3 ABG Total CO2 ABG O2 Saturation ABG Base Excess O2 Delivery Device FiO2 Sodium Potassium Chloride Carbon Dioxide BUN Creatinine Estimated GFR BUN/Creatinine Ratio Glucose Lactate Calcium Magnesium Total Bilirubin AST ALT Alkaline Phosphatase Ammonia NT-Pro-B Natriuret Pep Total Protein Albumin Globulin Albumin/Globulin Ratio Triglycerides Cholesterol LDL Cholesterol, Calc HDL Cholesterol Lipase Procalcitonin Urine Color Urine Appearance Urine pH Ur Specific [place] Urine Protein Urine Glucose (UA) Urine Ketones Urine Occult Blood Urine Nitrate Urine Bilirubin Urine Urobilinogen Ur Leukocyte Esterase Urine RBC Cancelled Urine WBC None seen Cancelled Ur Squamous Epith Cells 0-1 /hpf D Cancelled Ur Transition Epith Cell Cancelled Ur Renal Epithelial Cell Cancelled Calcium Oxalate Crystal Cancelled Uric Acid Crystals Cancelled Triple Phos Crystals Cancelled Other Crystals Cancelled Amorphous Sediment Cancelled Urine Bacteria Many (>30) H Hyaline Casts Granular Casts RBC Casts WBC Casts Other Casts Urine Mucus Urine Trichomonas Urine Yeast Urine Sperm Ur Culture Indicated? Micro UA Comment Vol Urine Centrifuged U Opiates 300ng/mL cut Ur Oxycodone Screen Urine Methadone Screen Ur Barbiturates Screen U Tricyclic Antidepress Ur Phencyclidine Scrn Ur Amphetamines Screen U Methamphetamines Scrn Ur MDMA Scrn (Ecstasy) U Benzodiazepines Scrn Urine Cocaine Screen U Marijuana (THC) Screen Urine Specific [place] Ur Creatinine Chlamy pneumoniae PCR Adenovirus (PCR) B.parapertussis DNA PCR Coronavirus OC43 (PCR) Coronavirus HKU1 (PCR) Coronavirus 229E (PCR) SARS-CoV-2 (PCR) Coronavirus NL63 (PCR) Human Metapneumovir PCR Influenza Type A (PCR) Influenza Type B (PCR) M. pneumoniae (PCR) Parainfluenza 1 (PCR) Parainfluenza 2 (PCR) Parainfluenza 3 (PCR) Parainfluenza 4 (PCR) RSV (PCR) Entero/Rhino (PCR) 04/20/24 04/20/24 04/20/24 02:06 02:06 02:06 WBC RBC Hgb Hct MCV MCH MCHC RDW Plt Count Neut % (Auto) Lymph % (Auto) [place] % (Auto) Eos % (Auto) Baso % (Auto) Neut # (Auto) Lymph # (Auto) [place] # (Auto) Eos # (Auto) Baso # (Auto) PT INR ABG Sample Site ABG pH ABG pCO2 ABG pO2 ABG HCO3 ABG Total CO2 ABG O2 Saturation ABG Base Excess O2 Delivery Device FiO2 Sodium Potassium Chloride Carbon Dioxide BUN Creatinine Estimated GFR BUN/Creatinine Ratio Glucose Lactate Calcium Magnesium Total Bilirubin AST ALT Alkaline Phosphatase Ammonia NT-Pro-B Natriuret Pep Total Protein Albumin Globulin Albumin/Globulin Ratio Triglycerides Cholesterol LDL Cholesterol, Calc HDL Cholesterol Lipase Procalcitonin Urine Color Urine Appearance Urine pH Normal Ur Specific [place] Urine Protein Urine Glucose (UA) Urine Ketones Urine Occult Blood Urine Nitrate Urine Bilirubin Urine Urobilinogen Ur Leukocyte Esterase Urine RBC Urine WBC Ur Squamous Epith Cells Ur Transition Epith Cell Ur Renal Epithelial Cell Calcium Oxalate Crystal Uric Acid Crystals Triple Phos Crystals Other Crystals Amorphous Sediment Urine Bacteria Cancelled Hyaline Casts Cancelled Granular Casts Cancelled RBC Casts Cancelled WBC Casts Cancelled Other Casts Cancelled Urine Mucus Cancelled Urine Trichomonas Cancelled Urine Yeast Cancelled Urine Sperm Cancelled Ur Culture Indicated? Specimen cultured Cancelled Micro UA Comment Cancelled Vol Urine Centrifuged 10ml (spun) Cancelled U Opiates 300ng/mL cut Positive H Ur Oxycodone Screen Negative Urine Methadone Screen Negative Ur Barbiturates Screen Negative U Tricyclic Antidepress Negative Ur Phencyclidine Scrn Negative Ur Amphetamines Screen Negative U Methamphetamines Scrn Negative Ur MDMA Scrn (Ecstasy) Negative U Benzodiazepines Scrn Negative Urine Cocaine Screen Negative U Marijuana (THC) Screen Negative Urine Specific [place] Normal Ur Creatinine Normal Chlamy pneumoniae PCR Adenovirus (PCR) B.parapertussis DNA PCR Coronavirus OC43 (PCR) Coronavirus HKU1 (PCR) Coronavirus 229E (PCR) SARS-CoV-2 (PCR) Coronavirus NL63 (PCR) Human Metapneumovir PCR Influenza Type A (PCR) Influenza Type B (PCR) M. pneumoniae (PCR) Parainfluenza 1 (PCR) Parainfluenza 2 (PCR) Parainfluenza 3 (PCR) Parainfluenza 4 (PCR) RSV (PCR) Entero/Rhino (PCR) 04/20/24 06:13 WBC RBC Hgb Hct MCV MCH MCHC RDW Plt Count Neut % (Auto) Lymph % (Auto) [place] % (Auto) Eos % (Auto) Baso % (Auto) Neut # (Auto) Lymph # (Auto) [place] # (Auto) Eos # (Auto) Baso # (Auto) PT INR ABG Sample Site ABG pH ABG pCO2 ABG pO2 ABG HCO3 ABG Total CO2 ABG O2 Saturation ABG Base Excess O2 Delivery Device FiO2 Sodium 141 Potassium 3.1 L Chloride 111 H Carbon Dioxide 23 BUN 44 H Creatinine 1.14 H Estimated GFR 50 L BUN/Creatinine Ratio 38.6 H Glucose 102 Lactate Calcium 10.7 H Magnesium 2.0 Total Bilirubin AST ALT Alkaline Phosphatase Ammonia NT-Pro-B Natriuret Pep Total Protein Albumin Globulin Albumin/Globulin Ratio Triglycerides 131 Cholesterol 120 L LDL Cholesterol, Calc 64 HDL Cholesterol 30 L Lipase Procalcitonin Urine Color Urine Appearance Urine pH Ur Specific [place] Urine Protein Urine Glucose (UA) Urine Ketones Urine Occult Blood Urine Nitrate Urine Bilirubin Urine Urobilinogen Ur Leukocyte Esterase Urine RBC Urine WBC Ur Squamous Epith Cells Ur Transition Epith Cell Ur Renal Epithelial Cell Calcium Oxalate Crystal Uric Acid Crystals Triple Phos Crystals Other Crystals Amorphous Sediment Urine Bacteria Hyaline Casts Granular Casts RBC Casts WBC Casts Other Casts Urine Mucus Urine Trichomonas Urine Yeast Urine Sperm Ur Culture Indicated? Micro UA Comment Vol Urine Centrifuged U Opiates 300ng/mL cut Ur Oxycodone Screen Urine Methadone Screen Ur Barbiturates Screen U Tricyclic Antidepress Ur Phencyclidine Scrn Ur Amphetamines Screen U Methamphetamines Scrn Ur MDMA Scrn (Ecstasy) U Benzodiazepines Scrn Urine Cocaine Screen U Marijuana (THC) Screen Urine Specific [place] Ur Creatinine Chlamy pneumoniae PCR Adenovirus (PCR) B.parapertussis DNA PCR Coronavirus OC43 (PCR) Coronavirus HKU1 (PCR) Coronavirus 229E (PCR) SARS-CoV-2 (PCR) Coronavirus NL63 (PCR) Human Metapneumovir PCR Influenza Type A (PCR) Influenza Type B (PCR) M. pneumoniae (PCR) Parainfluenza 1 (PCR) Parainfluenza 2 (PCR) Parainfluenza 3 (PCR) Parainfluenza 4 (PCR) RSV (PCR) Entero/Rhino (PCR) Assessment & Plan Assessment & Plan narrative: 1. Altered mental status with confusion. Present on admission and improved. Most likely multifactorial due to hypercalcemia, dehydration, acute kidney injury and possible UTI. CT of the head negative. -Will start the patient on IV fluids and will monitor her mentation. -Hold on on any medications affecting her mentation. 2. Hypercalcemia from uncertain etiology. Present on admission and improved. Calcium is 10.7. Suspect occult malignancy. She was given calcitonin and fluids in the ED. Latest calcium is 11.1. -Continue with IV fluids and monitor ionized calcium closely -Telemetry. Check thyroid hormones, PSA, and vitamin D 3. Acute kidney injury. Present on admission and active. Creatinine is 1.11. Creatinine 1.25 from 0.9. Most likely prerenal. -IV fluids, 4. Electrolyte derangements including hypokalemia and hypomagnesemia. Present on admission and active. Potassium 3.4, magnesium 2.0. -Replace and monitor -Hold diuretics and NATALI inhibitor's for now 5. UTI. Present on admission and active. The patient is asymptomatic. UA is not so convincing. She was given ceftriaxone 1 g IV in the ED. -Follow-up on the urine cultures -continue ceftriaxone. 6. Right kidney hypodense exophytic focus arising from the right kidney with concern for malignancy.Present on admission and active. -renal MRI was ordered by admitting physician in his pending. 7. Diabetes mellitus type 2, insulin-dependent. Present on admission and active. -ADA diet, monitor blood sugar ACHS, -Restart her home insulin, SSI 8. Hypertension. Present on admission and active. Hold losartan and hydrochlorothiazide for now due to CINTHYA. BP 121/57. -Hydralazine as needed. 9. Hyperlipidemia. Present on admission and active. - Restart atorvastatin and check lipids 10. Chronic right knee pain. Present on admission and active. - Hold on any opioids due to confusion for now. Tylenol as needed. PLAN: -continue IVF -monitor Calcium -replace electrolytes as needed. -right kidney imaging. -physical therapy, occupational therapy evaluations. Patient was full resuscitation, KARAN is 04/21. Inpatient status. Time-Based Coding :: 40 min spent with patient and on the chart (including review of chart, obtaining history, exam, reviewing outside data, placing orders, documenting exam and treatment plan, and counseling patient) on 04/20. Quality VTE Deep Vein Thrombosis/Pulmonary Embolism Present on Admission: No MIPS - Admit The patient?s Advance Care plan is not present because I confirmed today that the patient does not wish or was not able to name a surrogate decision maker or provide an Advance Care Plan.: Yes MIPS - Meds 'Current medications' to include all prescriptions, [id number] products, herbals, cannabis/cannabidiol products, and vitamin/mineral/dietary (nutritional) supplements. I have utilized all available resources to obtain, update, or review the patient?s current medications. [If Yes, STOP here]: Yes
[2024-04-20] MEDS: MULTIVITAMIN 1 TABLET 1 TAB PO (08:30)
[2024-04-20] MEDS: POTASSIUM CHLORIDE 20 MEQ TAB PO (08:30)
[2024-04-20] MEDS: CHOLECALCIFEROL (VITAMIN D3) 1,000 UNIT TABLET 1000 UNIT PO (08:30)
[2024-04-20] MEDS: ONDANSETRON 4 MG/2 ML INJ IV ×2 (09:38→22:57)
[2024-04-20 11:18] LABS: BUN Creatinine Ratio 35.1 (6-22); Blood Urea Nitrogen 39 mg/dL (7-17); Calcium 10.1 mg/dL (8.4-10.2); Carbon Dioxide 24 mmol/L (22-32); Chloride 111 mmol/L (98-107); Estimated Glomerular Filt Rate 52 mL/min (>60); Glucose 122 mg/dL (80-110); HEMOLYSIS < 15 (0-50); Potassium 3.4 mmol/L (3.4-5.1); Sodium 139 mmol/L (137-145)
--- NOTE | 2024-04-20 11:56 | PT.IIE ---
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) Hx of cholecystectomy (Unknown) Hx of hysterectomy (Unknown) Hx of knee surgery (Unknown) Medical History (Last Reviewed 04/20/24 @ 07:30 by Asher Wang MD) Actinic keratosis Bilateral knee pain Qgjv-Hsyv-Krtv syndrome (Unknown) Carpal tunnel syndrome (~2013) Diabetes (Unknown) GERD (gastroesophageal reflux disease) Greater trochanteric bursitis of both hips History of migraine headaches History of pneumonia (~2013) Hx of myocardial infarction (~2013) Hyperlipemia (Unknown) Hypertension (Unknown) Iliotibial band tendinitis of both sides 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 Lower back pain Medicare annual wellness visit, subsequent Medication side effect Preventative health care Pyelonephritis (~2013) Somatic dysfunction of lower extremity Vitamin D deficiency Physical Therapy Inpatient Evaluation/Re-Eval M1 PT/OT-IP Prior Functional Status Start: 04/20/24 08:03 Freq: NEEDED Status: Active Protocol: Document 04/20/24 11:30 MB (Rec: 04/20/24 11:55 MB [id number]) Medical Review Prior Functional Status Medical History Reviewed Yes Diet/Fluid Consistency Regular Communication WNLs Mobility and Gait Pt used AD for ambulation d/t knee pain and she has a RW and SPC Activities of Daily Living and IADL's Pt and live in [facility] wheel and travel around and they are staying in [facility]. She had left TKR 12/25 and plans to have a right TKR Prior Functional Level (Other details) Assistance from as needed for ADLs Social History Household Members spouse Living Arrangements RV Number of Floors (Floors) One Floor Number of Stairs To Enter/Railing? 5 steps and left rail to enter Home Environment High Toilet,Walk in Shower Home Equipment Front Wheel Walker,Straight Cane Employment Status Retired Additional Social History Comment High bed, two step ups in a doorway in the camper M2 PT-IP Current Condition Start: 04/20/24 08:03 Freq: NEEDED Status: Active Protocol: Document 04/20/24 11:30 MB (Rec: 04/20/24 11:55 MB [id number]) Physical Therapy Current Condition Current Condition Evaluation Date 04/20/24 Treatment Diagnosis RUQ pain, N/V, all over pain, recent slid on left TKR getting in truck M3 PT-IP Subjective Start: 04/20/24 08:03 Freq: NEEDED Status: Active Protocol: Document 04/20/24 11:30 MB (Rec: 04/20/24 11:55 MB [id number]) Subjective Physical Therapy Visit Type Type Initial Evaluation Visit Start Time 11:30 Visit Stop Time 11:46 Number of GUARD DANCE HALL Visits 0 Physical Therapy Visit Comments Patient Comments Pt is agreeable to therapies Therapy Pain Assessment Pain When Pain Assessed At Rest Pain Present Pain Present Denied Pain M4 PT-IP Mobility and Gait Start: 04/20/24 08:03 Freq: NEEDED Status: Active Protocol: Document 04/20/24 11:30 MB (Rec: 04/20/24 11:55 MB [id number]) PT-Bed Mobility Assessment Rolling Type of Rolling Roll to Left Level of Assist Standby Assistance,1 Person Assistance Supine to Sit Supine to Sit Standby Assistance,1 Person Assistance,Head of Bed Elevated Scooting Scooting to Edge of Bed Standby Assistance PT-Transfer Assessment Sit to and From Stand Sit to and from Stand Standby Assistance,1 Person Assistance,Use of Upper Extremities Equipment Transfer Assistive Device Gait Belt,Front Wheeled Walker Orthotic/Prosthetic Devices or Brace: No Transfers Transfer Destination Toilet Transfer Technique Ambulation Transfer Ability Level of Assist Standby Assistance,1 Person Assistance,Use of Upper Extremities Comments Mobility Comments 15' bed to BR with CGA and then SBA Gait Assessment Gait Gait Assistance Required: Standby Assistance,Contact Guard Assist Distance (Feet) 15 Able to Maintain Weight Bearing Status Yes During Gait Assistive Devices Assistive Device Gait Belt,Front Wheeled Walker Orthotic/Prosthetic Devices or Brace: No Gait Deviations General Gait Pattern Antalgic,Decreased Stride Length,Decreased Feet Clearance,Flexed Trunk Factors Limiting Gait Function Factors Limiting Gait Function Decreased Activity Tolerance, Poor Balance Comments Gait Comments Pt moves gingerly and appears antalgic but she denies pain when asked, slow moving PT-Balance Assessment Sitting Balance and Reactions Static Sitting Balance Ability Good Dynamic Sitting Balance Ability Good Standing Balance and Reactions Static Standing Balance Ability Good Dynamic Standing Balance Ability Good Device Used RW M5 PT-IP Objective Assessments Start: 04/20/24 08:03 Freq: NEEDED Status: Active Protocol: Document 04/20/24 11:30 MB (Rec: 04/20/24 11:55 MB [id number]) Orientation Orientation/Cognition Level of Alertness Alert Orientation Name,Age,Birthday,Year,Place, Situation Language Function Ability No Deficits Noted Safety Awareness Decreased Safety Awareness Memory Description No Deficits Noted Comments Pt has some confusion initially about date and states 05/08/24, which it seems is her appointment date for surgery on right knee that will be at [facility] Gross Range of Motion Upper Extremity ROM Impairments Defer to OT Lower Extremity ROM Assessment Within Functional Limits Strength Comments Strength Comments MMT deferred LEs d/t reports of history of knee pain and pt has functional strength with gait Muscle Tone Muscle Tone WNL Yes M6 PT-IP Treatment Start: 04/20/24 08:03 Freq: NEEDED Status: Active Protocol: Document 04/20/24 11:30 MB (Rec: 04/20/24 11:55 MB [id number]) Physical Therapy Treatment Exercises Exercises Ankle Pumps Education Education Provided Safety M7 PT-IP Assessment and Plan Start: 04/20/24 08:03 Freq: NEEDED Status: Active Protocol: Document 04/20/24 11:30 MB (Rec: 04/20/24 11:55 MB [id number]) PT Summary Assessment and Plan Potential Rehabilitation Potential Good Status of Condition at Evaluation Evolving Summary Impairments Pain,Strength,Balance, Cognition,Bed Mobility, Transfers,Gait,Activity Tolerance Progress Towards Goals Slow Progress due to Activity Tolerance Assessment Summary Pt is a pleasant lady adm with recent landing on left knee getting into truck and she is s/p left TKR 12/25. She states she is supposed to have right TKR 05/08/24 at [facility]. She reports onset of N/V and right UQ pain and she has no pain during PT and mobility despite multiple times asked. Pt and live in and travel and are currently in [facility]. She will benefit from further gait and stair training. Goals Bed Mobility Goal Independent Transfer Goal Independent,Front Wheeled Walker Gait Goal Independent,Front Wheel Walker Gait Distance 100 Other Goals Pt will ascend 5 steps with left rail ascend to allow safe RV entrance. Days to Meet Goals 5 Frequency of Treatment Frequency Of Treatment Once a Day Treatment Plan Physical Therapy Treatment Plan Bed Mobility Training,Transfer Training,Gait Training, Therapeutic Exercise,Balance Retraining,Discharge Planning, Hot or Cold Pack,Neuromuscular Re-ed,Coordination Retraining ,Manual Therapy Weight Bearing Status Weight Bearing Status Weight Bear as Tolerated Recommendations To Nursing Amount of Assist Needed 1 Person Assist Discharge Recommendations PT Discharge Recommendations Home with Assistance Transportation Needs at Discharge Private Vehicle
--- NOTE | 2024-04-20 12:00 | OT.IP.EVAL ---
Past Medical History (Last Reviewed 04/20/24 @ 07:30 by Asher Wang MD) Actinic keratosis Bilateral knee pain Mmdy-Ltns-Ksxc syndrome (Unknown) Carpal tunnel syndrome (~2013) Diabetes (Unknown) GERD (gastroesophageal reflux disease) Greater trochanteric bursitis of both hips History of migraine headaches History of pneumonia (~2013) Hx of myocardial infarction (~2013) Hyperlipemia (Unknown) Hypertension (Unknown) Iliotibial band tendinitis of both sides 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 of insulin Lower back pain Medicare annual wellness visit, subsequent Medication side effect Preventative health care Pyelonephritis (~2013) Somatic dysfunction of lower extremity Vitamin D deficiency 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) Hx of cholecystectomy (Unknown) Hx of hysterectomy (Unknown) Hx of knee surgery (Unknown) Occupational Therapy Inpatient Evaluation/Re-Eval M1 PT/OT-IP Prior Functional Status Start: 04/20/24 08:03 Freq: NEEDED Status: Active Protocol: Document 04/20/24 12:00 [facility] (Rec: 04/20/24 12:36 [facility] [id number]) Medical Review Prior Functional Status Medical History Reviewed Yes Diet/Fluid Consistency Regular Communication WNLs Mobility and Gait Pt used AD for ambulation d/t knee pain and she has a RW and SPC Activities of Daily Living and IADL's Pt and live in [place] [facility] wheel and travel around and they are staying in [facility]. She had left TKR 12/25 and plans to have a right TKR Prior Functional Level (Other details) Assistance from as needed for ADLs Social History Household Members spouse Living Arrangements RV Number of Floors (Floors) One Floor Number of Stairs To Enter/Railing? 5 steps and left rail to enter Home Environment High Toilet,Walk in Shower Home Equipment Front Wheel Walker,Straight Cane Employment Status Retired Additional Social History Comment High bed, two step ups in a doorway in the camper M2 OT-IP Current Condition Start: 04/20/24 12:20 Freq: Status: Active Protocol: Document 04/20/24 12:00 [facility] (Rec: 04/20/24 12:36 [facility] [id number]) Occupational Therapy Current Condition Current Condition Evaluation Date 04/20/24 Treatment Diagnosis Dehydration, UTI, abdominal pain Diagnosis Onset Date 04/20/24 M3 OT- IP Subjective and Pain Start: 04/20/24 12:20 Freq: Status: Active Protocol: Document 04/20/24 12:00 [facility] (Rec: 04/20/24 12:36 [facility] [id number]) OT- Subjective Occupational Therapy Visit Type Type Initial Evaluation Visit Start Time 11:25 Visit Stop Time 12:03 Occupational Therapy Visit Comments Patient Comments Pt agreed to get up and wanting to use the bathroom. Patient/Caregiver Goals TO go home. OT Pain Assessment Pain When Pain Assessed At Rest Pain Present Pain Present Pain Reported Location abdomen Intensity 3 Scale Used Numeric (0 - 10) M4 OT- IP ADL's Start: 04/20/24 12:20 Freq: Status: Active Protocol: Document 04/20/24 12:00 [facility] (Rec: 04/20/24 12:36 [facility] [id number]) OT [id number] Comments OT Self-Feeding Comments Pt has not been had much of an appetite but states will try to eat lunch. OT ADL-Grooming General Evaluation Grooming Ability Standby Assistance Comments OT Grooming Comments set-up. OT ADL-Oral Care General Eval Oral Care Ability Independent OT ADL-Dressing Comments OT Dressing Comments Not performed. OT ADL-Toileting General Evaluation Toileting Ability Standby Assistance Comments OT Toileting Comments SBA and able to do. OT ADL-Bathing Comments OT Bathing Comments Pt will benefit from a shower chair. M5 OT- IP IADL's Start: 04/20/24 12:20 Freq: Status: Active Protocol: Document 04/20/24 12:00 [facility] (Rec: 04/20/24 12:36 [facility] [id number]) OT-Instrumental Activities of Daily Living Deficits IADL Deficits Identified Deficits Home Safety Awareness Awareness of Need for Assistance at Home Good Awareness Home Safety Comments Pt is very fatigued and realizes that she will need assist at home. Meal Preparation Meal Preparation Caregiver Provides Assist Direct Support Professional Caregiver Direct Support Professional Caregiver Caregiver Provides Assist M6 OT- IP Functional Cognition Start: 04/20/24 12:20 Freq: Status: Active Protocol: Document 04/20/24 12:00 [facility] (Rec: 04/20/24 12:36 [facility] [id number]) Cognitive Factors Limiting Selfcare Function Cognitive Ability Level of Alertness Alert Patient Orientation Name,Age,Birthday,Month,Date, Year,Day of Week,Place, Situation Attention Span Ability Capable of Focused Attention, Capable of Sustained Attention Ability to Follow Commands Able to Follow One Step Commands Cognitive Comments Cognitive Assessment Comments Pt able to follow commands for ADL and mobility needs. Pt is very fatigued and noted a little tremulous at times. OT- Vision and Hearing OT- Vision Assessment Visual Acuity Glasses For Reading Visual Attentiveness WFL Occular Pursuits WFL M7 OT- IP Mobility and Balance Start: 04/20/24 12:20 Freq: Status: Active Protocol: Document 04/20/24 12:00 [facility] (Rec: 04/20/24 12:36 [facility] [id number]) OT- Bed Mobility Assessment Supine to Sit Supine to Sit Assist Standby Assistance OT-Transfer Assessment Sit to and From Stand Sit to and from Stand Contact Guard Assistance Transfers Transfer Ability Contact Guard Assistance Technique Transfer Destination Bed,Chair,Toilet Transfer Technique Stand Step Pivot Devices Transfer Assistive Devices Gait Belt,Front Wheeled Walker Comments Mobility Comments CGA with the FWW for safety and a little unsteady on her feet at this time due to fatigue. OT- Balance Assessment Sitting Balance and Reactions Static Sitting Balance Ability Good Dynamic Sitting Balance Ability Good Standing Balance and Reactions Static Standing Balance Ability Good Dynamic Standing Balance Ability Fair M8 OT- IP Objective Assessments Start: 04/20/24 12:20 Freq: Status: Active Protocol: Document 04/20/24 12:00 [facility] (Rec: 04/20/24 12:36 [facility] [id number]) OT Gross Range of Motion Upper Extremity Range of Motion Assessment Within Functional Limits OT Strength Comments Strength Comments Pt grossly 4/5 throughout. M9 OT- IP Assessment and Plan Start: 04/20/24 12:20 Freq: Status: Active Protocol: Document 04/20/24 12:00 [facility] (Rec: 04/20/24 12:36 [facility] [id number]) OT Summary Assessment and Plan Potential Rehabilitation Potential Good Analytic Complexity at Evaluation Moderate Summary OT Impairments Pain,Strength,Balance, Functional Mobility,Grooming, Dressing,Toileting,Bathing, Toilet Transfers,Shower Transfers,Activity Tolerance Progress Towards Goals Slow Progress due to Medical Issues,Slow Progress due to Activity Tolerance Assessment Summary Pt Mod complexity and main barriers are pain, fatigue, decreased strength and activity tolerance. Pt has a supportive family to assist when medically stable. Goals Grooming Goal Independent Dressing Goal Independent Toileting Goal Independent Bathing Goal Standby Assistance Toilet Transfer Goal Independent Shower Transfer Goal Independent Days to Meet Goals 7 Frequency of Treatment Frequency Of Treatment Once a Day Treatment Plan OT Treatment Plan ADL Training,Functional Mobility,Patient/Family Education,Discharge Planning Discharge Recommendations OT Discharge Recommendations Home with Assistance Transportation Needs at Discharge Private Vehicle
--- NOTE | 2024-04-20 15:03 | CM.DANOTE ---
Patient is a 78 yo female who was admitted INPT Status on 04/20/24 for Hypercalcemia/CINTHYA/dehydration. Pt has [employer] [facility] under [employer] for insurance and her PCP is Dr. Chandler Roman. EMR was reviewed. Per MD, pt with hx of DM, chronic pain and admitted for fluids and labs and likely need a couple days before stable for discharge. MD to order additional imaging to r/o any possible tumor of the kidney. Per PT/OT, recommend likely d/c with spouse assist. SW met bedside with pt and spouse and explained role and they confirm they lives in their 5th wheel that is currently at [facility] and they have traveled and been in their RV for about the past 10 years. They are retired and have a Dtr and her family in [place] and a son and his family in [place]. Pt is independent with ADLs at baseline but uses a FWW or cane for stability at baseline. Pt confirms that she is below baseline with feeling weak/fatigued but states she already is feeling better. Pt has a hx of knee surgery in December with Dr. Wilson and was able to d/c back home to her RV without needs and has upcoming left total knee surgery next month. Pt denies any hx of HH or SNF. Currently pt and spouse anticipate discharge back to their RV and spouse can assist and do not expect any needs. Plan: SW to follow for further PT/OT to confirm safe d/c home to RV with spouse assist and any further identified discharge planning needs and if imaging results show further CA processes. ANTHONY Wahl Discharge Planning/Care Management CM Discharge Assessment Start: 04/20/24 14:49 Freq: Status: Active Protocol: Document 04/20/24 14:50 BF (Rec: 04/20/24 15:02 BF [id number]) Discharge Planning Assessment Assigned [employer] ANTHONY Lua DPOA/Assigned Designee Name spouse Micheal Contact Information [phone] Advance Directives? No Advance Directives on File No History Provided By Patient,Medical Record Has Patient been admitted in last 30 No days? Prior Living Arrangements RV Household Members spouse Type of transporation used prior to Drives own vehicle admit Independent with ADL's Yes Is patient alert and oriented? Yes Caregiver for Another No DME Already Rented / Owned FWW / Walker,Cane Barriers to Discharge No Discharge Plan Home Transportation Arrangement spouse bedside and plans to transport Referrals Initiated None needed Additional Comment Pending further PT/OT Whiteboard Updated in Patient Room with Yes name and ext. # of [employer] Review Status In Process Please Provide Date Initial DC 04/20/24 Assessment Was Performed Next Review Type Continued Stay Review
[2024-04-20 19:46] LABS: BUN Creatinine Ratio 32.4 (6-22); Blood Urea Nitrogen 33 mg/dL (7-17); Calcium 9.2 mg/dL (8.4-10.2); Carbon Dioxide 18 mmol/L (22-32); Chloride 114 mmol/L (98-107); Estimated Glomerular Filt Rate 57 mL/min (>60); Glucose 144 mg/dL (80-110); HEMOLYSIS 15 (0-50); Potassium 3.4 mmol/L (3.4-5.1); Sodium 140 mmol/L (137-145)
[2024-04-20] MEDS: ATORVASTATIN 20 MG TABLET 10 MG PO (21:06)
[2024-04-20] MEDS: TRAMADOL 50 MG TABLET PO (21:07)
[2024-04-21] MEDS: MAG HYDROX/ALUMINUM/SIMETH SUS 20 ML, LIDOCAINE VISCOUS 2% 15 ML PO (00:04)
[2024-04-21 05:02] VITALS: BP 129/48; PULSE 72; RESP 16; TEMP 35.9; O2SAT 95
[2024-04-21] MEDS: cefTRIAXone 1,000 MG in SODIUM CHLORIDE 0.9% 100 ML 200 MG IV (05:41)
[2024-04-21] MEDS: SODIUM CHLORIDE 0.9% 1,000 ML 125 ML IV (05:43)
[2024-04-21 08:22] LABS: Magnesium 1.4 mg/dL (1.6-2.3)
[2024-04-21 09:00] VITALS: BP 113/47; PULSE 74; RESP 16; TEMP 36.7; O2SAT 96
[2024-04-21] MEDS: AMLODIPINE 5 MG TABLET 10 MG PO (09:52)
[2024-04-21] MEDS: CHOLECALCIFEROL (VITAMIN D3) 1,000 UNIT TABLET 1000 UNIT PO (09:52)
[2024-04-21] MEDS: MULTIVITAMIN 1 TABLET 1 TAB PO (09:52)
[2024-04-21] MEDS: MAGNESIUM CHLORIDE 64 MG TABLET 128 MG PO (09:53)
[2024-04-21] MEDS: hydroCHLOROthiazide 25 MG TABLET PO (09:53)
[2024-04-21] MEDS: TRAMADOL 50 MG TABLET PO ×2 (09:53→22:42)
[2024-04-21 10:06] LABS: BUN Creatinine Ratio 22.3 (6-22); Blood Urea Nitrogen 21 mg/dL (7-17); Calcium 8.2 mg/dL (8.4-10.2); Carbon Dioxide 21 mmol/L (22-32); Chloride 115 mmol/L (98-107); Estimated Glomerular Filt Rate > 60 mL/min (>60); Glucose 129 mg/dL (80-110); HEMOLYSIS < 15 (0-50); Potassium 3.6 mmol/L (3.4-5.1); Sodium 141 mmol/L (137-145)
--- NOTE | 2024-04-21 11:14 | PT.IPTN ---
Current Diagnoses Urinary tract infection, site not specified (04/20/24) Physical Therapy Treatment Note M2 PT-IP Current Condition Start: 04/20/24 08:03 Freq: NEEDED Status: Active Protocol: Document 04/20/24 11:30 MB (Rec: 04/20/24 11:55 MB [id number]) Physical Therapy Current Condition Current Condition Evaluation Date 04/20/24 Treatment Diagnosis RUQ pain, N/V, all over pain, recent slid on left TKR getting in truck M3 PT-IP Subjective Start: 04/20/24 08:03 Freq: NEEDED Status: Active Protocol: Document 04/21/24 11:40 TS (Rec: 04/21/24 11:54 TS [id number]) Subjective Physical Therapy Visit Type Type Treatment Note Visit Start Time 11:14 Visit Stop Time 11:37 Number of ROUNDHOUSE WORKER Visits 1 Physical Therapy Visit Comments Patient Comments Pt found resting, reports burning in her stomach when she eats, is agreeable to PT. M4 PT-IP Mobility and Gait Start: 04/20/24 08:03 Freq: NEEDED Status: Active Protocol: Document 04/21/24 11:40 TS (Rec: 04/21/24 11:54 TS [id number]) PT-Bed Mobility Assessment Rolling Type of Rolling Roll to Left Level of Assist Standby Assistance Supine to Sit Supine to Sit Standby Assistance,Head of Bed Elevated Sit to Supine Sit to Supine Standby Assistance Scooting Scooting to Edge of Bed Standby Assistance Scooting Up and Down in Bed Standby Assistance PT-Transfer Assessment Sit to and From Stand Sit to and from Stand Standby Assistance,Use of Upper Extremities Equipment Transfer Assistive Device Gait Belt,Front Wheeled Walker Orthotic/Prosthetic Devices or Brace: No Comments Mobility Comments Supine to sit SBA with BUE support and logroll to L side. R knee brace donned prior to gait. She ambulated ~250'SBA / CGA with FWW, reports some knee pain and weakness by end of ambulation. She performed stairs x3 with single rail sidestepping CGA, she descends steps backwards. She ambulated back to room, was left in bed, nurse tending to needs. Gait Assessment Gait Gait Assistance Required: Standby Assistance,Contact Guard Assist Distance (Feet) 250 Able to Maintain Weight Bearing Status Yes During Gait Assistive Devices Assistive Device Gait Belt,Front Wheeled Walker Orthotic/Prosthetic Devices or Brace: No Gait Deviations General Gait Pattern Antalgic,Decreased Stride Length,Decreased Feet Clearance,Flexed Trunk Factors Limiting Gait Function Factors Limiting Gait Function Decreased Activity Tolerance, Poor Balance Comments Gait Comments See mobility comments Stair Climbing Assessment Evaluation Level of Assist On Stairs Standby Assistance,Contact Guard Assistance,1 Person Assistance Devices Stair Climbing Assistive Devices Left Railing Technique/Endurance Stair Climbing Direction Ascend and Descend Stair Climbing Technique Step to Step Number of Steps Climbed 3 PT-Balance Assessment Sitting Balance and Reactions Static Sitting Balance Ability Good Dynamic Sitting Balance Ability Good Standing Balance and Reactions Static Standing Balance Ability Good Dynamic Standing Balance Ability Fair Device Used RW M5 PT-IP Objective Assessments Start: 04/20/24 08:03 Freq: NEEDED Status: Active Protocol: Document 04/20/24 11:30 MB (Rec: 04/20/24 11:55 MB [id number]) Orientation Orientation/Cognition Level of Alertness Alert Orientation Name,Age,Birthday,Year,Place, Situation Language Function Ability No Deficits Noted Safety Awareness Decreased Safety Awareness Memory Description No Deficits Noted Comments Pt has some confusion initially about date and states 05/08/24, which it seems is her appointment date for surgery on right knee that will be at [facility] Range of Motion Upper Extremity ROM Impairments Defer to OT Lower Extremity ROM Assessment Within Functional Limits Strength Comments Strength Comments MMT deferred LEs d/t reports of history of knee pain and pt has functional strength with gait Muscle Tone Muscle Tone WNL Yes M6 PT-IP Treatment Start: 04/20/24 08:03 Freq: NEEDED Status: Active Protocol: Document 04/21/24 11:40 TS (Rec: 04/21/24 11:54 [id number]) Physical Therapy Treatment Education Education Provided Safety M7 PT-IP Assessment and Plan Start: 04/20/24 08:03 Freq: NEEDED Status: Active Protocol: Document 04/21/24 11:40 TS (Rec: 04/21/24 11:54 [id number]) PT Summary Assessment and Plan Potential Rehabilitation Potential Good Summary Impairments Pain,Strength,Balance, Cognition,Bed Mobility, Transfers,Gait,Activity Tolerance Progress Towards Goals Progressing Toward Goals Assessment Summary Emily is making progress with her mobility this session . She progressed her gait to ~ 250'SBA/CGA with FWW. She does report some pain and weakness in R knee at the end of ambulation. She progressed to stairs x3, had no buckling or LOB. Her activity tolerance is improving. PT is recommending home with assist. Goals Bed Mobility Goal Independent Transfer Goal Independent,Front Wheeled Walker Gait Goal Independent,Front Wheel Walker Gait Distance 100 Other Goals Pt will ascend 5 steps with left rail ascend to allow safe RV entrance. Days to Meet Goals 5 Frequency of Treatment Frequency Of Treatment Once a Day Treatment Plan Physical Therapy Treatment Plan Bed Mobility Training,Transfer Training,Gait Training, Therapeutic Exercise,Balance Retraining,Discharge Planning, Hot or Cold Pack,Neuromuscular Re-ed,Coordination Retraining ,Manual Therapy Weight Bearing Status Weight Bearing Status Weight Bear as Tolerated Recommendations To Nursing Amount of Assist Needed 1 Person Assist Discharge Recommendations PT Discharge Recommendations Home with Assistance Transportation Needs at Discharge Private Vehicle
[2024-04-21] MEDS: PANTOPRAZOLE DR 20 MG TABLET PO (11:39)
[2024-04-21] MEDS: MAG HYDROX/ALUM/SIMETH 30 ML UDC PO ×2 (11:39→17:26)
[2024-04-21] MEDS: INSULIN LISPRO 100 UNIT/ML 3ML VIAL SUBCUT ×2 (11:45→17:27)
[2024-04-21 12:00] VITALS: BP 109/53; PULSE 85; RESP 16; TEMP 36.4; O2SAT 97
--- NOTE | 2024-04-21 14:45 | OT.IP.TRT ---
Current Diagnoses Urinary tract infection, site not specified (04/20/24) Occupational Therapy Treatment Note M2 OT-IP Current Condition Start: 04/20/24 12:20 Freq: Status: Active Protocol: Document 04/20/24 12:00 [facility] (Rec: 04/20/24 12:36 [facility] [id number]) Occupational Therapy Current Condition Current Condition Evaluation Date 04/20/24 Treatment Diagnosis Dehydration, UTI, abdominal pain Diagnosis Onset Date 04/20/24 M3 OT- IP Subjective and Pain Start: 04/20/24 12:20 Freq: Status: Active Protocol: Document 04/21/24 14:57 [facility] (Rec: 04/21/24 15:05 [facility] [id number]) OT- Subjective Occupational Therapy Visit Type Type Treatment Note Visit Start Time 14:03 Visit Stop Time 14:45 Occupational Therapy Visit Comments Patient Comments Pt wanting to take a shower. Patient/Caregiver Goals To go home. OT Pain Assessment Pain When Pain Assessed At Rest Pain Present Pain Present Denied Pain M4 OT- IP ADL's Start: 04/20/24 12:20 Freq: Status: Active Protocol: Document 04/21/24 14:57 [facility] (Rec: 04/21/24 15:05 [facility] [id number]) OT HNP-Cujo-Dlozyvk General Evaluation Self-Feeding Ability Independent OT ADL-Grooming General Evaluation Grooming Ability Independent OT ADL-Oral Care General Eval Oral Care Ability Independent OT ADL-Dressing General Eval Lower Body Dressing Ability Standby Assistance OT ADL-Toileting General Evaluation Toileting Ability Independent OT ADL-Bathing Bathing Type Bathing Type Shower General Evaluation Bathing Ability Minimal Assistance Areas Needing Assistance Wash/Dry Upper Body Devices Bathing Equipment Hand Held Shower Sprayer, Shower Chair with Arms Comments OT Bathing Comments Pt able to do while seated and assist to wash and dry her back. Pt [place] the camp[place] as the bathroom are more accessible. M5 OT- IP IADL's Start: 04/20/24 12:20 Freq: Status: Active Protocol: Document 04/21/24 14:57 [facility] (Rec: 04/21/24 15:05 [facility] [id number]) OT-Instrumental Activities of Daily Living Home Safety Awareness Awareness of Need for Assistance at Home Good Awareness Ability to Problem Solve Emergency Able to Problem Solve Situations Home Safety Comments Pt aware to have her provide supervision as needed. Money Management Money Management Caregiver Provides Assistance Meal Preparation Meal Preparation Comments Pt will benefit from supervisions and assist as needed. Air Carrier Inspector Air Carrier Inspector Caregiver Provides Assist Driving Driving Comments Pt's has been driving. M6 OT- IP Functional Cognition Start: 04/20/24 12:20 Freq: Status: Active Protocol: Document 04/21/24 14:57 [facility] (Rec: 04/21/24 15:05 [facility] [id number]) Cognitive Factors Limiting Selfcare Function Cognitive Ability Level of Alertness Alert Patient Orientation Name,Age,Birthday,Month,Date, Year,Day of Week,Place, Situation Attention Span Ability Capable of Focused Attention, Capable of Sustained Attention Ability to Follow Commands Able to Follow Multi-Step Commands Memory Description No Deficits Noted Safety Awareness No Deficits Noted Cognitive Tests SLUMS Pt scored 30/30 on the SLUMS which implies normal for cognition. Pt however needing increased time to answer questions and at times answer too quickly and then having to change her answer. Cognitive Comments Cognitive Assessment Comments Pt able to follow commands for ADL and mobility needs with good safety. M7 OT- IP Mobility and Balance Start: 04/20/24 12:20 Freq: Status: Active Protocol: Document 04/21/24 14:57 [facility] (Rec: 04/21/24 15:05 [facility] [id number]) OT-Transfer Assessment Sit to and From Stand Sit to and from Stand Independent Transfers Transfer Ability Standby Assistance Technique Transfer Destination Bed,Chair,Toilet Transfer Technique Stand Step Pivot Devices Transfer Assistive Devices Front Wheeled Walker Comments Mobility Comments Distant SBA to independence for mobility in the room. close SBA while stepping over the threshold of the shower. OT- Balance Assessment Sitting Balance and Reactions Static Sitting Balance Ability Normal Dynamic Sitting Balance Ability Normal Standing Balance and Reactions Static Standing Balance Ability Good Dynamic Standing Balance Ability Good M8 OT- IP Objective Assessments Start: 04/20/24 12:20 Freq: Status: Active Protocol: Document 04/20/24 12:00 [facility] (Rec: 04/20/24 12:36 [facility] [id number]) OT Gross Range of Motion Upper Extremity Range of Motion Assessment Within Functional Limits OT Strength Comments Strength Comments Pt grossly 4/5 throughout. M9 OT- IP Assessment and Plan Start: 04/20/24 12:20 Freq: Status: Active Protocol: Document 04/21/24 14:57 [facility] (Rec: 04/21/24 15:05 [facility] [id number]) OT Summary Assessment and Plan Potential Rehabilitation Potential Good Analytic Complexity at Evaluation Moderate Summary OT Impairments Balance,Functional Mobility, Bathing Progress Towards Goals Progressing Toward Goals Assessment Summary Pt close to her baseline and no further OT needs at this time, discharge pt for OT services. Pt has a supportive family to assist her at home. Frequency of Treatment Frequency Of Treatment Discharge Discharge Recommendations OT Discharge Recommendations Home with Assistance Transportation Needs at Discharge Private Vehicle
--- NOTE | 2024-04-21 14:46 | PM.PN.1 ---
Subjective Subjective Interval history: Labs are improved, though patient reporting sharp abdominal pain, epigastric that radiates primarily to the back. Previous lipase was 55. Seems to happen after meals. Started PPI, will trial maalox. 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 Exam Vital Signs (past 8 hours): - 04/21/24 09:00 Temperature 98.0 F Pulse Rate 74 Respiratory Rate 16 Blood Pressure 113/47 L Pulse Oximetry 96 Oxygen Delivery Method Room Air Oxygen Flow Rate 0 Narrative Exam Narrative: NAD, alert and oriented, fluent speech, calm. She appears somewhat fatigued but is sitting up in a chair. Normocephalic skull, EOMI, anicteric sclera, symmetric pupils. Oropharynx unremarkable, no droop. Neck supple, midline trachea, no adenopathy. Lungs clear, normal rate and effort. Heart regular, no murmur gallop or rub. Abdomen is soft, non distended and non tender. Extremities are free of edema. Skin is free of rash or lesions. Joints are not swollen or deformed. Judgment appears to be normal. 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 Preventative health care GERD (gastroesophageal reflux disease) History of migraine headaches Actinic keratosis Medication side effect Greater trochanteric bursitis of both hips Iliotibial band tendinitis of both sides Somatic dysfunction of lower extremity Bilateral knee pain Medicare annual wellness visit, subsequent Vitamin D deficiency History of pneumonia (~2013) Carpal tunnel syndrome (~2013) Twtr-Xkls-Nvtr syndrome (Unknown) Pyelonephritis (~2013) Hx of myocardial infarction (~2013) Hyperlipemia (Unknown) Hypertension (Unknown) Diabetes (Unknown) Surgical History History of back surgery (Unknown) Hx of knee surgery (Unknown) Hx of hysterectomy (Unknown) Hx of cholecystectomy (Unknown) 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 Acute metabolic encephalopathy. Present on admission and improved. Most likely multifactorial due to hypercalcemia, dehydration, acute kidney injury and possible UTI. CT of the head negative. -Can stop IV fluids now. Calcium now improved. Was also on HCTZ have stopped this. -Hold on on any medications affecting her mentation. 2. Hypercalcemia from uncertain etiology. Present on admission and improved. Calcium is 8.2 today. Likely dehydration and combination with HCTZ. - calcium now improved. - PTH levels are send out, currently awaiting results. - will stop HCTZ, stop fluids today. 3. Acute kidney injury. Present on admission and active. Creatinine is 1.11. Creatinine 1.25 from 0.9. Most likely prerenal. -IV fluids, 4. Electrolyte derangements including hypokalemia and hypomagnesemia. Present on admission and active. Mg 1.4 today. -Replace and monitor daily. Repleted Mg today. -Hold diuretics as noted above. Hold Miguel inhibition as well, 5. acute cystitis. Present on admission and active. The patient is asymptomatic. UA is not so convincing. She was given ceftriaxone 1 g IV in the ED. -Follow-up on the urine cultures -continue ceftriaxone. 6. Right kidney hypodense exophytic focus arising from the right kidney with concern for malignancy.Present on admission and active. -renal MRI was ordered by admitting physician. Results were re-assuring though there was motion artifact imaging was mostly consistent with hemorrhagic cyst. Recommended repeat imaging in [address] 7. Diabetes mellitus type 2, insulin-dependent. Present on admission and active. -ADA diet, monitor blood sugar ACHS, -Have held her home lantus as of this morning, remains on sliding scale only as Am glucose off of lantus was in the low 100s today. 8. Hypertension. Present on admission and active. Hold losartan and hydrochlorothiazide for now due to CINTHYA. BP 121/57. 9. Hyperlipidemia. Present on admission and active. - continue home atorvastatin 10. Chronic right knee pain. Present on admission and active. - Hold on any opioids due to confusion for now. Tylenol as needed. 11. Abdominal pain - unclear pain etiology at this time, differential includes from her renal cyst, less likely pancreatitis given normal lipase at this time and improvement, also includes gastritis. Trial PPI and maalox plus today. PLAN: -replace electrolytes as needed. -work on controlling abdominal pain to improve ability to tolerate oral intake, and avoid dehydration leading to her presenting hypercalcemia. -hold HCTZ -start PPI -continue to hold home lantus, resume if blood sugars increasing. Code: Full surrogate is patient's spouse Dispo: Likely home tomorrow if improved PO intake Time-Based Coding :: [TOTAL MINUTES] spent with patient and on the chart (including review of chart, obtaining history, exam, reviewing outside data, placing orders, documenting exam and treatment plan, and counseling patient) on [DATE]. Quality VTE Deep Vein Thrombosis/Pulmonary Embolism Present on Admission: No
--- NOTE | 2024-04-21 14:51 | CM.DPC ---
DCP Continued: Reviewed EMR and team rounds for pt?s medical status. Per hospitalist, pt is being monitored for abdominal pain, could push discharge to another day. Plan: Anticipating discharge with spouse back to in 1-2 days when medically stable and pain managed. CM Team will continue to follow for coordination of discharge plans. GABRIEL Yen
[2024-04-21 16:00] VITALS: BP 119/53; PULSE 78; RESP 16; TEMP 36.6; O2SAT 95
--- NOTE | 2024-04-21 17:37 | PC.NURSE ---
Assumed care of patient @1530 from DANAE Lorenzo. Pt A&Ox4, VS WNL, BG 132, lung sounds clear/regular on RA, heart sounds regular, CMS intact in all four extremities, skin intact (loose), bowel sounds active x4, HEENT WNL, NO burning or pain with voiding despite presence of UTI. LW IV intact and patent, NS locked. Tele d/c'ed per MD order. Care continues.
[2024-04-21 19:40] LABS: Calcium 10.6 mg/dL (8.7-10.3); Parathyroid Hormone, Intact 9 pg/mL (15-65)
[2024-04-21 20:30] VITALS: BP 121/49; PULSE 80; RESP 17; TEMP 36.3; O2SAT 97
[2024-04-21] MEDS: ATORVASTATIN 20 MG TABLET 10 MG PO (21:11)
[2024-04-21] MEDS: SODIUM CHLORIDE 0.9% FLUSH 10 ML IV (21:11)
--- NOTE | 2024-04-21 21:36 | PC.NURSE ---
Patient is alert and oriented. Breath sounds CTA with RA sat of 97%;declined use of continuous oximetry. HRR. Denied nausea. BT present and abdomen is soft; had BM earlier today. Denies dysuria, frequency or urgency with urination. Is independent with bed mobility and is provided SBA when walking with walker as safety precaution. Reports weakness in legs but states she is much improved from on admit. Denies pain. Discussed SCD's with patient but she politely declined stating she didn't feel she needed them. Fall risk score is high and bed alarm is activated.
[2024-04-22 04:00] VITALS: BP 136/88; PULSE 84; RESP 17; TEMP 36.5; O2SAT 96
[2024-04-22] MEDS: PANTOPRAZOLE DR 20 MG TABLET PO (06:07)
[2024-04-22] MEDS: cefTRIAXone 1,000 MG in SODIUM CHLORIDE 0.9% 100 ML 200 MG IV (06:07)
[2024-04-22] MEDS: SODIUM CHLORIDE 0.9% FLUSH 10 ML IV ×2 (06:08→09:15)
--- NOTE | 2024-04-22 09:00 | PT.IPTN ---
Current Diagnoses Urinary tract infection, site not specified (04/20/24) Physical Therapy Treatment Note M2 PT-IP Current Condition Start: 04/20/24 08:03 Freq: NEEDED Status: Active Protocol: Document 04/20/24 11:30 [facility] (Rec: 04/20/24 11:55 [facility] [id number]) Physical Therapy Current Condition Current Condition Evaluation Date 04/20/24 Treatment Diagnosis RUQ pain, N/V, all over pain, recent slid on left TKR getting in truck M3 PT-IP Subjective Start: 04/20/24 08:03 Freq: NEEDED Status: Active Protocol: Document 04/22/24 09:32 TS (Rec: 04/22/24 09:39 TS [id number]) Subjective Physical Therapy Visit Type Type Treatment Note Visit Start Time 09:00 Visit Stop Time 09:23 Number of TAPER AND FLOATER Visits 2 Physical Therapy Visit Comments Patient Comments Pt found resting in bed, reports she did eat some breakfast this morning with no pain, she is agreeable to PT. M4 PT-IP Mobility and Gait Start: 04/20/24 08:03 Freq: NEEDED Status: Active Protocol: Document 04/22/24 09:32 [facility] (Rec: 04/22/24 09:39 TS [id number]) PT-Bed Mobility Assessment Rolling Type of Rolling Roll to Left Level of Assist Independent Supine to Sit Supine to Sit Independent,Head of Bed Elevated Sit to Supine Sit to Supine Independent Scooting Scooting to Edge of Bed Independent Scooting Up and Down in Bed Independent PT-Transfer Assessment Sit to and From Stand Sit to and from Stand Standby Assistance Equipment Transfer Assistive Device Gait Belt,Front Wheeled Walker Orthotic/Prosthetic Devices or Brace: No Comments Mobility Comments Pt is Ind for all bed mobility . She dons R knee brace prior to mobility. STS from bed SBA with FWW. She ambulated to toilet ~10'SBA with FWW. She ambulated in hallway ~250'SBA with a step thru gait with FWW . She performs stairs x3 with SBA with single rail step over step. Back in room pt performed quad, heel slides, SLR and bridge. Pt was left in room, all needs met. Gait Assessment Gait Gait Assistance Required: Standby Assistance Distance (Feet) 250 Able to Maintain Weight Bearing Status Yes During Gait Assistive Devices Assistive Device Gait Belt,Front Wheeled Walker Orthotic/Prosthetic Devices or Brace: No Gait Deviations General Gait Pattern Antalgic,Decreased Stride Length,Decreased Feet Clearance,Flexed Trunk Factors Limiting Gait Function Factors Limiting Gait Function Decreased Activity Tolerance, Poor Balance Comments Gait Comments See mobility comments Stair Climbing Assessment Evaluation Level of Assist On Stairs Standby Assistance Devices Stair Climbing Assistive Devices Left Railing Technique/Endurance Stair Climbing Direction Ascend and Descend Stair Climbing Technique Step to Step Number of Steps Climbed 3 PT-Balance Assessment Sitting Balance and Reactions Static Sitting Balance Ability Normal Dynamic Sitting Balance Ability Normal Standing Balance and Reactions Static Standing Balance Ability Good Dynamic Standing Balance Ability Good Device Used FWW M5 PT-IP Objective Assessments Start: 04/20/24 08:03 Freq: NEEDED Status: Active Protocol: Document 04/20/24 11:30 [facility] (Rec: 04/20/24 11:55 [facility] [id number]) Orientation Orientation/Cognition Level of Alertness Alert Orientation Name,Age,Birthday,Year,Place, Situation Language Function Ability No Deficits Noted Safety Awareness Decreased Safety Awareness Memory Description No Deficits Noted Comments Pt has some confusion initially about date and states 05/08/24, which it seems is her appointment date for surgery on right knee that will be at [facility] Gross Range of Motion Upper Extremity ROM Impairments Defer to OT Lower Extremity ROM Assessment Within Functional Limits Strength Comments Strength Comments MMT deferred LEs d/t reports of history of knee pain and pt has functional strength with gait Muscle Tone Muscle Tone WNL Yes M6 PT-IP Treatment Start: 04/20/24 08:03 Freq: NEEDED Status: Active Protocol: Document 04/22/24 09:32 [facility] (Rec: 04/22/24 09:39 TS [id number]) Physical Therapy Treatment Exercises Exercises Quad Sets,Heel Slides,Straight Leg Raises Education Education Provided Safety M7 PT-IP Assessment and Plan Start: 04/20/24 08:03 Freq: NEEDED Status: Active Protocol: Document 04/22/24 09:32 [facility] (Rec: 04/22/24 09:39 TS [id number]) PT Summary Assessment and Plan Potential Rehabilitation Potential Good Summary Impairments Pain,Strength,Balance, Cognition,Bed Mobility, Transfers,Gait,Activity Tolerance Progress Towards Goals Progressing Toward Goals Assessment Summary Emily continues to do well with her mobility. She continues to ambulate ~250'SBA with FWW. She does report some weakness in Le's with gait. She was educated in ther -ex of quad set, SLR, heel slides and bridge. She toelrated ther-ex well. PT is recommending home with assist. Goals Bed Mobility Goal Independent Transfer Goal Independent,Front Wheeled Walker Gait Goal Independent,Front Wheel Walker Gait Distance 100 Other Goals Pt will ascend 5 steps with left rail ascend to allow safe RV entrance. Days to Meet Goals 5 Frequency of Treatment Frequency Of Treatment Once a Day Treatment Plan Physical Therapy Treatment Plan Bed Mobility Training,Transfer Training,Gait Training, Therapeutic Exercise,Balance Retraining,Discharge Planning, Hot or Cold Pack,Neuromuscular Re-ed,Coordination Retraining ,Manual Therapy Weight Bearing Status Weight Bearing Status Weight Bear as Tolerated Recommendations To Nursing Amount of Assist Needed Standby Assistance Discharge Recommendations PT Discharge Recommendations Home with Assistance Transportation Needs at Discharge Private Vehicle
[2024-04-22] MEDS: MULTIVITAMIN 1 TABLET 1 TAB PO (09:14)
[2024-04-22] MEDS: AMLODIPINE 5 MG TABLET 10 MG PO (09:14)
[2024-04-22] MEDS: CHOLECALCIFEROL (VITAMIN D3) 1,000 UNIT TABLET 1000 UNIT PO (09:14)
[2024-04-22 09:51] LABS: Magnesium 1.5 mg/dL (1.6-2.3)
[2024-04-22] MEDS: MAGNESIUM CHLORIDE 64 MG TABLET 128 MG PO (10:56)
[2024-04-22 11:00] VITALS: BP 107/45; PULSE 73; RESP 16; TEMP 36.8; O2SAT 99
--- NOTE | 2024-04-22 11:55 | PM.DS.1 ---
History of Present Illness History of Present Illness Date Patient Seen: 04/22/24 Time Patient Seen: 11:55 Chief complaint: knee px, abd px, headache Narrative: From night doctor: 78 years old female with history of hypertension, hyperlipidemia, insulin-dependent diabetes, chronic pain presented to the ER with right upper quadrant abdominal pain, knee pain and altered mental status. The patient is poor historian but does report the pain was going on for over a week. Described as right upper quadrant, comes and goes, nonradiating, severe, relieved by pain medications, associated with some nausea and vomiting. She also reported poor appetite and feeling thirsty. Compliant with her home medications. Laboratory shows WBC 11.7, pH 7.58, pCO2 20.6, potassium 3.2, creatinine 125, blood sugar 158, lactic acid 2.4, calcium 13.1, AST 74, ALT 36, lipase 55, U tox positive for opioids, respiratory viral panel negative, procalcitonin 0.074. CT of the head and chest x-ray unremarkable. Abdominal CT scan shows hypodense exophytic focus arising from the right kidney could represent hyperdense cysts. In the ER she was given ceftriaxone 1 g IV, calcitonin, NS 2 L, magnesium 2 g IV, morphine 4 mg IV, droperidol 2.5 mg IV. S: She presents with a one-week history of weakness. She was found to be hypercalcemic in the ED and was given calcitonin and IV fluids. She also had an UTI and was given ceftriaxone. Imaging indicated a possible right kidney mass. Her daughter's recently had surgery for hyperparathyroidism. She has no personal history of hypercalcemia. Her right anterior pain has improved and resolved since her arrival. She has a history of cholecystectomy in her liver function tests were fairly unremarkable. No recent fevers, or chills. No nausea, and vomiting. Discharge Providers Provider Date of admission: 04/20/24 02:33 Discharge Date: 04/22/24 Primary care physician: Chandler Roman DO Consults: 04/20/24 02:55 Consult to Occupational Therapy Evaluate & Treat Comment: Physician Instructions: Evaluate and treat Consult to Physical Therapy Evaluate & Treat Comment: Physician Instructions: Evaluate and Treat Discharge provider: Franco Garland DO Summary Hospital Course Discharge Diagnosis: 1. Sepsis with Acute metabolic encephalopathy, CINTHYA secondary to acute cystitis. Present on admission and improved. 2. Hypercalcemia, resolved 3. Electrolyte derangements including hypokalemia and hypomagnesemia. Present on admission and active. 4. Right kidney hypodense exophytic focus arising from the right kidney 5. Diabetes mellitus type 2, insulin-dependent. Present on admission and active. 6. Hypertension. Present on admission and active. 7. Hyperlipidemia. Present on admission and active. 8. Chronic right knee pain. Present on admission and active. 9. Abdominal pain, improved 10. History of distal pancreatectomy. Hospital Course: This is a 78 year old female with PMH of DM2, HTN, HLD who was admitted with hypercalcemia and an acute metabolic encephalopathy. She was also found to have probable acute cystitis. Given encephalopathy and CINTHYA her SOFA score is 2 and consistent with sepsis that was present on admission. Her mentation improved with fluids and ceftriaxone, as did her calcium levels. Her PTH levels were appropriately low. Her hypercalcemia was likely related to dehydration and HCTZ use. Her home HCTZ was stopped due to her presenting hypercalcemia. She also had hypokalemia and hypomagnesemia which were repleted while in the hospital. Imaging also showed a right kidney lesion on CT. MR abdomen was performed and though limited by motion is most consistent with renal cyst, repeat imaging is recommended in 6 months per radiologist reading the study. She completed 3 days of ceftriaxone during her hospital stay for acute cystitis. She continued to have abdominal pain and decreased appetite, but improved with PPI and maalox administration and is presumed secondary to mild gastritis, cystitis, or possibly her renal cyst. No melena or hematochezia was noted during her stay. She was discharged home after therapy evaluations and improvement. She was tolerating a diet at the time of discharge. Of note with her diabetes, her glucose levels were controlled without long acting insulin and only sliding scale insulin ordered. With return home, her home long acting insulin was recommended to be cut to 5 U from 30, and to increase based on dietary improvement and blood glucose levels at home. Ideally PCP follow up should occur early next week for repeat assessment after discharge. Her home losartan was also held on discharged as her BP was low normal only on home amlodipine. Blood pressure medications may need to be restarted depending on BP monitoring as an outpatient. Time Spent with Patient Time spent: Greater than 30 minutes Exam Vital Signs (past 8 hours): - 04/22/24 04:00 Temperature 97.7 F Pulse Rate 84 Respiratory Rate 17 Blood Pressure 136/88 Pulse Oximetry 96 Oxygen Flow Rate 0 Oxygen Delivery Method Room Air Oxygen Flow Rate 0 Narrative Exam Narrative: NAD, alert and oriented, fluent speech, calm. She appears somewhat fatigued but is sitting up in the bed. Normocephalic skull, EOMI, anicteric sclera, symmetric pupils. Oropharynx unremarkable, no droop. Neck supple, midline trachea, no adenopathy. Lungs clear, normal rate and effort. Heart regular, no murmur gallop or rub. Abdomen is soft, non distended and non tender. Extremities are free of edema. Skin is free of rash or lesions. Joints are not swollen or deformed. Judgment appears to be normal. 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 Preventative health care GERD (gastroesophageal reflux disease) History of migraine headaches Actinic keratosis Medication side effect Greater trochanteric bursitis of both hips Iliotibial band tendinitis of both sides Somatic dysfunction of lower extremity Bilateral knee pain Medicare annual wellness visit, subsequent Vitamin D deficiency History of pneumonia (~2013) Carpal tunnel syndrome (~2013) Xxfh-Nnxj-Ikqt syndrome (Unknown) Pyelonephritis (~2013) Hx of myocardial infarction (~2013) Hyperlipemia (Unknown) Hypertension (Unknown) Diabetes (Unknown) Surgical History History of back surgery (Unknown) Hx of knee surgery (Unknown) Hx of hysterectomy (Unknown) Hx of cholecystectomy (Unknown) 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) Family History Child Age: 56 Udou-Ssar-Jpqq syndrome Father Alzheimer disease Mother Lung cancer Social History household members: spouse Smoking Status: Never smoker second hand exposure: No alcohol intake: current substance use type: does not use Discharge Plan Discharge Plan Patient Disposition: Home Provider Discharge Comment: You were admitted to the hospital with elevated calcium and dehydration. HCTZ has been stopped due to the high calcium level. parathyroid levels are appropriate and not consistent with hyperparathyroidism. You did have a likely kidney cyst, though repeat imaging is recommended in 6 months to monitor. For now recommend dramatic cut in your lantus use, until appetite improves a bit more. Continue nausea relief with zofran. Discharge orders & Medications Prescriptions: New pantoprazole 20 mg tablet,delayed release (DR/EC) 20 mg PO DAILY 14 Days Qty: 14 0RF ondansetron HCl 4 mg tablet 4 mg PO Q8H PRN (Reason: nausea and vomiting) 30 Days Qty: 30 0RF Continued VITAMIN B COMPLEX 1 cap PO QDAY Qty: 0 FOLIC ACID/VIT A/VIT B1/VIT (#MULTIVITAMIN) 1 tab PO QDAY Qty: 0 (DME) Blood Glucose Test Strip See Rx Instructions .ROUTE .MEDSUPPLY Qty: 400 3RF Rx Instructions: Use to test blood glucose FOUR TIMES DAILY. albuterol sulfate 90 mcg/actuation HFA aerosol inhaler 2 puff PO Q4-6H PRN (Reason: for wheezing) Qty: 8.5 0RF Rx Instructions: Need appointment for further refills 12/28/23 amlodipine 10 mg tablet 10 mg PO QDAY Qty: 90 3RF atorvastatin [Lipitor] 10 mg tablet 10 mg PO HS Qty: 90 3RF potassium chloride 10 mEq capsule, extended release 10 meq PO DAILY Qty: 90 3RF lancets [OneTouch Delica Plus Lancet] 30 gauge misc See Rx Instructions .ROUTE .COMPLEX Qty: 400 2RF Dose Instruction: USE TO TEST BLOOD SUGAR FOUR TIMES DAILY Rx Instructions: USE TO TEST BLOOD SUGAR FOUR TIMES DAILY (DME) Disabled Parking Permit Qty: 1 0RF Rx Instructions: As directed cholecalciferol (vitamin D3) 25 mcg (1,000 unit) capsule 25 mcg PO DAILY (DME) [place] 0 .Route .MEDSUPPLY Qty: 100 3RF Dose Instruction: As directed Rx Instructions: Use to inject insulin daily. generic pen needles. [id number] () GRN tramadol 50 mg tablet 50 mg PO BID PRN (Reason: pain) Qty: 30 0RF sumatriptan succinate [Imitrex] 50 mg tablet 50 mg PO PRN Qty: 9 2RF (DME) pen needle, diabetic [TechLITE Pen Needle] 32 gauge x 5/32 needle See Rx Instructions .ROUTE DAILY Qty: 1200 Rx Instructions: As directed Changed insulin glargine [Lantus Solostar U-100 Insulin] 100 unit/mL (3 mL) insulin pen 5 unit SUBCUT DAILY Qty: 3 0RF Rx Instructions: ADMINISTER 30 UNITS UNDER THE SKIN EVERY EVENING Discontinued hydrochlorothiazide 25 mg tablet 25 mg PO QDAY Qty: 90 3RF losartan 50 mg tablet 50 mg PO BID Qty: 180 3RF Follow up/Referrals: Chandler Roman, [Primary Care Provider] - Diet/Activity/Treatments Diet: Diet as Tolerated and Regular Activity: As tolerated Visit Report/Discharge Packet Stand Alone Forms: Patient Portal/API, Stroke Signs & Symptoms Discharge Data Primary Care Provider: Chandler Roman Quality VTE Deep Vein Thrombosis/Pulmonary Embolism Present on Admission: No
--- NOTE | 2024-04-22 12:26 | CM.DPNOTE ---
DCP Note DOGMAN/WOMAN reviewed EMR. Per hospitalist, pt cleared to dc home today, is just anxious about the ride home. DOGMAN/WOMAN met with pt in room. Anxious and upset about ride home. Deny other CM needs. DOGMAN/WOMAN gave copy of the IMM. pt waived right to appeal dc. DOGMAN/WOMAN called dtr erin Ventura. DOGMAN/WOMAN spoke with spouse Micheal, (p [phone]). reports he will be on his way to p/u patient and transport back to . DOGMAN/WOMAN updated RN and pt. pt appreciative for update. P: home today with spouse support. No additional CM needs identified at this time. CM team will continue to follow as needed ANTHONY Branch
[2024-04-22] MEDS: ACETAMINOPHEN 325 MG TABLET 650 MG PO (12:46)
--- NOTE | 2024-04-22 14:06 | PC.NURSE ---
Patient is A&OX4, VSS, afebrile on RA. She is able to eat 1/3 breakfast, reports having poor appetite. She denies pain this a.m. or nausea. She works with PT and ambulates with steady gait, SBA. She is medically cleared for discharge this a.m. by hospitalist. Initially she is tearful, seeming to not want to bother her family moving 5th wheel today. Family returns call and are able to arrive this afternoon for transport home. She verbalizes understanding of decrease in long acting insulin, discontinuing HCTZ and following up with her PCP. She asks appropriate questions and is medicated per request with tylenol for r hip pain during long car drives. arrives to transport patient home via private vehicle at approximately 1400 this afternoon.
== END 2024-04-22 14:00 | disposition home or self-care (01) | DRG 871 ==
LOC: ED 23:08 → AC 04-20 02:44
PROVIDERS: Internal Medicine; Admitting Provider Internal Medicine; Emergency Provider Emergency Medicine; Family Provider Family Medicine; PCP Family Medicine; Referring Provider Emergency Medicine; Visit Provider Internal Medicine
DX: A41.9 Sepsis, unspecified organism (principal); G93.41 Metabolic encephalopathy; N17.9 Acute kidney failure, unspecified; N30.00 Acute cystitis without hematuria; E83.52 Hypercalcemia; E86.0 Dehydration; E87.6 Hypokalemia; E83.42 Hypomagnesemia; E11.9 Type 2 diabetes mellitus without complications; I10 Essential (primary) hypertension; E78.5 Hyperlipidemia, unspecified; M25.561 Pain in right knee; G89.29 Other chronic pain; R65.20 Severe sepsis without septic shock; N28.1 Cyst of kidney, acquired; K29.70 Gastritis, unspecified, without bleeding; Z90.411 Acquired partial absence of pancreas; Z79.4 Long term (current) use of insulin
CPT/HCPCS: 36415; 36600; 70450; 71045; 74176; 74183; 80048; 80053; 80061; 80305; 81001; 81003; 82140; 82306; 82310; 82962; 83605; 83690; 83735; 83880; 83970; 84145; 85025; 85610; 87077; 87086; 87186; 87633; 93005; 93010; 96361; 96365; 96366; 96372; 96375; 97110; 97116; 97161; 97166; 97530; 97535; 99284; 99291; A9579; J0630; J0696; J1815; J2270; J2405; J3475

== ENCOUNTER 2024-05-18 13:16 | Observation (INO) | payer MEDICARE, SELFPAY ==
[2024-04-26 11:35] VITALS: BMI 26.4
[2024-05-18] VITALS (18 sets, daily range): BP systolic 121–202; BP diastolic 55–82; PULSE 68–94; RESP 12–20; TEMP 36.4–37.4; O2SAT 95–99; BMI 26.6
--- NOTE | 2024-05-18 14:13 | EKG_ITS ---
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
[2024-05-18 14:14] LABS: Alanine Aminotransferase 62 IU/L (<35); Albumin 4.2 g/dL (3.5-5.0); Alkaline Phosphatase 152 U/L (38-126); Aspartate Aminotransferase 29 IU/L (14-36); BUN Creatinine Ratio 29.4 (6-22); Bilirubin Total 0.9 mg/dL (0.2-1.3); Blood Urea Nitrogen 25 mg/dL (7-17); Calcium 9.4 mg/dL (8.4-10.2); Carbon Dioxide 19 mmol/L (22-32); Chloride 105 mmol/L (98-107); Estimated Glomerular Filt Rate > 60 mL/min (>60); Globulin 4.1 g/dL (1.7-4.1); Glucose 182 mg/dL (80-110); HEMOLYSIS < 15 (0-50); Lipase 37 U/L (23-300); Potassium 3.4 mmol/L (3.4-5.1); Sodium 137 mmol/L (137-145); Total Protein 8.3 g/dL (6.3-8.2)
--- NOTE | 2024-05-18 14:16 | ED_ITS ---
HPI - General Adult General Chief complaint: Abdominal Pain Stated complaint: abd/kidney pain, t-7 Time Seen by Provider: 05/18/24 13:51 Source: patient Mode of arrival: Wheelchair History of Present Illness HPI narrative: Patient is a 79-year-old female. Within the past 2 weeks underwent a right total knee replacement. She was here today because of abdominal pain, vomiting, no bowel movement in the past 4-5 days, kidney pain. No fevers. No chest pain or shortness of breath. Has not been able to take her medications because of her presenting symptoms today. Related Data Home Medications Medication Instructions Recorded Confirmed FOLIC ACID/VIT A/VIT B1/VIT 1 tab PO QDAY ##0 03/30/11 05/18/24 (#MULTIVITAMIN) VITAMIN B COMPLEX 1 cap PO QDAY ##0 03/30/11 04/26/24 cholecalciferol (vitamin D3) 25 25 mcg PO DAILY 05/29/21 05/18/24 mcg (1,000 unit) capsule pen needle, diabetic 32 gauge x #1,200 ea 06/29/23 05/18/24 (TechLITE Pen Needle) Previous Rx's Medication Instructions Recorded Disabled Parking Permit #1 ea 04/16/20 blood sugar diagnostic (Blood #400 ea 04/03/22 Glucose Test strips) sumatriptan succinate 50 mg tablet 50 mg PO PRN #9 tabs 04/03/22 (Imitrex) [place] #100 ea 04/14/23 albuterol sulfate 90 mcg/actuation 2 puff PO Q4-6H PRN for wheezing 12/28/23 aerosol inhaler #8.5 grams amlodipine 10 mg tablet 10 mg PO QDAY #90 tabs 03/22/24 atorvastatin 10 mg tablet (Lipitor) 10 mg PO HS #90 tabs 03/22/24 potassium chloride 10 mEq 10 meq PO DAILY #90 caps 03/22/24 capsule,extended release tramadol 50 mg tablet 50 mg PO BID PRN pain #30 tabs 04/04/24 lancets 30 gauge (OneTouch Delica See Rx Instructions .Route 04/07/24 Plus Lancet) .COMPLEX #400 ea insulin glargine 100 unit/mL (3 5 unit (0.05 mL) SUBCUT DAILY #3 mL 04/22/24 mL) subcutaneous pen (Lantus Solostar U-100 Insulin) ondansetron HCl 4 mg tablet 4 mg PO Q8H PRN nausea and 04/22/24 vomiting 30 days #30 tabs OneTouch Ultra2 Meter #1 ea 04/24/24 (blood-glucose meter) Allergies Allergy/AdvReac Type Severity Reaction Status Date / Time codeine [CODEINE] Allergy Severe NAUSEA AND Verified 05/18/24 13:37 VOMITING lisinopril [LISINOPRIL] AdvReac Mild COUGH Verified 05/18/24 13:37 Review of Systems Review of Systems ROS Unobtainable: All systems reviewed & are unremarkable except as noted in HPI and below Patient History Medical History Lower back 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 Preventative health care GERD (gastroesophageal reflux disease) History of migraine headaches Actinic keratosis Medication side effect Greater trochanteric bursitis of both hips Iliotibial band tendinitis of both sides Somatic dysfunction of lower extremity Bilateral knee pain Medicare annual wellness visit, subsequent Vitamin D deficiency History of pneumonia (~2013) Carpal tunnel syndrome (~2013) Tbqm-Befc-Rwwf syndrome (Unknown) Pyelonephritis (~2013) Hx of myocardial infarction (~2013) Hyperlipemia (Unknown) Hypertension (Unknown) Diabetes (Unknown) Surgical History History of back surgery (Unknown) Hx of knee surgery (Unknown) Hx of hysterectomy (Unknown) Hx of cholecystectomy (Unknown) 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) Family History Child Age: 57 Wkij-Wgwp-Yevb syndrome Father Alzheimer disease Mother Lung cancer Social History household members: spouse Smoking Status: Never smoker second hand exposure: No alcohol intake: current substance use type: does not use Smoking Status: Never smoker Substance Use Type: does not use Exam Initial Vital Signs Initial Vital Signs: Vital Signs Temperature 97.6 F 05/18/24 13:37 Pulse Rate 88 05/18/24 13:37 Respiratory Rate 16 05/18/24 13:37 Blood Pressure 178/82 H 05/18/24 13:37 Pulse Oximetry 98 05/18/24 13:37 Oxygen Delivery Method Room Air 05/18/24 13:37 Const General: cooperative and No ill appearing HENNY Head: normal to inspection and normocephalic Resp Effort & Inspection: normal respiratory effort Auscultation: clear to auscultation bilaterally Cardio Rate: regular rate Rhythm: regular rhythm GI Inspection: non-distended Palpation: soft, No firm, No guarding and tender Skin Other: Surgical dressing in place right anterior knee that is clean and intact Neuro General: patient alert and patient awake Course Orders Ordered: ED Orders 05/18/24 13:42 EKG-12 Lead Stat 05/18/24 13:52 Comprehensive Metabolic Panel Stat Lipase Stat 05/18/24 14:03 Complete Blood Count AUTO DIFF Stat 05/18/24 14:16 CT abdomen pelvis w con Stat 05/18/24 15:47 Covid-19 + FLU A/B + RSV - PCR Stat 05/18/24 17:37 Consult to General Surgery Stat Acetaminophen (Acetaminophen 325 Mg Tablet) 650 mg PO Q6H PRN PRN Reason: Fever/Mild Pain (1-3) Atorvastatin Calcium (Atorvastatin 20 Mg Tablet) 10 mg PO BEDTIME ASHLEY Hydromorphone HCl (Hydromorphone 0.5 Mg Inj) 0.5 mg IV Q2H PRN PRN Reason: Pain, Severe (7-10) Insulin Glargine (Insulin Glargine 100 Unit/Ml 3ml Pen) 5 unit SUBCUT DAILY ASHLEY Naloxone HCl (Naloxone 0.4 Mg/Ml Vial) 0.2 mg IV Q2MIN PRN PRN Reason: Opiate Reversal Ondansetron HCl (Ondansetron 4 Mg/2 Ml Inj) 4 mg IV Q4HR PRN PRN Reason: Nausea And Vomiting Pantoprazole Sodium (Pantoprazole 40 Mg Vial) 40 mg IV BID ASHLEY Discontinued Medications Morphine Sulfate (Morphine 4 Mg/Ml Inj) 4 mg IV NOW ONE Stop: 05/18/24 17:18 Last Admin: 05/18/24 17:20 Dose: 4 mg Documented By: JEANNA Ondansetron HCl (Ondansetron 4 Mg/2 Ml Inj) 4 mg IV NOW PRN PRN Reason: Nausea And Vomiting Last Admin: 05/18/24 15:08 Dose: 4 mg Documented By: JEANNA Ondansetron HCl (Ondansetron 4 Mg Odt) 4 mg PO NOW PRN PRN Reason: Nausea And Vomiting Pantoprazole Sodium (Pantoprazole 40 Mg Vial) 40 mg IV NOW ONE Stop: 05/18/24 17:37 Last Admin: 05/18/24 17:50 Dose: 40 mg Documented By: JEANNA Vital Signs Vital signs: Vital Signs - 8 hr 05/18/24 13:37 05/18/24 15:01 05/18/24 15:01 Temperature 97.6 F Pulse Rate 88 76 Respiratory Rate 16 20 Blood Pressure 178/82 H 192/81 H Pulse Oximetry 98 98 Oxygen Delivery Method Room Air Room Air 05/18/24 15:35 05/18/24 15:37 05/18/24 15:37 Temperature Pulse Rate 83 70 Respiratory Rate 16 Blood Pressure 202/79 H Pulse Oximetry 97 Oxygen Delivery Method Room Air 05/18/24 16:00 05/18/24 16:01 05/18/24 16:01 Temperature Pulse Rate 73 74 Respiratory Rate Blood Pressure 154/67 H Pulse Oximetry 95 95 Oxygen Delivery Method 05/18/24 16:30 05/18/24 16:30 05/18/24 17:00 Temperature Pulse Rate 82 76 Respiratory Rate 12 Blood Pressure 143/63 H Pulse Oximetry 96 96 Oxygen Delivery Method Room Air 05/18/24 17:01 05/18/24 17:01 05/18/24 17:30 Temperature Pulse Rate 78 74 Respiratory Rate 16 Blood Pressure 170/74 H Pulse Oximetry 96 99 Oxygen Delivery Method Room Air 05/18/24 17:31 05/18/24 17:31 Temperature Pulse Rate 76 Respiratory Rate 15 Blood Pressure 168/70 H Pulse Oximetry 98 Oxygen Delivery Method Room Air Medical Decision Making Lab Data Lab results reviewed: Yes I reviewed the patient's lab results. 05/18/24 14:03 05/18/24 13:52 Labs: Lab Results 05/18/24 05/18/24 05/18/24 Range/Units 13:52 14:03 15:47 WBC 11.9 H (4.5-11.0) X10^3/uL RBC 3.03 L (4.0-5.2) X10^6/uL Hgb 9.6 L (12.0-16.0) g/dL Hct 28.4 L (36-46) % MCV 93.7 (80-100) fL MCH 31.8 (26-34) PG MCHC 34.0 (30-36) % RDW 13.5 (11.6-14.8) % Plt Count 455 H (150-400) X10^3/uL Neut % (Auto) 69.6 (50-75) % Lymph % (Auto) 19.5 L (25-40) % [place] % (Auto) 9.4 (3-14) % Eos % (Auto) 1.0 L (2-4) % Baso % (Auto) 0.5 (0-2) % Neut # (Auto) 8300 H (8342-0872) /uL Lymph # (Auto) 2300 (9604-6140) /uL [place] # (Auto) 1100 H (0-900) /uL Eos # (Auto) 100 (0-450) /uL Baso # (Auto) 100 (0-100) /uL Sodium 137 (137-145) mmol/L Potassium 3.4 (3.4-5.1) mmol/L Chloride 105 (98-107) mmol/L Carbon Dioxide 19 L (22-32) mmol/L BUN 25 H (7-17) mg/dL Creatinine 0.85 (0.52-1.04) mg/dL Estimated GFR > 60 (>60) mL/min BUN/Creatinine Ratio 29.4 H (6-22) Glucose 182 H (80-110) mg/dL Calcium 9.4 (8.4-10.2) mg/dL Total Bilirubin 0.9 (0.2-1.3) mg/dL AST 29 (14-36) IU/L ALT 62 H (<35) IU/L Alkaline Phosphatase 152 H (38-126) U/L Total Protein 8.3 H (6.3-8.2) g/dL Albumin 4.2 (3.5-5.0) g/dL Globulin 4.1 (1.7-4.1) g/dL Albumin/Globulin Ratio 1.0 (1.0-2.8) Lipase 37 (23-300) U/L SARS-CoV-2 (PCR) Negative (Negative) Influenza A (RT-PCR) Flu a negative (NEGATIVE) Influenza B (RT-PCR) Flu b negative (NEGATIVE) RSV (PCR) Negative (Negative) Urine Dip Bedside Urine Glucose Negative Bedside Urine Bilirubin - Negative Bedside Urine Ketone ++ 40 Urine Specific [place] 1.010 Bedside Urine Occult Blood - Negative Bedside Urine pH 6.5 Bedside Urine Protein - Negative Bedside Urine Urobilinogen - Negative Bedside Urine Nitrite - Negative Bedside Urine Leukocytes - Negative Esterase Point of care testing: Urine Dip Bedside Urine Glucose Negative Bedside Urine Bilirubin - Negative Bedside Urine Ketone ++ 40 Urine Specific [place] 1.010 Bedside Urine Occult Blood - Negative Bedside Urine pH 6.5 Bedside Urine Protein - Negative Bedside Urine Urobilinogen - Negative Bedside Urine Nitrite - Negative Bedside Urine Leukocytes - Negative Esterase Imaging Data CT scan - abdomen/pelvis: Radiologist's Impression: PROCEDURE: CT ABDOMEN PELVIS W CON INDICATIONS: Generalized abdominal pain and vomiting TECHNIQUE: After the administration of intravenous contrast, axial sections acquired from the lung bases to the pubic symphysis. Coronal and sagittal reformats were performed. For radiation dose reduction, the following was used: automated exposure control, adjustment of mA and/or kV according to patient size. COMPARISON: [facility], CT, CT ABDOMEN PELVIS WO CON, 04/19/2024, 23:23. FINDINGS: Image quality: Diagnostic. Lower Chest: No significant findings. ABDOMEN: Liver: No solid mass. Gallbladder: Gallbladder surgically absent. Biliary ducts: Biliary ductal dilatation with remote cholecystectomy. Pancreas: No ductal dilation. Spleen: Size is within normal limits. Adrenal Glands: No adrenal nodules. Kidneys and Ureters: No hydronephrosis. There is a homogeneously enhancing exophytic upper pole left renal mass, likely representing a small renal cell carcinoma measuring 2.2 cm. Innumerable tiny renal cysts. There is also a mildly enhancing exophytic low-density lesion of the lower pole of the right kidney measuring 2.0 x 2.5 cm which also may represent a small renal cell carcinoma. No complex renal cystic lesion which requires follow up. Stomach and Bowel: There is a large distal gastric antral ulcer. This may potentially represent a contained perforation. Reference axial image 30 of series 2. There is inflammatory edematous change adjacent to this lesion. The ulceration or contained perforation measures 2.3 x 1.2 cm. Normal colonic caliber, without significant wall thickening. Again noted is a sizable probable lipoma involving the transverse colon. It is a fat density mass. It measures approximately 8.0 x 5.5 cm. Reference coronal image 19 of series 3. Mild diverticulosis without evidence of acute diverticulitis. Peritoneum: No abnormal intraperitoneal fluid. No free air. Ventral Wall: No significant ventral hernia. Abdominal Nodes: No retroperitoneal or mesenteric adenopathy by size criteria. Vessels: Aorta and inferior vena cava are normal in size. PELVIS: Pelvic Organs: Uterus is surgically absent. 3.2 cm maximum diameter left adnexal cyst, unchanged from previous.. Bladder: No bladder wall thickening, accounting for underdistention. Pelvic Nodes: No enlarged lymph nodes. Miscellaneous: Fat containing right inguinal hernia. Bones: No aggressive osseous abnormality. IMPRESSION: 1. Very large posterior gastric antral ulcer versus perforated ulcer with associated subjacent inflammation. No free air. 2. 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 3. Probable bilateral small renal cell carcinomas. 4. 3.2 cm left adnexal cyst. Current recommendations are to image this area again in 12 months to document stability or growth. ECG Data Attestation: I personally reviewed and interpreted this ECG as follows: Interpretation: Sinus rhythm Ventricular rate is 66 Normal axis Normal QRS Normal QTC No ST T wave changes MDM Narrative Medical decision making narrative: CT scan concerning for large gastric ulcer versus perforation although there was no free air. Patient has been on anti-inflammatories on a regular basis secondary to her knee surgery. She was not on anticoagulation. Hemodynamically stable. Discussed the case with Dr. Toth on-call for General surgery who recommended the patient be admitted to the medicine service for evaluation. Patient was given a PPI. I then discussed the case with Dr. Garland hospitalist on-call who will admit. Discuss the need for admission with the patient. She expressed understanding and agreement as well. We also discussed the other findings of the CT scan. She was had a workup for the renal masses with an MRI within the past several months. Recommendation was for repeat imaging in approximately 6 months. We also discussed the adnexal cysts in the importance of following up with primary doctor when she improves from her admission to the hospital and knee surgery. She expressed understanding and agreement. Discharge Plan Departure Patient Disposition: Admitted as Observation Clinical Impression: Abdominal pain, Gastric ulcer Admit Date/Time: 05/18/24 17:48 Admit Provider: Franco Garland
[2024-05-18 14:27] LABS: Add Manual Diff / Slide Review NO; Basophils Absolute Auto 100 /uL (0-100); Basophils Percent Auto 0.5 % (0-2); Eosinophils Absolute Auto 100 /uL (0-450); Hematocrit 28.4 % (36-46); Hemoglobin 9.6 g/dL (12.0-16.0); Lymphocytes Absolute Auto 2300 /uL (1100-4500); Lymphocytes Percent Auto 19.5 % (25-40); Mean Corpuscular Hemoglobin 31.8 PG (26-34); Mean Corpuscular Volume 93.7 fL (80-100); Monocytes Absolute Auto 1100 /uL (0-900); Monocytes Percent Auto 9.4 % (3-14); Neutrophils Absolute Auto 8300 /uL (1500-7000); Neutrophils Percent Auto 69.6 % (50-75); Platelet Count 455 X10^3/uL (150-400); Red Blood Cell Count 3.03 X10^6/uL (4.0-5.2); Red Cell Distribution Width 13.5 % (11.6-14.8); White Blood Cell Count 11.9 X10^3/uL (4.5-11.0)
[2024-05-18] MEDS: ONDANSETRON 4 MG/2 ML INJ IV (15:08)
[2024-05-18 16:49] LABS: Influenza A - CEPHEID Flu A NEGATIVE (NEGATIVE); Influenza B - CEPHEID Flu B NEGATIVE (NEGATIVE); Respiratory Syncytial Virus Negative (Negative)
[2024-05-18 16:54] LABS: COVID-19 CEPHEID 4-PLEX PCR Negative (Negative)
[2024-05-18] MEDS: MORPHINE 4 MG/ML INJ IV (17:20)
[2024-05-18] MEDS: PANTOPRAZOLE 40 MG VIAL IV ×2 (17:50→22:10)
--- NOTE | 2024-05-18 18:07 | P.HP_ITS ---
History of Present Illness History of Present Illness Date Patient Seen: 05/18/24 Time Patient Seen: 18:07 Chief complaint: abd/kidney pain, t-7 Narrative: 79 female with history of hypertension, hyperlipidemia, insulin-dependent diabetes, chronic pain presented to the ER with right upper quadrant abdominal pain after meals, and coffee ground emesis. She was recently admitted with hypercalcemia, at that time had some RUQ abdominal pain as well. She reports abdominal pain did improve slightly but never fully resolved. She underwent knee surgery a couple of weeks ago and has been taking NSAIDs for pain. She was vomiting afterwards and stopped taking the opiates she was prescribed and changed to NSAIDs instead. She has not been able to take medications for the last couple of days due to inability to keep anything down. She last reports a bowel movement 2 days ago which was small but brown and not dark. In the ER her Hg was 9.6 from 12.[address] scan showed a gastric ulcer with possible perforation. WBC 11.9, Hg 9.6. Surgery was called, but clinically patient did not appear to have perforation. Recommended PPI, further monitoring, and if h/h downtrends further possible EGD but given finding noted on CT unlikely endoscopy would be recommended at this time. [facility] Medical History Lower back pain [facility] (current) use of insulin Preventative health care GERD (gastroesophageal reflux disease) History of migraine headaches Actinic keratosis Medication side effect Greater trochanteric bursitis of both hips Iliotibial band tendinitis of both sides Somatic dysfunction of lower extremity Bilateral knee pain Medicare annual wellness visit, subsequent Vitamin D deficiency History of pneumonia (~2013) Carpal tunnel syndrome (~2013) Fjjx-Sjyj-Qtqq syndrome (Unknown) Pyelonephritis (~2013) Hx of myocardial infarction (~2013) Hyperlipemia (Unknown) Hypertension (Unknown) Diabetes (Unknown) Surgical History History of back surgery (Unknown) Hx of knee surgery (Unknown) Hx of hysterectomy (Unknown) Hx of cholecystectomy (Unknown) 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) Family History Child Age: 57 Nmdz-Gosj-Ucqg syndrome Father Alzheimer disease Mother Lung cancer Social History household members: spouse Smoking Status: Never smoker second hand exposure: No alcohol intake: current substance use type: does not use Meds Home Medications and Allergies Home Medications Medication Instructions Recorded Confirmed Type FOLIC ACID/VIT A/VIT B1/VIT 1 tab PO QDAY ##0 03/30/11 05/18/24 History (#MULTIVITAMIN) VITAMIN B COMPLEX 1 cap PO QDAY ##0 03/30/11 05/18/24 History Disabled Parking Permit #1 ea 04/16/20 05/18/24 Rx cholecalciferol (vitamin D3) 25 25 mcg PO DAILY 05/29/21 05/18/24 History mcg (1,000 unit) capsule blood sugar diagnostic (Blood #400 ea 04/03/22 05/18/24 Rx Glucose Test strips) sumatriptan succinate 50 mg tablet 50 mg PO PRN #9 tabs 04/03/22 05/18/24 Rx (Imitrex) [place] #100 ea 04/14/23 05/18/24 Rx pen needle, diabetic 32 gauge x #1,200 ea 06/29/23 05/18/24 History (TechLITE Pen Needle) albuterol sulfate 90 mcg/actuation 2 puff PO Q4-6H PRN for wheezing 12/28/23 05/18/24 Rx aerosol inhaler #8.5 grams amlodipine 10 mg tablet 10 mg PO QDAY #90 tabs 03/22/24 05/18/24 Rx atorvastatin 10 mg tablet (Lipitor) 10 mg PO HS #90 tabs 03/22/24 05/18/24 Rx potassium chloride 10 mEq 10 meq PO DAILY #90 caps 03/22/24 05/18/24 Rx capsule,extended release tramadol 50 mg tablet 50 mg PO BID PRN pain #30 tabs 04/04/24 05/18/24 Rx lancets 30 gauge (OneTouch Delica See Rx Instructions .Route 04/07/24 05/18/24 Rx Plus Lancet) .COMPLEX #400 ea insulin glargine 100 unit/mL (3 5 unit (0.05 mL) SUBCUT DAILY #3 mL 04/22/24 05/18/24 Rx mL) subcutaneous pen (Lantus Solostar U-100 Insulin) ondansetron HCl 4 mg tablet 4 mg PO Q8H PRN nausea and 04/22/24 05/18/24 Rx vomiting 30 days #30 tabs OneTouch Ultra2 Meter #1 ea 04/24/24 05/18/24 Rx (blood-glucose meter) Allergies Allergy/AdvReac Type Severity Reaction Status Date / Time codeine [CODEINE] Allergy Severe NAUSEA AND Verified 05/18/24 13:37 VOMITING lisinopril [LISINOPRIL] AdvReac Mild COUGH Verified 05/18/24 13:37 Review of Systems Review of Systems Narrative: All other systems reviewed with the patient and are negative unless otherwise stated. Exam Vital Signs (past 8 hours): - 05/18/24 13:37 05/18/24 15:01 05/18/24 15:01 Temperature 97.6 F Pulse Rate 88 76 Respiratory Rate 16 20 Blood Pressure 178/82 H 192/81 H Pulse Oximetry 98 98 Oxygen Delivery Method Room Air Room Air 05/18/24 15:35 05/18/24 15:37 05/18/24 15:37 Temperature Pulse Rate 83 70 Respiratory Rate 16 Blood Pressure 202/79 H Pulse Oximetry 97 Oxygen Delivery Method Room Air 05/18/24 16:00 05/18/24 16:01 05/18/24 16:01 Temperature Pulse Rate 73 74 Respiratory Rate Blood Pressure 154/67 H Pulse Oximetry 95 95 Oxygen Delivery Method 05/18/24 16:30 05/18/24 16:30 05/18/24 17:00 Temperature Pulse Rate 82 76 Respiratory Rate 12 Blood Pressure 143/63 H Pulse Oximetry 96 96 Oxygen Delivery Method Room Air 05/18/24 17:01 05/18/24 17:01 05/18/24 17:30 Temperature Pulse Rate 78 74 Respiratory Rate 16 Blood Pressure 170/74 H Pulse Oximetry 96 99 Oxygen Delivery Method Room Air 05/18/24 17:31 05/18/24 17:31 05/18/24 18:00 Temperature Pulse Rate 76 79 Respiratory Rate 15 Blood Pressure 168/70 H Pulse Oximetry 98 98 Oxygen Delivery Method Room Air Oxygen Delivery Method Room Air Narrative Exam Narrative: elderly female, mildly lethargic after morphine. appears acutely ill. Normocephalic skull, EOMI, anicteric sclera, symmetric pupils. Oropharynx unremarkable, no droop. Neck supple, midline trachea, no adenopathy. Lungs clear, normal rate and effort. Heart regular, no murmur gallop or rub. Abdomen is soft, non-distended, mildly tender in the epigastrium. Extremities are free of edema. Skin is free of rash or lesions. Joints are not swollen or deformed. R knee incision c/d/i. Judgment appears to be normal. Objective Labs 05/18/24 14:03 05/18/24 13:52 Labs: Laboratory Results - last 24 hr 05/18/24 05/18/24 05/18/24 13:52 14:03 15:47 WBC 11.9 H RBC 3.03 L Hgb 9.6 L Hct 28.4 L MCV 93.7 MCH 31.8 MCHC 34.0 RDW 13.5 Plt Count 455 H Neut % (Auto) 69.6 Lymph % (Auto) 19.[address] [place] % (Auto) 9.4 Eos % (Auto) 1.0 L Baso % (Auto) 0.5 Neut # (Auto) 8300 H Lymph # (Auto) 2300 [place] # (Auto) 1100 H Eos # (Auto) 100 Baso # (Auto) 100 Sodium 137 Potassium 3.4 Chloride 105 Carbon Dioxide 19 L BUN 25 H Creatinine 0.85 Estimated GFR > 60 BUN/Creatinine Ratio 29.4 H Glucose 182 H Calcium 9.4 Total Bilirubin 0.9 AST 29 ALT 62 H Alkaline Phosphatase 152 H Total Protein 8.3 H Albumin 4.2 Globulin 4.1 Albumin/Globulin Ratio 1.0 Lipase 37 SARS-CoV-2 (PCR) Negative Influenza A (RT-PCR) Flu a negative Influenza B (RT-PCR) Flu b negative RSV (PCR) Negative Assessment & Plan Assessment & Plan narrative: 1. Acute blood loss anemia due to GI bleeding from NSAID induced gastric ulcer - okay for CLD for now. Continue IV PPI BID. Unless clinical change repeat h/h in the morning. Initial Hg 9.6 from 12 approx 1 month ago. - general surgery to consult, likely no endoscopy needed if h/h stable. If signs of perforation develop will consult emergently. - CT showing possible perforation in the ulcer, however does not clinically appear perforated. Will monitor for now - will order IV fluids with NS @125 cc for now. - no indication for antibiotics at this time. 2. Right kidney hypodense exophytic focus arising from the right kidney.Present on admission and active. -renal MRI last admission. Results were re-assuring though there was motion artifact imaging was mostly consistent with hemorrhagic cyst. Recommended repeat imaging in [address] 3. Diabetes mellitus type 2, insulin-dependent. Present on admission and active. -ADA diet, monitor blood sugar ACHS, -During her prior hospitalization was only requiring 5 U of Lantus, PCP reports back to usual dosing. Will give 10U lantus to start. -continue statin 4. Hypertension. Present on admission and active. 5. Hyperlipidemia. Present on admission and active. - continue home atorvastatin 6. Chronic right knee pain s/p R knee surgery 2 weeks ago. Present on admission and active. - tylenol, and tramadol ordered for pain. No NSAIDs. Dilaudid for severe pain also ordered. Code: Full, surrogate is patient's spouse DVT: Lovenox daily I have utilized all available immediate resources to obtain, update, or review the patient's current medications. Dispo: patient admitted under observation status. Likely discharge home in 1-2 days depending on improvement / stability of GI bleeding. Additional history obtained via discussions with the ER provider and surgeon. These discussions contributed to the creation of the above assessment and plan. I have reviewed patient's presenting documentation, labs, and imaging personally. Time-Based Coding :: [TOTAL MINUTES] spent with patient and on the chart (including review of chart, obtaining history, exam, reviewing outside data, placing orders, documenting exam and treatment plan, and counseling patient) on [DATE].
[2024-05-18] MEDS: ACETAMINOPHEN 325 MG TABLET 650 MG PO (18:43)
[2024-05-18] MEDS: HYDROMORPHONE 0.5 MG INJ IV (18:44)
[2024-05-18] MEDS: SODIUM CHLORIDE 0.9% 1,000 ML 125 ML IV (18:56)
--- NOTE | 2024-05-18 19:33 | PM.CN ---
History of Present Illness Consult details Date Patient Seen: 05/18/24 Time Patient Seen: 19:33 Chief complaint: abd/kidney pain, t-7 Narrative: Emily is a 79 year woman who presented to the emergency department today complaining of several weeks of abdominal pain. She had a right total knee replacement by Dr. Wilson about 10 days ago. She has actually had symptoms since prior to her knee surgery. Her symptoms involve abdominal pain, nausea and vomiting. She did vomit black gastric contents a few days ago. In the emergency department a CT scan was performed and shows large posterior gastric ulcer. There is no free air or free fluid in the abdomen. She has been taking NSAIDs for quite some time because of her knee pain. She has had cortisone injections into her knees. She does not smoke. No prior abdominal surgery. Meds Home Medications and Allergies Home Medications Medication Instructions Recorded Confirmed Type FOLIC ACID/VIT A/VIT B1/VIT 1 tab PO QDAY ##0 03/30/11 05/18/24 History (#MULTIVITAMIN) VITAMIN B COMPLEX 1 cap PO QDAY ##0 03/30/11 05/18/24 History Disabled Parking Permit #1 ea 04/16/20 05/18/24 Rx cholecalciferol (vitamin D3) 25 25 mcg PO DAILY 05/29/21 05/18/24 History mcg (1,000 unit) capsule blood sugar diagnostic (Blood #400 ea 04/03/22 05/18/24 Rx Glucose Test strips) sumatriptan succinate 50 mg tablet 50 mg PO PRN #9 tabs 04/03/22 05/18/24 Rx (Imitrex) [place] #100 ea 04/14/23 05/18/24 Rx pen needle, diabetic 32 gauge x #1,200 ea 06/29/23 05/18/24 History (TechLITE Pen Needle) albuterol sulfate 90 mcg/actuation 2 puff PO Q4-6H PRN for wheezing 12/28/23 05/18/24 Rx aerosol inhaler #8.5 grams amlodipine 10 mg tablet 10 mg PO QDAY #90 tabs 03/22/24 05/18/24 Rx atorvastatin 10 mg tablet (Lipitor) 10 mg PO HS #90 tabs 03/22/24 05/18/24 Rx potassium chloride 10 mEq 10 meq PO DAILY #90 caps 03/22/24 05/18/24 Rx capsule,extended release tramadol 50 mg tablet 50 mg PO BID PRN pain #30 tabs 04/04/24 05/18/24 Rx lancets 30 gauge (OneTouch Delica See Rx Instructions .Route 04/07/24 05/18/24 Rx Plus Lancet) .COMPLEX #400 ea insulin glargine 100 unit/mL (3 5 unit (0.05 mL) SUBCUT DAILY #3 mL 04/22/24 05/18/24 Rx mL) subcutaneous pen (Lantus Solostar U-100 Insulin) ondansetron HCl 4 mg tablet 4 mg PO Q8H PRN nausea and 04/22/24 05/18/24 Rx vomiting 30 days #30 tabs OneTouch Ultra2 Meter #1 ea 04/24/24 05/18/24 Rx (blood-glucose meter) Allergies Allergy/AdvReac Type Severity Reaction Status Date / Time codeine [CODEINE] Allergy Severe NAUSEA AND Verified 05/18/24 13:37 VOMITING lisinopril [LISINOPRIL] AdvReac Mild COUGH Verified 05/18/24 13:37 Exam Vital Signs (past 8 hours): - 05/18/24 13:37 05/18/24 15:01 05/18/24 15:01 Temperature 97.6 F Pulse Rate 88 76 Respiratory Rate 16 20 Blood Pressure 178/82 H 192/81 H Pulse Oximetry 98 98 Oxygen Delivery Method Room Air Room Air Oxygen Flow Rate 05/18/24 15:35 05/18/24 15:37 05/18/24 15:37 Temperature Pulse Rate 83 70 Respiratory Rate 16 Blood Pressure 202/79 H Pulse Oximetry 97 Oxygen Delivery Method Room Air Oxygen Flow Rate 05/18/24 16:00 05/18/24 16:01 05/18/24 16:01 Temperature Pulse Rate 73 74 Respiratory Rate Blood Pressure 154/67 H Pulse Oximetry 95 95 Oxygen Delivery Method Oxygen Flow Rate 05/18/24 16:30 05/18/24 16:30 05/18/24 17:00 Temperature Pulse Rate 82 76 Respiratory Rate 12 Blood Pressure 143/63 H Pulse Oximetry 96 96 Oxygen Delivery Method Room Air Oxygen Flow Rate 05/18/24 17:01 05/18/24 17:01 05/18/24 17:30 Temperature Pulse Rate 78 74 Respiratory Rate 16 Blood Pressure 170/74 H Pulse Oximetry 96 99 Oxygen Delivery Method Room Air Oxygen Flow Rate 05/18/24 17:31 05/18/24 17:31 05/18/24 17:55 Temperature Pulse Rate 76 Respiratory Rate 15 Blood Pressure 168/70 H Pulse Oximetry 98 Oxygen Delivery Method Room Air Room Air Oxygen Flow Rate 05/18/24 18:00 05/18/24 18:19 05/18/24 18:19 Temperature 99.3 F Pulse Rate 79 94 H Respiratory Rate 19 Blood Pressure 149/71 H Pulse Oximetry 98 98 98 Oxygen Delivery Method Room Air Oxygen Flow Rate 0 0 05/18/24 18:43 Temperature 99.3 F Pulse Rate Respiratory Rate Blood Pressure Pulse Oximetry Oxygen Delivery Method Oxygen Flow Rate Oxygen Delivery Method Room Air Oxygen Flow Rate 0 Narrative Exam Narrative: Abdomen is soft Moderate guarding in the epigastric region Objective Labs 05/18/24 14:03 05/18/24 13:52 Labs: Laboratory Results - last 24 hr 05/18/24 05/18/24 05/18/24 13:52 14:03 15:47 WBC 11.9 H RBC 3.03 L Hgb 9.6 L Hct 28.4 L MCV 93.7 MCH 31.8 MCHC 34.0 RDW 13.5 Plt Count 455 H Neut % (Auto) 69.6 Lymph % (Auto) 19.5 L [place] % (Auto) 9.4 Eos % (Auto) 1.0 L Baso % (Auto) 0.5 Neut # (Auto) 8300 H Lymph # (Auto) 2300 [place] # (Auto) 1100 H Eos # (Auto) 100 Baso # (Auto) 100 Sodium 137 Potassium 3.4 Chloride 105 Carbon Dioxide 19 L BUN 25 H Creatinine 0.85 Estimated GFR > 60 BUN/Creatinine Ratio 29.4 H Glucose 182 H Calcium 9.4 Total Bilirubin 0.9 AST 29 ALT 62 H Alkaline Phosphatase 152 H Total Protein 8.3 H Albumin 4.2 Globulin 4.1 Albumin/Globulin Ratio 1.0 Lipase 37 SARS-CoV-2 (PCR) Negative Influenza A (RT-PCR) Flu a negative Influenza B (RT-PCR) Flu b negative RSV (PCR) Negative PFSH Medical History 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 Preventative health care GERD (gastroesophageal reflux disease) History of migraine headaches Actinic keratosis Medication side effect Greater trochanteric bursitis of both hips Iliotibial band tendinitis of both sides Somatic dysfunction of lower extremity Bilateral knee pain Medicare annual wellness visit, subsequent Vitamin D deficiency History of pneumonia (~2013) Carpal tunnel syndrome (~2013) Jrbd-Dwff-Knvs syndrome (Unknown) Pyelonephritis (~2013) Hx of myocardial infarction (~2013) Hyperlipemia (Unknown) Hypertension (Unknown) Diabetes (Unknown) Surgical History History of back surgery (Unknown) Hx of knee surgery (Unknown) Hx of hysterectomy (Unknown) Hx of cholecystectomy (Unknown) 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) Family History Child Age: 57 Xilc-Srdp-Hzhr syndrome Father Alzheimer disease Mother Lung cancer Social History household members: spouse Tobacco & Substance Use Smoking Status: Never smoker second hand exposure: No alcohol intake: current substance use type: does not use Assessment & Plan Assessment and plan (1) Gastric ulcer: Qualifiers: Gastric ulcer chronicity: acute Gastric ulcer complication status: without hemorrhage or perforation Qualified Code(s): K25.3 - Acute gastric ulcer without hemorrhage or perforation Status: Acute Plan A 79-year-old woman with a large gastric ulcer presumably from NSAID use. There was no immediate indication for surgery or endoscopy as the diagnosis is fairly well established with history and imaging. Recommend PPI therapy and observation. If she remains stable after 12 hours or so she can start on a diet. Time-Based Coding :: [TOTAL MINUTES] spent with patient and on the chart (including review of chart, obtaining history, exam, reviewing outside data, placing orders, documenting exam and treatment plan, and counseling patient) on [DATE].
[2024-05-18] MEDS: ATORVASTATIN 20 MG TABLET 10 MG PO (22:10)
[2024-05-19] VITALS (7 sets, daily range): BP systolic 117–137; BP diastolic 50–73; PULSE 65–75; RESP 12–18; TEMP 36.4–36.7; O2SAT 91–98
[2024-05-19] MEDS: SODIUM CHLORIDE 0.9% 1,000 ML 125 ML IV (02:40)
[2024-05-19] MEDS: ACETAMINOPHEN 325 MG TABLET 650 MG PO ×3 (02:42→15:28)
[2024-05-19] MEDS: MORPHINE 4 MG/ML INJ IV (06:11)
[2024-05-19 06:40] LABS: Add Manual Diff / Slide Review NO; Basophils Absolute Auto 0 /uL (0-100); Basophils Percent Auto 0.3 % (0-2); Eosinophils Absolute Auto 200 /uL (0-450); Eosinophils Percent Auto 2.4 % (2-4); Hematocrit 24.3 % (36-46); Hemoglobin 8.3 g/dL (12.0-16.0); Lymphocytes Absolute Auto 1300 /uL (1100-4500); Lymphocytes Percent Auto 16.1 % (25-40); Mean Corpuscular Hemoglobin 32.2 PG (26-34); Mean Corpuscular Volume 94.7 fL (80-100); Monocytes Absolute Auto 1000 /uL (0-900); Monocytes Percent Auto 12.3 % (3-14); Neutrophils Absolute Auto 5700 /uL (1500-7000); Neutrophils Percent Auto 68.9 % (50-75); Platelet Count 386 X10^3/uL (150-400); Red Blood Cell Count 2.56 X10^6/uL (4.0-5.2); Red Cell Distribution Width 13.9 % (11.6-14.8); White Blood Cell Count 8.3 X10^3/uL (4.5-11.0)
[2024-05-19 06:47] LABS: Alanine Aminotransferase 148 IU/L (<35); Albumin 3.2 g/dL (3.5-5.0); Alkaline Phosphatase 214 U/L (38-126); Aspartate Aminotransferase 199 IU/L (14-36); BUN Creatinine Ratio 24.7 (6-22); Bilirubin Total 0.7 mg/dL (0.2-1.3); Blood Urea Nitrogen 21 mg/dL (7-17); Calcium 8.2 mg/dL (8.4-10.2); Carbon Dioxide 22 mmol/L (22-32); Chloride 111 mmol/L (98-107); Estimated Glomerular Filt Rate > 60 mL/min (>60); Globulin 3.2 g/dL (1.7-4.1); Glucose 143 mg/dL (80-110); HEMOLYSIS < 15 (0-50); Magnesium 2.2 mg/dL (1.6-2.3); Potassium 3.2 mmol/L (3.4-5.1); Sodium 139 mmol/L (137-145); Total Protein 6.4 g/dL (6.3-8.2)
[2024-05-19] MEDS: PANTOPRAZOLE 40 MG VIAL IV (08:21)
[2024-05-19] MEDS: SODIUM CHLORIDE 0.9% FLUSH 10 ML IV (09:59)
[2024-05-19] MEDS: INSULIN GLARGINE 100 UNIT/ML 3ML PEN SUBCUT (09:59)
[2024-05-19] MEDS: POTASSIUM CHLORIDE IN WATER 10 MEQ/100 ML PIGGYBACK 100 MEQ IV ×4 (10:00→13:53)
--- NOTE | 2024-05-19 10:06 | P.PN_ITS ---
Subjective Subjective Date Patient Seen: 05/19/24 Time Patient Seen: 10:07 Interval history: No overnight events. Tolerating clear liquid diet Exam Vital Signs (past 8 hours): - 05/19/24 03:00 05/19/24 07:00 05/19/24 07:00 Temperature 97.8 F 97.6 F Pulse Rate 65 72 Respiratory Rate 18 14 Blood Pressure 117/60 121/50 L Pulse Oximetry 95 96 Oxygen Delivery Method Room Air Oxygen Flow Rate 0 0 Oxygen Delivery Method Room Air Oxygen Flow Rate 0 Narrative Exam Narrative: General elderly woman alert oriented no acute distress Abdomen mild tenderness epigastric region compressible no peritonitis. Objective Labs 05/19/24 05:10 05/19/24 05:10 Labs: Laboratory Results - last 24 hr 05/18/24 05/18/24 05/18/24 13:52 14:03 15:47 WBC 11.9 H RBC 3.03 L Hgb 9.6 L Hct 28.4 L MCV 93.7 MCH 31.8 MCHC 34.0 RDW 13.5 Plt Count 455 H Neut % (Auto) 69.6 Lymph % (Auto) 19.5 L [place] % (Auto) 9.4 Eos % (Auto) 1.0 L Baso % (Auto) 0.5 Neut # (Auto) 8300 H Lymph # (Auto) 2300 [place] # (Auto) 1100 H Eos # (Auto) 100 Baso # (Auto) 100 Sodium 137 Potassium 3.4 Chloride 105 Carbon Dioxide 19 L BUN 25 H Creatinine 0.85 Estimated GFR > 60 BUN/Creatinine Ratio 29.4 H Glucose 182 H Calcium 9.4 Magnesium Total Bilirubin 0.9 AST 29 ALT 62 H Alkaline Phosphatase 152 H Total Protein 8.3 H Albumin 4.2 Globulin 4.1 Albumin/Globulin Ratio 1.0 Lipase 37 SARS-CoV-2 (PCR) Negative Influenza A (RT-PCR) Flu a negative Influenza B (RT-PCR) Flu b negative RSV (PCR) Negative 05/19/24 05:10 WBC 8.3 RBC 2.56 L Hgb 8.3 L Hct 24.3 L MCV 94.7 MCH 32.2 MCHC 34.0 RDW 13.9 Plt Count 386 Neut % (Auto) 68.9 Lymph % (Auto) 16.1 L [place] % (Auto) 12.3 Eos % (Auto) 2.4 Baso % (Auto) 0.3 Neut # (Auto) 5700 Lymph # (Auto) 1300 [place] # (Auto) 1000 H Eos # (Auto) 200 Baso # (Auto) 0 Sodium 139 Potassium 3.2 L Chloride 111 H Carbon Dioxide 22 BUN 21 H Creatinine 0.85 Estimated GFR > 60 BUN/Creatinine Ratio 24.7 H Glucose 143 H Calcium 8.2 L Magnesium 2.2 Total Bilirubin 0.7 AST 199 H ALT 148 H Alkaline Phosphatase 214 H Total Protein 6.4 Albumin 3.2 L Globulin 3.2 Albumin/Globulin Ratio 1.0 Lipase SARS-CoV-2 (PCR) Influenza A (RT-PCR) Influenza B (RT-PCR) RSV (PCR) [facility] Medical History 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 Preventative health care GERD (gastroesophageal reflux disease) History of migraine headaches Actinic keratosis Medication side effect Greater trochanteric bursitis of both hips Iliotibial band tendinitis of both sides Somatic dysfunction of lower extremity Bilateral knee pain Medicare annual wellness visit, subsequent Vitamin D deficiency History of pneumonia (~2013) Carpal tunnel syndrome (~2013) Icxa-Ixuu-Aiyx syndrome (Unknown) Pyelonephritis (~2013) Hx of myocardial infarction (~2013) Hyperlipemia (Unknown) Hypertension (Unknown) Diabetes (Unknown) Surgical History History of back surgery (Unknown) Hx of knee surgery (Unknown) Hx of hysterectomy (Unknown) Hx of cholecystectomy (Unknown) 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 -Continue PPI therapy -advanced to full liquid diet today Time-Based Coding :: [TOTAL MINUTES] spent with patient and on the chart (including review of chart, obtaining history, exam, reviewing outside data, placing orders, documenting exam and treatment plan, and counseling patient) on [DATE]. Quality VTE Deep Vein Thrombosis/Pulmonary Embolism Present on Admission: No
--- NOTE | 2024-05-19 11:17 | CM.DANOTE ---
DCP Assessment Note: Pt is a 79yo female, resident of [place], is admitted for abdominal pain and gastric ulcer. Pt lives in an RV/5th Wheel with her , Micheal. Pt's Primary Care Provider is Dr. Chandler Roman and insurance is [employer] Medicare. Reviewed chart and team rounds for pt's medical status and initial discharge needs. DCP met w/patient at bedside; introduced self and role. Patient was found in bed, alert and oriented, cooperative with assessment. Pt confirmed living situation and good support in and extended family. Pt expressed preference in returning home when medically stable to continue with rehabiliation s/p TKA completed on 05/08. DCP discussed discharge plans with an estimated discharge date in 1-2 days, pt agreeable. Pt declined this DCP's offer for a HH referral. Plan: Anticipating discharge home with spouse to transport when medically stable. CM team will follow closely for coordination of discharge plans. GABRIEL Yen Discharge Planning/Care Management CM Discharge Assessment Start: 05/19/24 11:10 Freq: Status: Active Protocol: Document 05/19/24 11:10 MW (Rec: 05/19/24 11:16 MW [id number]) Discharge Planning Assessment Assigned Manager Power ANTHONY Gregory/Assigned Designee Name Micheal, Spouse Contact Information [phone] Advance Directives? No Advance Directives on File No History Provided By Patient,Medical Record Has Patient been admitted in last 30 Yes days? Comment Patient was admitted 04/19- s/p Hypercalcemia/CINTHYA/ dehydration. Patient had a previous knee surgery with Dr. Wilson on 05/08 at another facility. Prior Living Arrangements RV Comment Patient lives at [facility] in [place], [place]. Household Members spouse Type of transporation used prior to Drives own vehicle admit Independent with ADL's Yes Is patient alert and oriented? Yes Needs Assistance With Home Chores / Shopping Caregiver for Another No DME Already Rented / Owned FWW / Walker Discharge Plan Home Transportation Arrangement spouse bedside and plans to transport Referrals Initiated None needed Whiteboard Updated in Patient Room with Yes name and ext. # of Manager Power Comment [phone] Please Provide Date Initial DC 05/19/24 Assessment Was Performed Next Review Type Continued Stay Review
[2024-05-19 13:18] LABS: Hemoglobin 8.5 g/dL (12.0-16.0)
--- NOTE | 2024-05-19 14:47 | DIET.CONS ---
Dietary Consultation Note Admission Date: 05/18/2024 17:48 RD contacted by Unit Host. Pt primarily vegan assigned full liquid diet. Pt does not consume dairy, dislikes soymilk and almond milk, declined pea protein powder smoothie. Pt would benefit from advancement to easy to chew diet as approved by surgery. Ht: 165.1 cm Wt: 72.717 kg BMI: 26.6 UBW: Last BM: 05/19/24 (05/19/24 14:40) MNA: 9 Terrence Score: 18 Diet: 05/19/24 Lunch Full Liquid Diet Diet Modifications: Nutrition Percent Meal Consumed 75% 05/19/24 09:00 Labs: RBC 2.56 X10^6/uL (4.0-5.2) L 05/19/24 05:10 Hgb 8.5 g/dL (12.0-16.0) L 05/19/24 13:05 Hct 25.0 % (36-46) L 05/19/24 13:05 Creatinine 0.85 mg/dL (0.52-1.04) 05/19/24 05:10 Nutrition Diagnosis: Interventions: EER: Monitoring/Evaluations: Electronically Signed by: Jenny Garcia 05/19/24 14:47 Clinical [address] [address]
--- NOTE | 2024-05-19 16:33 | P.DS_ITS ---
History of Present Illness History of Present Illness Chief complaint: abd/kidney pain, t-7 Narrative: From H&P: 79 female with history of hypertension, hyperlipidemia, insulin-dependent diabetes, chronic pain presented to the ER with right upper quadrant abdominal pain after meals, and coffee ground emesis. She was recently admitted with hypercalcemia, at that time had some RUQ abdominal pain as well. She reports abdominal pain did improve slightly but never fully resolved. She underwent knee surgery a couple of weeks ago and has been taking NSAIDs for pain. She was vomiting afterwards and stopped taking the opiates she was prescribed and changed to NSAIDs instead. She has not been able to take medications for the last couple of days due to inability to keep anything down. She last reports a bowel movement 2 days ago which was small but brown and not dark. In the ER her Hg was 9.6 from 12.[address] scan showed a gastric ulcer with possible perforation. WBC 11.9, Hg 9.6. Surgery was called, but clinically patient did not appear to have perforation. Recommended PPI, further monitoring, and if h/h downtrends further possible EGD but given finding noted on CT unlikely endoscopy would be recommended at this time. Discharge Providers Provider Date of admission: 05/18/24 17:48 Discharge Date: 05/19/24 Primary care physician: Chandler Roman DO Consults: 05/18/24 17:37 Consult to General Surgery Stat Comment: Consulting Provider: Dg Toth Reason for consultation: gastric ulcer Has provider been notified: Yes Discharge provider: Asher Wang MD Summary Hospital Course Discharge Diagnosis: 1. Abdomen pain related to a gastric ulcer identified on CT. Present on admission and active. 2. Possible mild blood loss anemia, present on admission and stable. 3. Right kidney lesion, present on admission and active. 4. DM 2, present on admission and stable. 5. Hypertension, present on admission and stable. 6. Hyperlipidemia, present on admission stable. 7. Recent right total knee replacement, present on admission and stable. Hospital Course: She was admitted with abdominal pain and found to have evidence of a gastric ulcer on CT scan. There was no melena or bright red blood per rectum. She had a mild blood loss anemia and this remained stable. She was being seen by surgery who recommended medical therapy and no endoscopy unless she had a change in clinical status. Her symptoms completely resolved on Protonix b.i.d.. She was discussed in detail with Orthopedics in the day of discharge due to her need for DVT prophylaxis for her right recent total knee replacement as well as the possibility of blood loss related to an ulcer. The decision was made to use Eliquis, at a modified dose of 5 mg daily, for 14 additional days for DVT prophylaxis. The patient does understand that she was at risk for GI bleeding and we will be watching for evidence of GI bleeding. She will be seen by Orthopedics 3 days following discharge and have a hemoglobin drawn at that point. Status at Discharge Cognitive/behavioral status at discharge: at baseline, oriented Functional status at discharge: independent ambulation Overall status at discharge: patient is back to baseline Time Spent with Patient Time spent: Greater than 30 minutes Exam Vital Signs (past 8 hours): - 05/19/24 10:00 05/19/24 14:00 Pulse Oximetry 96 96 Oxygen Delivery Method Room Air Room Air Oxygen Flow Rate 0 0 Oxygen Delivery Method Room Air Oxygen Flow Rate 0 Narrative Exam Narrative: NAD, alert and oriented. Fluent speech. Lungs are clear, normal rate and effort. Heart is regular, no murmur gallop or rub. Abdomen is soft, non distended. Extremities are free of edema. Objective Labs 05/19/24 13:05 05/19/24 05:10 Labs: Laboratory Results - last 24 hr 05/18/24 05/19/24 05/19/24 15:47 05:10 13:05 WBC 8.3 RBC 2.56 L Hgb 8.3 L 8.5 L Hct 24.3 L 25.0 L MCV 94.7 MCH 32.2 MCHC 34.0 RDW 13.9 Plt Count 386 Neut % (Auto) 68.9 Lymph % (Auto) 16.1 L [place] % (Auto) 12.3 Eos % (Auto) 2.4 Baso % (Auto) 0.3 Neut # (Auto) 5700 Lymph # (Auto) 1300 [place] # (Auto) 1000 H Eos # (Auto) 200 Baso # (Auto) 0 Sodium 139 Potassium 3.2 L Chloride 111 H Carbon Dioxide 22 BUN 21 H Creatinine 0.85 Estimated GFR > 60 BUN/Creatinine Ratio 24.7 H Glucose 143 H Calcium 8.2 L Magnesium 2.2 Total Bilirubin 0.7 AST 199 H ALT 148 H Alkaline Phosphatase 214 H Total Protein 6.4 Albumin 3.2 L Globulin 3.2 Albumin/Globulin Ratio 1.0 SARS-CoV-2 (PCR) Negative Influenza A (RT-PCR) Flu a negative Influenza B (RT-PCR) Flu b negative RSV (PCR) Negative PFSH Medical History Lower back pain 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 of insulin Preventative health care GERD (gastroesophageal reflux disease) History of migraine headaches Actinic keratosis Medication side effect Greater trochanteric bursitis of both hips Iliotibial band tendinitis of both sides Somatic dysfunction of lower extremity Bilateral knee pain Medicare annual wellness visit, subsequent Vitamin D deficiency History of pneumonia (~2013) Carpal tunnel syndrome (~2013) Fmgn-Ocsf-Uxee syndrome (Unknown) Pyelonephritis (~2013) Hx of myocardial infarction (~2013) Hyperlipemia (Unknown) Hypertension (Unknown) Diabetes (Unknown) Surgical History History of back surgery (Unknown) Hx of knee surgery (Unknown) Hx of hysterectomy (Unknown) Hx of cholecystectomy (Unknown) 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 Abdomen pain related to a gastric ulcer identified on CT. Present on admission and active. 2. Possible mild blood loss anemia, present on admission and stable. 3. Right kidney lesion, present on admission and active. 4. DM 2, present on admission and stable. 5. Hypertension, present on admission and stable. 6. Hyperlipidemia, present on admission stable. 7. Recent right total knee replacement, present on admission and stable. Plan of Treatment: Discussed her discharge with Dr. Wilson. She will be placed on very low-dose Eliquis for 14 days at 5 mg once a day. She was seen in Orthopedic Clinic on May 22 and they will request an H&H to follow her blood counts after. She was advised to watch for hematemesis blood, bright red blood per rectum, or melena. She will be on Protonix b.i.d. for 2-3 months. Discharge Plan Discharge Plan Patient Disposition: Home Provider Discharge Comment: Stable for discharge home on Protonix twice a day and low-dose Eliquis. Discussed with her orthopedic surgeon, Dr. Wilson. Discharge orders & Medications Prescriptions: New Eliquis 5 mg tablet 5 mg PO DAILY Qty: 21 0RF Rx Instructions: Modified by ortho for DVT prophylaxis after TKR with gastric ulcer. pantoprazole 40 mg tablet,delayed release (DR/EC) 40 mg PO BID Qty: 30 2RF Continued VITAMIN B COMPLEX 1 cap PO QDAY Qty: 0 FOLIC ACID/VIT A/VIT B1/VIT (#MULTIVITAMIN) 1 tab PO QDAY Qty: 0 (DME) Blood Glucose Test Strip See Rx Instructions .ROUTE .MEDSUPPLY Qty: 400 3RF Rx Instructions: Use to test blood glucose FOUR TIMES DAILY. albuterol sulfate 90 mcg/actuation HFA aerosol inhaler 2 puff PO Q4-6H PRN (Reason: for wheezing) Qty: 8.5 0RF Rx Instructions: Need appointment for further refills 12/28/23 amlodipine 10 mg tablet 10 mg PO QDAY Qty: 90 3RF atorvastatin [Lipitor] 10 mg tablet 10 mg PO HS Qty: 90 3RF potassium chloride 10 mEq capsule, extended release 10 meq PO DAILY Qty: 90 3RF lancets [OneTouch Delica Plus Lancet] 30 gauge misc See Rx Instructions .ROUTE .COMPLEX Qty: 400 2RF Dose Instruction: USE TO TEST BLOOD SUGAR FOUR TIMES DAILY Rx Instructions: USE TO TEST BLOOD SUGAR FOUR TIMES DAILY (DME) blood-glucose meter [OneTouch Ultra2 Meter] Misc See Rx Instructions .Route Qty: 1 1RF Rx Instructions: USE TO TEST BLOOD SUGAR FOUR TIMES DAILY (DME) Disabled Parking Permit Qty: 1 0RF Rx Instructions: As directed cholecalciferol (vitamin D3) 25 mcg (1,000 unit) capsule 25 mcg PO DAILY (DME) [place] 0 .Route .MEDSUPPLY Qty: 100 3RF Dose Instruction: As directed Rx Instructions: Use to inject insulin daily. generic pen needles. [id number] () GRN tramadol 50 mg tablet 50 mg PO BID PRN (Reason: pain) Qty: 30 0RF sumatriptan succinate [Imitrex] 50 mg tablet 50 mg PO PRN Qty: 9 2RF (DME) pen needle, diabetic [TechLITE Pen Needle] 32 gauge x 5/32 needle See Rx Instructions .ROUTE DAILY Qty: 1200 Rx Instructions: As directed ondansetron HCl 4 mg tablet 4 mg PO Q8H PRN (Reason: nausea and vomiting) 30 Days Qty: 30 0RF insulin glargine [Lantus Solostar U-100 Insulin] 100 unit/mL (3 mL) insulin pen 5 unit SUBCUT DAILY Qty: 3 0RF Rx Instructions: ADMINISTER 30 UNITS UNDER THE SKIN EVERY EVENING Follow up/Referrals: Chandler Roman, [Primary Care Provider] - Discharge Health Status Multidrug resistant organism: No MDRO Diet/Activity/Treatments Diet: Carb-consistent/Diabetic Activity: As tolerated. Other treatments: Follow up with Orthopedics as scheduled on May 22, we will have a repeat blood count drawn after clinic that day. Visit Report/Discharge Packet Instructions: Gastrointestinal Bleeding, Pantoprazole, Apixaban Stand Alone Forms: Patient Portal/API Discharge Data Primary Care Provider: Chandler Roman Attending Provider: Franco Garland Admit Date/Time: 05/18/24 17:48 Quality VTE Deep Vein Thrombosis/Pulmonary Embolism Present on Admission: No MIPS - DC The patient has a history of heart transplant or Left Ventricular Assist Device (LVAD). If yes, STOP here.: No The patient has current or prior documentation of left ventricular ejection fraction (LVEF) less than or equal to 40%, or moderate or severely depressed left ventricular systolic function.: No
== END 2024-05-19 18:10 | disposition home or self-care (01) ==
LOC: ED 17:48 → AC 17:48
PROVIDERS: Hospitalist; Admitting Provider Internal Medicine; Emergency Provider Emergency Medicine; Family Provider Family Medicine; PCP Family Medicine; Referring Provider Emergency Medicine; Visit Provider Internal Medicine
DX: K25.3 Acute gastric ulcer without hemorrhage or perforation (principal); E11.9 Type 2 diabetes mellitus without complications; Z79.4 Long term (current) use of insulin; I10 Essential (primary) hypertension; Z11.52 Encounter for screening for COVID-19
CPT/HCPCS: 0241U; 36415; 74177; 80053; 81003; 82962; 83690; 83735; 85014; 85018; 85025; 93005; 93010; 96361; 96372; 96374; 96375; 96376; 99231; 99232; 99284; G0378; J1170; J2270; J2405; J2470; Q9967

== ENCOUNTER → 2024-06-06 14:22 | Outpatient (CLI) | payer MEDICARE, SELFPAY ==
[2024-05-18 18:21] VITALS: BMI 26.6
[2024-06-06 16:44] LABS: Appearance Urine UA CLEAR; Bilirubin Urine UA NEGATIVE (NEGATIVE); Color Urine UA YELLOW; Glucose Urine UA TRACE g/dL (Negative); Ketones Urine UA TRACE (NEGATIVE); Leukocyte Esterase Urine UA NEGATIVE (NEGATIVE); Nitrite Urine UA NEGATIVE (Negative); Occult Blood Urine UA NEGATIVE (Negative); Protein Urine UA TRACE (Negative); Specific Gravity Urine UA 1.025 (1.000-1.035); Urobilinogen Urine UA 0.2 E.U./dL (0.2)
[2024-06-06 17:03] LABS: Bacteria Urine Occasional (0-1); Mucus Urine 1+ (Negative); RBC Urine 0-1/HPF (0-5/HPF); Squamous Epithelial Cell Urine 10-30 /HPF (0-5/HPF); Urine Volume 10mL (spun); WBC Urine 0-1/HPF (0-5/HPF)
[2024-06-06 17:04] LABS: Culture Indicated Urine Cult Not Indicated; Hyaline Casts Urine 0-1/LPF
== END ==
PROVIDERS: Family Provider Family Medicine; PCP Family Medicine; Referring Provider Family Medicine; Visit Provider Family Medicine
DX: N39.0 Urinary tract infection, site not specified (principal)
CPT/HCPCS: 81001

== ENCOUNTER → 2024-06-10 13:42 | Outpatient (CLI) | payer MEDICARE, SELFPAY ==
[2024-05-18 18:21] VITALS: BMI 26.6
--- NOTE | 2024-06-10 | DI.MRI.S_ITS ---
PROCEDURE: MR LUMBAR SPINE WO CON INDICATIONS: SPINAL STENOSIS OF LUMBAR REGION TECHNIQUE: Noncontrast sagittal T1 spin echo and T2 fast echo, sagittal STIR, and T2 fast spin echo through the lumbar spine. In cases with scoliosis, additional coronal T2 fast spin echo may be performed. COMPARISON: None. FINDINGS: Image quality: Excellent. Alignment and Curvature: There is normal bony alignment. Bone Marrow: Marrow is of normal overall signal. No acute vertebral body compression fractures. Spinal Cord: Conus medullaris terminates at the L1 level. Visualized cord demonstrates normal signal and size. Paraspinous Soft Tissues: No paravertebral masses. T12-L1: Normal appearance. L1-L2: Normal appearance. L2-L3: Broad-based disc bulge, ligamentum flavum hypertrophy, mild facet hypertrophy. Mild spinal canal narrowing. L3-L4: Broad-based disc bulge, ligamentum flavum hypertrophy, facet hypertrophy. Questionable annular fissure. Facet effusions. [id number] spinal canal narrowing. L4-L5: Severe disc height loss, with ossification of the disc space. Mild facet hypertrophy hypertrophy. L5-S1: Central disc protrusion, contacting the exiting right L5 nerve root. Facet hypertrophy. IMPRESSION: Multilevel degenerative disc disease and facet arthrosis. Of note: Central disc protrusion at L5-S1, contacting the exiting right L5 nerve root. Up to mild spinal canal narrowing at L2-3 and [id number] spinal canal narrowing at L3-4. Dictated by: Bulmaro Coyle M.D. on 06/12/2024 at 11:25 Approved by: Bulmaro Coyle M.D. on 06/12/2024 at 11:35
== END ==
LOC: MRI 13:42
PROVIDERS: Family Provider Family Medicine; PCP Family Medicine; Referring Provider Physical Medicine & Rehabilitation Pain Medicine; Visit Provider Physical Medicine & Rehabilitation Pain Medicine
DX: M48.061 Spinal stenosis, lumbar region without neurogenic claudication (principal); M51.36 Other intervertebral disc degeneration, lumbar region; M47.816 Spondylosis without myelopathy or radiculopathy, lumbar region; M51.27 Other intervertebral disc displacement, lumbosacral region
CPT/HCPCS: 72148

== ENCOUNTER → 2024-07-25 09:22 | Outpatient (CLI) | payer MEDICARE, SELFPAY ==
[2024-05-18 18:21] VITALS: BMI 26.6
[2024-07-25 09:50] LABS: Add Manual Diff / Slide Review NO; Basophils Absolute Auto 0 /uL (0-100); Basophils Percent Auto 0.6 % (0-2); Eosinophils Absolute Auto 100 /uL (0-450); Eosinophils Percent Auto 3.3 % (2-4); Hematocrit 36.3 % (36-46); Lymphocytes Absolute Auto 1600 /uL (1100-4500); Lymphocytes Percent Auto 45.4 % (25-40); Mean Corpuscular HGB Conc 33.1 % (30-36); Mean Corpuscular Hemoglobin 31.3 PG (26-34); Mean Corpuscular Volume 94.4 fL (80-100); Monocytes Absolute Auto 300 /uL (0-900); Monocytes Percent Auto 7.9 % (3-14); Neutrophils Absolute Auto 1500 /uL (1500-7000); Neutrophils Percent Auto 42.8 % (50-75); Platelet Count 266 X10^3/uL (150-400); Red Blood Cell Count 3.85 X10^6/uL (4.0-5.2); Red Cell Distribution Width 15.1 % (11.6-14.8); White Blood Cell Count 3.6 X10^3/uL (4.5-11.0)
[2024-07-25 10:16] LABS: HEMOLYSIS < 15 (0-50); Iron 85 ug/dL (37-170)
[2024-07-25 10:18] LABS: Alanine Aminotransferase 16 IU/L (<35); Albumin 4.1 g/dL (3.5-5.0); Alkaline Phosphatase 63 U/L (38-126); Aspartate Aminotransferase 23 IU/L (14-36); BUN Creatinine Ratio 23.3 (6-22); Bilirubin Total 0.5 mg/dL (0.2-1.3); Blood Urea Nitrogen 17 mg/dL (7-17); Calcium 9.9 mg/dL (8.4-10.2); Carbon Dioxide 26 mmol/L (22-32); Chloride 105 mmol/L (98-107); Estimated Glomerular Filt Rate > 60 mL/min (>60); Glucose 112 mg/dL (80-110); HEMOLYSIS < 15 (0-50); Potassium 3.8 mmol/L (3.4-5.1); Sodium 139 mmol/L (137-145); Total Protein 8.1 g/dL (6.3-8.2)
[2024-07-25 10:33] LABS: Percent Iron Saturation 32 % (15-50); Total Iron Binding Capacity 264 ug/dL (265-497); Transferrin 204 mg/dL (206-381)
[2024-07-25 10:49] LABS: Creatinine Urine Random 97.59 mg/dL
[2024-07-25 10:55] LABS: Microalbumin Urine Random 0.9 mg/dL (0-1.6)
[2024-07-25 11:14] LABS: Vitamin B12 324 pg/mL (239-931)
== END ==
PROVIDERS: Family Provider Family Medicine; PCP Family Medicine; Referring Provider Family Medicine; Visit Provider Family Medicine
DX: N17.9 Acute kidney failure, unspecified (principal); E83.52 Hypercalcemia; E11.9 Type 2 diabetes mellitus without complications; E78.5 Hyperlipidemia, unspecified; I10 Essential (primary) hypertension
CPT/HCPCS: 36415; 80053; 82043; 82570; 82607; 83540; 83550; 85025

== ENCOUNTER → 2024-09-11 12:19 | Outpatient (CLI) | payer MEDICARE, SELFPAY ==
[2024-05-18 18:21] VITALS: BMI 26.6
[2024-09-11 13:23] LABS: Add Manual Diff / Slide Review NO; Basophils Absolute Auto 0 /uL (0-100); Basophils Percent Auto 0.4 % (0-2); Eosinophils Absolute Auto 200 /uL (0-450); Eosinophils Percent Auto 3.5 % (2-4); Hematocrit 37.1 % (36-46); Hemoglobin 12.4 g/dL (12.0-16.0); Lymphocytes Absolute Auto 1600 /uL (1100-4500); Lymphocytes Percent Auto 29.8 % (25-40); Mean Corpuscular HGB Conc 33.4 % (30-36); Mean Corpuscular Hemoglobin 30.5 PG (26-34); Mean Corpuscular Volume 91.4 fL (80-100); Monocytes Absolute Auto 400 /uL (0-900); Monocytes Percent Auto 7.4 % (3-14); Neutrophils Absolute Auto 3300 /uL (1500-7000); Neutrophils Percent Auto 58.9 % (50-75); Platelet Count 247 X10^3/uL (150-400); Red Blood Cell Count 4.06 X10^6/uL (4.0-5.2); Red Cell Distribution Width 15.1 % (11.6-14.8); White Blood Cell Count 5.5 X10^3/uL (4.5-11.0)
[2024-09-11 13:28] LABS: Hemoglobin A1C% w Est Avg Glu 6.8 % (4.0-6.0)
[2024-09-11 14:48] LABS: Creatinine Urine Random 211.55 mg/dL
[2024-09-11 14:52] LABS: Microalbumin Urine Random 1.6 mg/dL (0-1.6)
[2024-09-11 20:34] LABS: HEMOLYSIS < 15 (0-50); Iron 92 ug/dL (37-170)
[2024-09-11 20:46] LABS: Percent Iron Saturation 34 % (15-50); Total Iron Binding Capacity 272 ug/dL (265-497); Transferrin 246 mg/dL (206-381)
[2024-09-11 20:53] LABS: Free T4, Direct Thyroxine 0.98 ng/dL (0.78-2.19)
[2024-09-11 21:07] LABS: Thyroid Stimulating Hormone 1.59 uIU/mL (0.47-4.68)
[2024-09-11 21:13] LABS: Ferritin 123 ng/mL (11-264)
== END ==
PROVIDERS: Family Provider Family Medicine; PCP Family Medicine; Referring Provider Family Medicine; Visit Provider Family Medicine
DX: E11.9 Type 2 diabetes mellitus without complications (principal); R79.0 Abnormal level of blood mineral; I10 Essential (primary) hypertension; R79.89 Other specified abnormal findings of blood chemistry
CPT/HCPCS: 36415; 82043; 82570; 82728; 83036; 83540; 83550; 84439; 84443; 85025

== ENCOUNTER → 2024-09-28 12:43 | Outpatient (CLI) | payer MEDICARE, SELFPAY ==
[2024-05-18 18:21] VITALS: BMI 26.6
[2024-09-22 08:54] VITALS: BMI 26.6
--- NOTE | 2024-09-28 12:45 | DI.MG.S_ITS ---
BILATERAL DIGITAL SCREENING MAMMOGRAM 3D/2D WITH CAD: 09/28/2024 CLINICAL: Routine screening. Comparison is made to exams dated: 03/11/2023 mammogram, 04/09/2021 mammogram, and 06/06/2019 mammogram - [facility]. There are scattered areas of fibroglandular density (category b / 25%-50% glandular tissue). Current study was also evaluated with a Computer Aided Detection (CAD) system. There are benign calcifications in both breasts. There also are benign vascular calcifications in both breasts. No significant masses, calcifications, or other findings are seen in either breast. There has been no significant interval change. IMPRESSION: BENIGN There is no mammographic evidence of malignancy. A 1 year screening mammogram is recommended. Based on the Tyrer Cuzick model (a risk assessment model) the patient's lifetime risk is 2.7% and her 10 year risk is 0.0%. According to the ACR, ACS, and NCCN guidelines, an annual breast MRI exam along with mammogram is recommended if the patient's lifetime risk is 20% or greater. This exam was interpreted at Station ID: [id number]. NOTE: For mammograms, a report in lay terms will be sent to the patient. Approximately 15% of breast malignancies will not be visualized mammographically. In the management of a palpable breast mass, a negative mammogram must not discourage biopsy of a clinically suspicious lesion. Electronically Signed By: Dary garcia/tommy:09/28/2024 16:24:06 letter sent: Normal Exam ACR BI-RADS Category 2: Benign
[2024-09-28 13:19] LABS: Estimated Glomerular Filt Rate > 60 mL/min (>60)
--- NOTE | 2024-09-28 13:25 | DI.CT.S_ITS ---
PROCEDURE: CT ABDOMEN RENAL PROTOCOL INDICATIONS: evaluation of renal cyst TECHNIQUE: Optional 5 mm thick noncontrast images acquired from the diaphragm to the iliac crests. After the administration of intravenous contrast, 5 mm thick images again acquired from the diaphragm to the iliac crests in the arterial and urographic phases. 5 mm thick coronal and sagittal reformats were then acquired. For radiation dose reduction, the following was used: automated exposure control, adjustment of mA and/or kV according to patient size. COMPARISON: [facility], , MR ABDOMEN WO/W CON, 04/20/2024, 14:58. FINDINGS: Image quality: Diagnostic. Kidneys and Ureters: Small kidneys, with innumerable cystic lesions present. The previously described T1 hyperintense cystic lesions with indeterminate enhancement characteristics are described below: -2.3 cm lesion on the superior pole of the left kidney with definite delayed enhancement (30 Hounsfield unit on noncontrast sequence, 59 on delayed sequence). This is stable in size. -2.1 cm exophytic lesion off the inferior pole of the right kidney with without enhancement (37 on noncontrast sequence and 46 on the delayed). This is unchanged from prior. Most cystic lesions are tiny, which can correlate with lithium use. OTHER: Lower chest: Small hiatal hernia. Liver: No solid mass. Gallbladder: Absent. Biliary ducts: No intrahepatic or extrahepatic biliary dilation, accounting for a post cholecystectomy state. Pancreas: No ductal dilation. Spleen: Size is within normal limits. Adrenal Glands: No adrenal nodules. Stomach and Bowel: Normal colonic caliber, without significant wall thickening. Colonic diverticulosis without evidence of diverticulitis. Peritoneum: No abnormal intraperitoneal fluid. No free air. Ventral Wall: No hernia. Abdominal Nodes: No retroperitoneal or mesenteric adenopathy by size criteria. Vessels: Aorta and inferior vena cava are normal in size. Bones: No aggressive osseous abnormality. IMPRESSION: Polycystic kidneys. 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 Consider urology referral for further management. The exophytic cyst off the inferior pole of the right kidney demonstrates no enhancement, likely indicating a benign hemorrhagic cyst. Dictated by: Bulmaro Coyle M.D. on 09/28/2024 at 14:47 Approved by: Bulmaro Coyle M.D. on 09/28/2024 at 14:55
== END ==
PROVIDERS: Orthopaedic Surgery; Family Provider Family Medicine; PCP Family Medicine; Referring Provider Family Medicine; Visit Provider Family Medicine
DX: Z12.31 Encounter for screening mammogram for malignant neoplasm of breast (principal); N28.1 Cyst of kidney, acquired; N28.9 Disorder of kidney and ureter, unspecified; N17.9 Acute kidney failure, unspecified; E11.9 Type 2 diabetes mellitus without complications; I10 Essential (primary) hypertension; K44.9 Diaphragmatic hernia without obstruction or gangrene; K57.90 Diverticulosis of intestine, part unspecified, without perforation or abscess without bleeding
CPT/HCPCS: 36415; 74170; 77063; 77067; 82565; Q9967

== ENCOUNTER → 2024-10-06 13:30 | Outpatient (CLI) | payer MEDICARE, SELFPAY ==
[2024-09-22 08:54] VITALS: BMI 26.6
[2024-10-06 14:08] LABS: Add Manual Diff / Slide Review NO; Basophils Absolute Auto 0 /uL (0-100); Basophils Percent Auto 0.7 % (0-2); Eosinophils Absolute Auto 300 /uL (0-450); Eosinophils Percent Auto 4.6 % (2-4); Hematocrit 36.3 % (36-46); Hemoglobin 12.1 g/dL (12.0-16.0); Lymphocytes Absolute Auto 2000 /uL (1100-4500); Lymphocytes Percent Auto 34.5 % (25-40); Mean Corpuscular HGB Conc 33.5 % (30-36); Mean Corpuscular Hemoglobin 30.8 PG (26-34); Monocytes Absolute Auto 500 /uL (0-900); Monocytes Percent Auto 8.8 % (3-14); Neutrophils Absolute Auto 3000 /uL (1500-7000); Neutrophils Percent Auto 51.4 % (50-75); Platelet Count 250 X10^3/uL (150-400); Red Blood Cell Count 3.94 X10^6/uL (4.0-5.2); Red Cell Distribution Width 14.8 % (11.6-14.8); White Blood Cell Count 5.9 X10^3/uL (4.5-11.0)
[2024-10-06 14:18] LABS: Appearance Urine UA CLEAR; Bilirubin Urine UA NEGATIVE (NEGATIVE); Color Urine UA YELLOW; Glucose Urine UA NEGATIVE (Negative); Ketones Urine UA NEGATIVE (NEGATIVE); Leukocyte Esterase Urine UA TRACE (NEGATIVE); Nitrite Urine UA NEGATIVE (Negative); Occult Blood Urine UA NEGATIVE (Negative); Protein Urine UA NEGATIVE (Negative); Specific Gravity Urine UA <=1.005 (1.000-1.035); Urobilinogen Urine UA 0.2 E.U./dL (0.2)
[2024-10-06 14:20] LABS: pH Urine UA 5.5 (4.5-8.0)
[2024-10-06 14:21] LABS: Urine Volume 10mL (spun)
[2024-10-06 14:22] LABS: RBC Urine None Seen (0-5/HPF); WBC Urine 1-5/HPF (0-5/HPF)
[2024-10-06 14:23] LABS: Bacteria Urine Many (>30); Culture Indicated Urine Specimen Cultured; Squamous Epithelial Cell Urine None Seen (0-5/HPF)
[2024-10-06 14:24] LABS: Alanine Aminotransferase 23 IU/L (<35); Albumin 4.3 g/dL (3.5-5.0); Albumin Globulin Ratio 1.1 (1.0-2.8); Alkaline Phosphatase 81 U/L (38-126); Aspartate Aminotransferase 29 IU/L (14-36); BUN Creatinine Ratio 25.3 (6-22); Bilirubin Total 0.4 mg/dL (0.2-1.3); Blood Urea Nitrogen 19 mg/dL (7-17); Calcium 9.4 mg/dL (8.4-10.2); Carbon Dioxide 24 mmol/L (22-32); Chloride 104 mmol/L (98-107); Estimated Glomerular Filt Rate > 60 mL/min (>60); Globulin 3.9 g/dL (1.7-4.1); Glucose 107 mg/dL (80-110); HEMOLYSIS < 15 (0-50); Sodium 137 mmol/L (137-145); Total Protein 8.2 g/dL (6.3-8.2)
== END ==
LOC: LAB 13:32
PROVIDERS: Family Provider Family Medicine; PCP Family Medicine; Referring Provider Orthopaedic Surgery Orthopaedic Surgery of the Spine; Visit Provider Orthopaedic Surgery Orthopaedic Surgery of the Spine
DX: Z79.01 Long term (current) use of anticoagulants (principal); R73.09 Other abnormal glucose; Z01.812 Encounter for preprocedural laboratory examination; D50.9 Iron deficiency anemia, unspecified; N39.0 Urinary tract infection, site not specified
CPT/HCPCS: 36415; 80053; 81001; 83036; 85025; 87077; 87086; 87186

== ENCOUNTER → 2024-11-28 09:03 | Outpatient (CLI) | payer MEDICARE, SELFPAY ==
[2024-09-22 08:54] VITALS: BMI 26.6
[2024-11-28 09:56] LABS: Add Manual Diff / Slide Review NO; Basophils Absolute Auto 0 /uL (0-100); Basophils Percent Auto 0.6 % (0-2); Eosinophils Absolute Auto 100 /uL (0-450); Eosinophils Percent Auto 2.2 % (2-4); Hematocrit 34.2 % (36-46); Hemoglobin 11.7 g/dL (12.0-16.0); Lymphocytes Absolute Auto 1700 /uL (1100-4500); Lymphocytes Percent Auto 38.2 % (25-40); Mean Corpuscular HGB Conc 34.3 % (30-36); Mean Corpuscular Hemoglobin 32.2 PG (26-34); Monocytes Absolute Auto 500 /uL (0-900); Monocytes Percent Auto 11.2 % (3-14); Neutrophils Absolute Auto 2100 /uL (1500-7000); Neutrophils Percent Auto 47.8 % (50-75); Platelet Count 282 X10^3/uL (150-400); Red Blood Cell Count 3.64 X10^6/uL (4.0-5.2); Red Cell Distribution Width 14.7 % (11.6-14.8); White Blood Cell Count 4.3 X10^3/uL (4.5-11.0)
[2024-11-28 10:16] LABS: HEMOLYSIS < 15 (0-50); Iron 97 ug/dL (37-170)
[2024-11-28 10:22] LABS: Alanine Aminotransferase 21 IU/L (<35); Albumin 4.2 g/dL (3.5-5.0); Albumin Globulin Ratio 1.2 (1.0-2.8); Alkaline Phosphatase 77 U/L (38-126); Aspartate Aminotransferase 28 IU/L (14-36); BUN Creatinine Ratio 23.6 (6-22); Bilirubin Total 0.6 mg/dL (0.2-1.3); Blood Urea Nitrogen 17 mg/dL (7-17); Calcium 9.4 mg/dL (8.4-10.2); Carbon Dioxide 23 mmol/L (22-32); Chloride 108 mmol/L (98-107); Estimated Glomerular Filt Rate > 60 mL/min (>60); Globulin 3.4 g/dL (1.7-4.1); Glucose 90 mg/dL (80-110); HEMOLYSIS < 15 (0-50); Potassium 4.4 mmol/L (3.4-5.1); Sodium 139 mmol/L (137-145); Total Protein 7.6 g/dL (6.3-8.2)
[2024-11-28 10:29] LABS: Percent Iron Saturation 37 % (15-50); Total Iron Binding Capacity 265 ug/dL (265-497); Transferrin 242 mg/dL (206-381)
[2024-11-28 10:38] LABS: T4 Total Thyroxine 6.85 ug/dL (5.5-11.0)
[2024-11-28 10:51] LABS: Thyroid Stimulating Hormone 1.01 uIU/mL (0.47-4.68)
== END ==
PROVIDERS: Family Provider Family Medicine; PCP Family Medicine; Referring Provider Family Medicine; Visit Provider Family Medicine
DX: D50.9 Iron deficiency anemia, unspecified (principal); E03.9 Hypothyroidism, unspecified; R79.89 Other specified abnormal findings of blood chemistry
CPT/HCPCS: 36415; 80053; 83540; 83550; 84436; 84443; 85025

== ENCOUNTER → 2025-03-21 09:41 | Outpatient (CLI) | payer MEDICARE, SELFPAY ==
[2024-09-22 08:54] VITALS: BMI 26.6
--- NOTE | 2025-03-21 09:42 | DI.MRI.S_ITS ---
PROCEDURE: MR ABDOMEN RENAL PROTOCOL INDICATIONS: left upper pole exophytic mass/ renal mass TECHNIQUE: Coronal HASTE through abdomen and pelvis; axial 2D FLASH in- and [id number] (with and without fat saturation), and breath-hold T2 FSE from the hepatic dome to the bottom of the kidneys. Coronal HASTE MR urogram of kidneys and bladder. Dynamic coronal VIBE during IV gadolinium administration; postgadolinium axial VIBE or 2D FLASH with fat saturation from the hepatic dome through the kidneys. COMPARISON: [facility], CT, CT ABDOMEN RENAL PROTOCOL, 09/28/2024, 13:25. FINDINGS: Image quality: Diagnostic. Several sequences degraded by artifact, particularly the postcontrast coronal images. Kidneys and Ureters: No hydronephrosis. Innumerable renal cysts bilaterally. Majority of the cysts are small and homogeneous T2 hyperintense. -Right mid/inferior exophytic cyst measuring 2.1 x 1.7 cm, (3/19), previously 2.3 x 2.[address] 04/19/2024. Heterogeneous T2 hyperintense. T1 signal is difficult to evaluate due to artifact. Enhancement evaluation is also degraded by artifact. No convincing restricted diffusion. -Left superior pole exophytic lesion measuring 2.4 x 2.3 cm, (3/20), previously 2.3 x 2 cm on 04/19/2024. Heterogeneous T2 hypointense. Enhancement evaluation is degraded by artifact. OTHER: Lung bases: Small hiatal hernia. Liver: No solid mass. Gallbladder: Absent. Biliary ducts: No biliary dilation. Pancreas: No ductal dilation. Spleen: Size is within normal limits. Adrenal Glands: No adrenal nodules. Stomach and Bowel: Normal colonic caliber, without significant wall thickening. Normal appendix. Peritoneum: No abnormal intraperitoneal fluid. No free air. Ventral Wall: No hernia. Abdominal Nodes: No retroperitoneal or mesenteric adenopathy by size criteria. Vessels: Aorta and inferior vena cava are normal in size. Bones: No aggressive osseous abnormality. IMPRESSION: Image quality is degraded by motion artifact. Enhancement cannot be adequately evaluated. 1. Right mid/inferior exophytic cyst measuring 2.1 cm. Not significantly changed compared to 2023. Favor complicated cyst over mass. 2. Left superior pole exophytic lesion measuring 2.4 cm. Not significantly changed compared to 2023. Indeterminate. -Recommend renal ultrasound to evaluate for internal vascularity. -Ultrasound or CT-guided biopsy could also be considered. Although this biopsy could be difficult given its superior subdiaphragmatic location. 3. No adenopathy seen. Dictated by: Navi Morales M.D. on 03/22/2025 at 11:12 Approved by: Navi Morales M.D. on 03/22/2025 at 11:31
[2025-03-21 12:12] LABS: Add Manual Diff / Slide Review NO; Basophils Absolute Auto 0 /uL (0-100); Basophils Percent Auto 0.3 % (0-2); Eosinophils Absolute Auto 100 /uL (0-450); Eosinophils Percent Auto 0.8 % (2-4); Hematocrit 36.8 % (36-46); Hemoglobin 12.4 g/dL (12.0-16.0); Lymphocytes Absolute Auto 1400 /uL (1100-4500); Lymphocytes Percent Auto 21.7 % (25-40); Mean Corpuscular HGB Conc 33.9 % (30-36); Mean Corpuscular Hemoglobin 31.9 PG (26-34); Mean Corpuscular Volume 94.2 fL (80-100); Monocytes Absolute Auto 400 /uL (0-900); Monocytes Percent Auto 5.6 % (3-14); Neutrophils Absolute Auto 4500 /uL (1500-7000); Neutrophils Percent Auto 71.6 % (50-75); Platelet Count 204 X10^3/uL (150-400); Red Cell Distribution Width 13.2 % (11.6-14.8); White Blood Cell Count 6.2 X10^3/uL (4.5-11.0)
[2025-03-21 12:31] LABS: HEMOLYSIS < 15 (0-50); Iron 103 ug/dL (37-170)
[2025-03-21 12:44] LABS: Percent Iron Saturation 36 % (15-50); Total Iron Binding Capacity 287 ug/dL (265-497); Transferrin 243 mg/dL (206-381)
[2025-03-21 12:52] LABS: Free T4, Direct Thyroxine 1.12 ng/dL (0.78-2.19)
[2025-03-21 13:06] LABS: Thyroid Stimulating Hormone 1.17 uIU/mL (0.47-4.68)
[2025-03-21 13:12] LABS: Ferritin 113 ng/mL (11-264)
[2025-03-21 13:25] LABS: Vitamin B12 427 pg/mL (239-931)
== END ==
PROVIDERS: Family Provider Family Medicine; PCP Family Medicine; Referring Provider Urology; Visit Provider Urology
DX: N28.89 Other specified disorders of kidney and ureter (principal); D50.9 Iron deficiency anemia, unspecified; E03.9 Hypothyroidism, unspecified; N28.1 Cyst of kidney, acquired; K44.9 Diaphragmatic hernia without obstruction or gangrene; Z90.49 Acquired absence of other specified parts of digestive tract
CPT/HCPCS: 36415; 74183; 82607; 82728; 83540; 83550; 84439; 84443; 85025; A9579

== ENCOUNTER → 2025-03-23 14:54 | Outpatient (CLI) | payer MEDICARE, SELFPAY ==
[2024-09-22 08:54] VITALS: BMI 26.6
[2025-03-23 15:35] LABS: Alanine Aminotransferase 21 IU/L (<35); Albumin 4.4 g/dL (3.5-5.0); Albumin Globulin Ratio 1.2 (1.0-2.8); Alkaline Phosphatase 88 U/L (38-126); Aspartate Aminotransferase 27 IU/L (14-36); BUN Creatinine Ratio 30.6 (6-22); Bilirubin Total 0.6 mg/dL (0.2-1.3); Blood Urea Nitrogen 22 mg/dL (7-17); Calcium 9.6 mg/dL (8.4-10.2); Carbon Dioxide 21 mmol/L (22-32); Chloride 108 mmol/L (98-107); Estimated Glomerular Filt Rate > 60 mL/min (>60); Globulin 3.8 g/dL (1.7-4.1); Glucose 132 mg/dL (70-99); HEMOLYSIS 20 (0-50); Potassium 3.9 mmol/L (3.4-5.1); Sodium 142 mmol/L (137-145); Total Protein 8.2 g/dL (6.3-8.2)
[2025-03-23 15:43] LABS: Hemoglobin A1C% w Est Avg Glu 6.7 % (4.0-6.0)
[2025-03-23 15:50] LABS: Free T4, Direct Thyroxine 1.17 ng/dL (0.78-2.19)
[2025-03-23 16:04] LABS: Thyroid Stimulating Hormone 1.23 uIU/mL (0.47-4.68)
== END ==
PROVIDERS: PCP Family Medicine; Referring Provider Family Medicine; Visit Provider Family Medicine
DX: E11.9 Type 2 diabetes mellitus without complications (principal); E03.9 Hypothyroidism, unspecified; D50.9 Iron deficiency anemia, unspecified; I10 Essential (primary) hypertension
CPT/HCPCS: 36415; 80053; 83036; 84439; 84443

== ENCOUNTER → 2025-08-21 11:55 | Outpatient (CLI) | payer MEDICARE, SELFPAY ==
[2024-09-22 08:54] VITALS: BMI 26.6
--- NOTE | 2025-08-21 11:56 | DI.RAD.S_ITS ---
PROCEDURE: XR DEXA AXIAL SKELETON INDICATIONS: bone density COMPARISON: None. FINDINGS: Lumbar Spine: Bone mineral density 1.024 g/cm2, T score -0.2. Left Femoral Neck: Bone mineral density 0.755 g/cm2, T score -0.8. Left Hip: Bone mineral density 0.973 g/cm2, T score -1.2. Fracture Risk Calculation (when applicable): 10-year fracture risk of a major osteoporotic fracture 11 percent and of a hip fracture 1.8 percent. (T score greater or equal to -1.0 to: NORMAL) (T score from -1.1 to -2.4: OSTEOPENIA) (T score less than or equal to -2.5: OSTEOPOROSIS) IMPRESSION: Minimal osteopenia in the left hip. Follow-up guidelines as follows: Osteoporosis: Consider a repeat DEXA and Vertebral Fracture Assessment (VFA) exam in 2 years or sooner if medically necessary, to reassess this patient's status. Osteopenia: Consider a repeat DEXA in 2-3 years to reassess this patient's status, or if there is a new clinical indication. Normal: Consider a repeat DEXA in 5 years or sooner, or if there is a new clinical indication. All treatment decisions require clinical judgment and consideration of individual patient factors, including patient preferences, comorbidities, previous drug use, risk factors not captured in the FRAX model (e.g., frailty, falls, vitamin D deficiency, increased bone turnover, interval significant decline in bone density ) and possible under- or over-estimation of fracture risk by FRAX. In addition, the NOF Guide recommends that FDA-approved medical therapies be considered in postmenopausal women and men age >= 50 years with a: * Hip or vertebral (clinical or morphometric) fracture * T-score of <=-2.5 at the spine or hip * Ten-year fracture probability by FRAX of >= 3% for hip fracture or >=20% for major osteoporotic fracture. Dictated by: Gisselle Lazar M.D. on 08/22/2025 at 16:38 Approved by: Gisselle Lazar M.D. on 08/22/2025 at 16:39
== END ==
LOC: RAD 11:56
PROVIDERS: PCP Family Medicine; Referring Provider Family Medicine; Visit Provider Family Medicine
DX: M85.88 Other specified disorders of bone density and structure, other site (principal); Z78.0 Asymptomatic menopausal state
CPT/HCPCS: 77080

== ENCOUNTER → 2025-08-22 10:54 | Outpatient (CLI) | payer MEDICARE, SELFPAY ==
[2024-09-22 08:54] VITALS: BMI 26.6
[2025-08-22 11:13] LABS: Add Manual Diff / Slide Review NO; Hematocrit 36.6 % (36-46); Hemoglobin 12.6 g/dL (12.0-16.0); Lymphocytes Absolute Auto 2100 /uL (1100-4500); Mean Corpuscular HGB Conc 34.3 % (30-36); Mean Corpuscular Hemoglobin 31.9 PG (26-34); Mean Corpuscular Volume 93.0 fL (80-100); Platelet Count 220 X10^3/uL (150-400)
[2025-08-22 11:27] LABS: Iron 118 ug/dL (37-170)
[2025-08-22 11:31] LABS: Hemoglobin A1C% w Est Avg Glu 7.1 % (4.0-6.0)
[2025-08-22 11:42] LABS: Alanine Aminotransferase 21 IU/L (<35); Albumin 4.4 g/dL (3.5-5.0); Albumin Globulin Ratio 1.1 (1.0-2.8); Alkaline Phosphatase 71 U/L (38-126); Blood Urea Nitrogen 16 mg/dL (7-17); Calcium 9.7 mg/dL (8.4-10.2); Carbon Dioxide 25 mmol/L (22-32); Chloride 106 mmol/L (98-107); Estimated Glomerular Filt Rate > 60 mL/min (>60); Globulin 3.9 g/dL (1.7-4.1); Glucose 118 mg/dL (70-99); Potassium 4.2 mmol/L (3.4-5.1); Sodium 141 mmol/L (137-145); Total Protein 8.3 g/dL (6.3-8.2)
[2025-08-22 11:51] LABS: Vitamin D 25 Hydroxy (D3) 50.2 ng/mL (30.0-100.0)
[2025-08-22 11:59] LABS: TSH w/ Reflex to FT4 2.08 uIU/mL (0.47-4.68)
[2025-08-22 12:08] LABS: Ferritin 118 ng/mL (11-264); HEMOLYSIS 25 (0-50)
[2025-08-22 15:19] LABS: Microalbumi Creatinin Ratio Ur 23.0 ug/mg CR (<30)
== END ==
PROVIDERS: PCP Family Medicine; Referring Provider Family Medicine; Visit Provider Family Medicine
DX: D50.9 Iron deficiency anemia, unspecified (principal); E11.9 Type 2 diabetes mellitus without complications; E03.9 Hypothyroidism, unspecified; I10 Essential (primary) hypertension
CPT/HCPCS: 36415; 80053; 82043; 82306; 82570; 82728; 83036; 83540; 84443; 85025

== ENCOUNTER → 2025-09-06 09:51 | Outpatient (CLI) | payer MEDICARE, SELFPAY ==
[2024-09-22 08:54] VITALS: BMI 26.6
--- NOTE | 2025-09-06 09:52 | DI.ECHO.S_ITS ---
[facility] : : [id number] : : [place] : : [id number] : : Phone: [phone] Echocardiogram Report + + :Name: AMIE LUTZ Study Date: 09/06/2025 Height: 64 in : :[facility] ReadingLocation: Weight: 175 lb : : Gender: Female BSA: 1.8 m2 : :: 1945 Age: 80 yrs BP: 158/77 mmHg: :Reason For Study: Fatigue : :Ordering Physician: KARLA, : :MIRIAM Performed By: Higinio Knight : :Referring: MIRIAM ACOSTA : + + Interpretation Summary There is mild concentric left ventricular hypertrophy. The ejection fraction is estimated to be 60-65%. Normal diastolic function. The right ventricle is normal in size and function. There is mild tricuspid regurgitation. The right ventricular systolic pressure is estimated to be at least 27 mmHg based on an estimated right atrial pressure of 3 mm Hg. Compared to the prior study 07/09/2023, no major change. Procedure: A two-dimensional transthoracic echocardiogram with color flow and Doppler was performed. The study quality was technically adequate. Comparison is made with the echocardiogram of 07/09/2023. The heart rate ranged between 80-85 bpm during the study. Left Ventricle: The left ventricle is normal in size. There is mild concentric left ventricular hypertrophy. Left ventricular systolic function is normal. The ejection fraction is estimated to be 60-65%. There are no focal wall motion abnormalities. Normal diastolic function. Right Ventricle: The right ventricle is normal in size and function. Atria: The left atrial size is normal. Right atrial size is normal. There is no Doppler evidence for an interatrial shunt. The atrial septum is aneurysmal. Mitral Valve: The mitral valve leaflets appear to open well. There is mild mitral annular calcification. There is no mitral valve stenosis. There is trace mitral regurgitation. Aortic Valve: The aortic valve is trileaflet. The aortic valve opens well. There is no aortic valve stenosis. No aortic regurgitation is present. Tricuspid Valve: The tricuspid valve leaflets are thin and pliable. There is mild tricuspid regurgitation. The right ventricular systolic pressure is estimated to be at least 27 mmHg based on an estimated right atrial pressure of 3 mm Hg. Pulmonic Valve: The pulmonic valve is not well seen, but is grossly normal. There is trace pulmonic regurgitation. Great Vessels: The aortic root is normal size. The ascending aorta is normal in size. The aortic arch could not be visualized. The pulmonary artery is normal size. The IVC is of normal diameter and collapses greater than 50% with a sniff. This suggests a low right atrial pressure of 3 mm Hg. Pericardium/ Pleura There is no pericardial effusion. MMode/2D Measurements & Calculations LVIDd: 4.2 cm LVOT diam: 2.0 cm LVIDs: 2.6 cm Ao root diam: 2.9 cm FS: 36.9 % asc Aorta Diam: 3.3 cm IVSd: 1.1 cm LVPWd: 1.1 cm LV walter. diameter/BSA (cm/m^2): 2.3 LV sys. diameter/BSA (cm/m^2): 1.4 LA A2 area: 16.5 cm2 RA long axis: 4.8 cm LA A4 area: 16.9 cm2 RA area: 12.0 cm2 LA length (vol): 5.5 cm RA vol: 25.6 ml LA vol: 43.4 ml RA : 13.8 ml/m2 LA vol index: 23.5 ml/m2 IVC diam: 1.6 cm RVD1 (basal): 3.6 cm RVD2 (mid): 3.0 cm TAPSE: 1.8 cm Doppler Measurements & Calculations Ao V2 max: 148.8 cm/sec LVOT Max Saad: 92.9 cm/sec Ao V2 mean: 116.4 cm/sec LV V1 max P.5 mmHg Ao max P.9 mmHg LV V1 VTI: 18.4 cm Ao mean P.8 mmHg RALPH(I,D): 2.2 cm2 Ao V2 VTI: 26.9 cm RALPH(V,D): 2.1 cm2 sev ratio: 0.68 RALPH indexed to BSA (cm^2/m^2): 1.2 MV E max saad: 59.4 cm/sec TR max saad: 245.6 cm/sec MV A max saad: 78.7 cm/sec TR max P.1 mmHg MV E/A: 0.75 PA V2 max: 107.9 cm/sec Med Peak E' Saad: 6.0 cm/sec PA V2 mean: 75.1 cm/sec E/E' med: 10.0 PA mean P.5 mmHg Lat Peak E' Saad: 9.5 cm/sec PA pr(Accel): 36.6 mmHg E/E' lat: 6.3 E/e' average: 8.1 MV dec time: 0.23 sec SV(LVOT): 60.5 ml Qp/Qs (V,Ao): 1.0/3.7 Qp/Qs (V,LVOT): 1.0/1.1 Reading Physician:01:27 PM
[2025-09-06 11:45] LABS: Estimated Glomerular Filt Rate > 60 mL/min (>60)
== END ==
PROVIDERS: Urology; PCP Family Medicine; Referring Provider Family Medicine; Visit Provider Family Medicine
DX: I07.1 Rheumatic tricuspid insufficiency (principal); I10 Essential (primary) hypertension; N28.89 Other specified disorders of kidney and ureter
CPT/HCPCS: 36415; 82565; 93306

== ENCOUNTER → 2025-10-02 09:39 | Outpatient (CLI) | payer MEDICARE, SELFPAY ==
[2025-09-06 10:45] VITALS: BMI 26.6
--- NOTE | 2025-10-02 09:51 | DI.CT.S_ITS ---
PROCEDURE: CT ABDOMEN RENAL PROTOCOL INDICATIONS: Left renal mass TECHNIQUE: Optional 5 mm thick noncontrast images acquired from the diaphragm to the iliac crests. After the administration of intravenous contrast, 5 mm thick images again acquired from the diaphragm to the iliac crests in the arterial and urographic phases. 5 mm thick coronal and sagittal reformats were then acquired. For radiation dose reduction, the following was used: automated exposure control, adjustment of mA and/or kV according to patient size. COMPARISON: [facility], CT, CT ABDOMEN PELVIS WO CON, 04/19/2024, 23:23. [facility], MR, MR ABDOMEN RENAL PROTOCOL, 03/21/2025, 10:44. [facility], CT, CT ABDOMEN RENAL PROTOCOL, 09/28/2024, 13:25. FINDINGS: Image quality: Diagnostic. Kidneys and Ureters: Polycystic kidneys. Interval growth of the enhancing lesion on the superior pole of the left kidney measuring 3.3 cm, previously 2.3 cm. Unchanged size of the hyperattenuating lesion along the lateral margin of the right kidney, now without contrast enhancement. This measures 2.1 cm (series 3, image 61). OTHER: Lower chest: Unremarkable. Liver: No solid mass. Gallbladder: Absent. Biliary ducts: No biliary dilation. Pancreas: No ductal dilation. Spleen: Size is within normal limits. Adrenal Glands: No adrenal nodules. Stomach and Bowel: Normal colonic caliber, without significant wall thickening. There is growth a mass within the transverse colonic wall measuring 4.8 x 7.9 cm, previously 4.5 x 5.0 cm. This contains a thin internal septation (series 5, image 72). Peritoneum: No abnormal intraperitoneal fluid. No free air. Ventral Wall: No hernia. Abdominal Nodes: No retroperitoneal or mesenteric adenopathy by size criteria. Vessels: Aorta and inferior vena cava are normal in size. Bones: No aggressive osseous abnormality. IMPRESSION: Growth of the left superior pole lesion with enhancement measuring 3.3 cm, previously 2.3 cm. Findings raise the concern for malignancy, likely papillary given delayed enhancement. Consider tissue sampling. Growth of a submucosal bowel wall mass containing fat but internal thin internal septations measuring 4.8 x 7.9 cm, previously 4.5 x 5.0 cm. The growth and presence of thin septations raises the concern for a liposarcoma. GI referral should be considered. Dictated by: uBlmaro Coyle M.D. on 10/02/2025 at 16:49 Approved by: Bulmaro Coyle M.D. on 10/02/2025 at 16:56
== END ==
LOC: CT 09:40
PROVIDERS: PCP Family Medicine; Referring Provider Urology; Visit Provider Urology
DX: N28.89 Other specified disorders of kidney and ureter (principal); K63.9 Disease of intestine, unspecified; Z90.49 Acquired absence of other specified parts of digestive tract
CPT/HCPCS: 74170; Q9967